=== PATIENT | female | born 1940 | race Caucasian/White ===

== ENCOUNTER 2016-10-13 12:31 | Inpatient (IN) ==
[2016-10-13] MEDS ORDERED: ATROPINE SULFATE PFS IVP PRN (13:13)
[2016-10-13] MEDS ORDERED: MORPHINE 4 MG/ML SYRINGE IVP PRN (13:13)
[2016-10-13] MEDS ORDERED: TYLENOL PO PRN (13:13)
[2016-10-13] MEDS ORDERED: VISTARIL INJ IM PRN (13:13)
[2016-10-13 13:35] VITALS: BMI 47.1
[2016-10-13 13:36] LABS: ABG BASE EXCESS 12 (-2.0-2.0); ABG HCO3 34.5 (22.0-26.0); ABG PCO2 43.1 mmHg (35-45); ABG PH 7.512 (7.35-7.45); ABG TCO2 36 (22.0-28.0)
[2016-10-13 13:37] LABS: BASOPHILS # (AUTO) 0.1 K/uL (0-0.2); BASOPHILS % (AUTO) 0.5 % (0.0-3.0); EOSINOPHILS # (AUTO) 0.2 K/ul (0.0-0.7); EOSINOPHILS % (AUTO) 1.4 % (0.0-7.0); HEMATOCRIT 42.7 % (37.0-47.0); HEMOGLOBIN 14.7 g/dl (12.0-16.0); IMMATURE GRANULOCYTE % (AUTO) 0.5 % (0.0-5.0); LYMPHOCYTES # (AUTO) 2.1 K/uL (0.60-3.4); LYMPHOCYTES % (AUTO) 19.2 (10.0-50.0); MEAN CORPUSCULAR HEMOGLOBIN 28.4 pg (27.0-31.0); MEAN CORPUSCULAR HGB CONC 34.4 (31.8-35.4); MEAN CORPUSCULAR VOLUME 82.6 fl (81.0-99.0); MONOCYTES # (AUTO) 0.7 K/uL (0.4-2.0); MONOCYTES % (AUTO) 5.9 (0-10); NEUTROPHILS # (AUTO) 8.1 K/ul (2.0-6.9); NEUTROPHILS % (AUTO) 72.5; PLATELET COUNT 248 10^3/uL (140-440); RED BLOOD COUNT 5.17 10^6/ul (4.20-5.40); WHITE BLOOD COUNT 11.11 K/ul (4.6-10.2)
[2016-10-13 14:01] LABS: ALANINE AMINOTRANSFERASE 37 U/L (12-78); ALBUMIN 3.6 g/dL (3.4-5.0); ALKALINE PHOSPHATASE 61 U/L (53-141); ANION GAP 13.6; ASPARTATE AMINO TRANSFERASE 32 U/L (15-37); BILIRUBIN,TOTAL 1.53 mg/dL (0.00-1.20); BLOOD UREA NITROGEN 20 mg/dL (7-18); BUN/CREATININE RATIO 24.09; CARBON DIOXIDE 32 mmol/L (23-31); CHLORIDE 88 mmol/L (98-107); CREATINE KINASE 81 U/L; CREATININE 0.83 mg/dL (0.60-1.30); GLUCOSE 124 mg/dL (82-115); MYOGLOBIN 73 ng/ml; POTASSIUM 3.6 mmol/L (3.5-5.10); SODIUM 130 mmol/L (136-145); TOTAL PROTEIN 7.2 g/dL (5.8-8.1)
[2016-10-13] MEDS: SOLU-CORTEF 250 MG IVP SCH ×2 (14:07→21:22)
[2016-10-13] MEDS: LEVAQUIN 500 MG in PREMIX 100 ML D5W 1 BAG IV SCH (14:08)
[2016-10-13] MEDS: TUSSIONEX PO SCH ×2 (14:51→20:40)
[2016-10-13] MEDS ORDERED: NON-FORMULARY MEDICATION (Meclizine Hcl [Meclizine Hcl] 25 MG) PO SCH (15:00)
[2016-10-13 15:19] LABS: BILIRUBIN,URINE Negative (NEGATIVE); KETONES,URINE Negative (NEGATIVE); LEUKOCYTE ESTERASE ,URINE Trace (NEGATIVE); NITRITE,URINE Negative (NEGATIVE); PROTEIN,URINE Negative (NEGATIVE); URINE, BLOOD Negative (NEGATIVE)
[2016-10-13] MEDS: ANTIVERT PO SCH ×2 (15:20→20:40)
[2016-10-13] MEDS: ULTRAM PO PRN (15:21)
[2016-10-13 15:27] LABS: ADD URINE MICROSCOPIC YES; BACTERIA,URINE TRACE (NOT PRESENT)
[2016-10-13] MEDS: PULMICORT 0.5 MG/2 ML NEB SCH (16:54)
[2016-10-13] MEDS: XOPENEX 1.25 MG NEB SCH ×2 (16:55→23:04)
--- NOTE | 2016-10-13 16:55 | DI ---
EXAM: Chest one view, frontal view only. HISTORY: Pneumonitis. COMPARISON: 01/26/2016. FINDINGS: The heart size is normal. There is no pulmonary vascular congestion. The lungs are radha r. No pleural effusion or pneumothorax is seen. No acute osseous abnormality is identified. Since the prior study, there has been no significant interval change. IMPRESSION: No acute cardiopulmonary process.
[2016-10-13] MEDS: ELIQUIS PO SCH (20:40)
[2016-10-13 22:07] LABS: CREATINE KINASE 76 U/L; MYOGLOBIN 64 ng/ml
[2016-10-14] MEDS: XOPENEX 1.25 MG NEB SCH ×4 (04:40→23:05)
[2016-10-14] MEDS: PULMICORT 0.5 MG/2 ML NEB SCH ×2 (04:40→16:57)
[2016-10-14] MEDS: SOLU-CORTEF 250 MG IVP SCH ×3 (05:54→20:49)
[2016-10-14] MEDS: PRILOSEC PO SCH (05:54)
[2016-10-14] MEDS ORDERED: ASPIRIN EC PO SCH (08:00)
[2016-10-14] MEDS: CALAN SR PO SCH (08:50)
[2016-10-14] MEDS ORDERED: NON-FORMULARY MEDICATION (Omeprazole Magnesium [Prilosec Otc] 20 MG) PO SCH ×22 (09:00)
[2016-10-14] MEDS ORDERED: NON-FORMULARY MEDICATION (Verapamil Hcl [Verapamil Er] 240 MG) PO SCH (09:00)
[2016-10-14] MEDS: HYZAAR 50-12.5 MG TAB PO SCH (09:02)
[2016-10-14] MEDS: LEVAQUIN 500 MG in PREMIX 100 ML D5W 1 BAG IV SCH (09:02)
[2016-10-14] MEDS: TUSSIONEX PO SCH ×2 (09:02→20:11)
[2016-10-14] MEDS: ELIQUIS PO SCH ×2 (09:03→20:11)
[2016-10-14] MEDS: ANTIVERT PO SCH ×3 (09:03→20:11)
--- NOTE | 2016-10-14 10:09 | PCM.PROG ---
Attending Provider: ATTENDING PROVIDER: Dr. OANH SULLIVAN DATE OF SERVICE: 10/14/16 SUBJECTIVE: This 76 year old WHITE/ F was hospitalized 10/13/16. The patient is hospitalized with acute bronchitis, pneumonitis, dehydration and pleuritic pain. She states that she rested well. She is doing better, now has no pleuritic pain. Cough is much less. No fever no chills. No PND, no orthopnea. Appetite is improved. REVIEW OF SYSTEMS: CONSTITUTIONAL: No night sweats. No fatigue, malaise, lethargy. No fever or chills. HEENT: Eyes: No visual changes. No eye pain. No eye discharge. ENT: No runny nose. No epistaxis. No sinus pain. No odynophagia. No congestion. RESPIRATORY: Less cough and congestion. No hemoptysis. CARDIOVASCULAR: No angina symptoms. No CHF symptoms. No atypical chest pain for CAD. No palpitations. No shortness of breath. No PND, no orthopnea. GASTROINTESTINAL: Improved appetite. No abdominal pain. No nausea or vomiting. No diarrhea or constipation. No hematemesis. No hematochezia. GENITOURINARY: No urgency. No frequency. No dysuria. No hematuria. No obstructive symptoms. No discharge. No pain. No significant abnormal bleeding. MUSCULOSKELETAL: No musculoskeletal pain; no joint swelling. NEUROLOGICAL: Awake, alert, oriented to time, place and person. No headache. No neck pain. No syncope. No seizures. No dizziness. PSYCHIATRIC: Not anxious. No depression. No suicidal thoughts. No homicidal thoughts. SKIN: No rash. No lesions. No wounds. ENDOCRINE: No unexplained weight loss. No weight gain. HEMATOLOGIC/LYMPHATIC: No anemia. No purpura. No petechiae. No prolonged or excessive bleeding. No palpable lymph nodes. PHYSICAL EXAMINATION: GENERAL: The patient is awake, alert and oriented, sitting on the side of the bed in no distress. VITAL SIGNS: Temperature 97.0 F, Pulse 78, Respiratory Rate 20, BP 122/82, Pulse Ox 94% HEENT: Head normocephalic, atraumatic. Eyes: Extraocular muscles are intact. Pupils are equal, round and reactive to light and accommodation. Ears: No lesions. Nose appeared normal. Throat: No exudate or erythema. NECK: Supple. No JVD, no carotid bruit. No lymphadenopathy or thyromegaly. LUNGS: Decreased breath sounds with mild wheeze but much better air entry than the past few days. Percussion note normal. Chest symmetrical. HEART: S1, S2, no S3. No murmurs. No cyanosis or clubbing. No ascites. Pulses: Dorsalis pedis and posterior tibial pulses +1 to +2 both sides. ABDOMEN: Soft. Non-tender. Bowel sounds active. No CVA tenderness. No mass felt. EXTREMITIES: No edema. Full range of motion of all extremities, equal. NEUROLOGIC: No focal deficit. Cranial nerves II through XII are grossly intact. No headache, no double vision or headache. SKIN: Not dry. Intact. Turgor-normal. LYMPHATIC: No palpable lymph nodes/no lymphedema. MUSCULOSKELETAL: Normal joints with no swelling. Muscle tone is normal. LAB REVIEW: 10/13/16 13:30 10/13/16 13:30 10/13/16 21:00: Total Creatine Kinase 76, Myoglobin 64, Troponin I < 0.0100 10/13/16 15:10: Urine Color Yellow, Urine Clarity Clear, Urine pH 6.0, Ur Specific [place] 1.010, Urine Protein Negative, Urine Glucose (UA) Negative, Urine Ketones Negative, Urine Blood Negative, Urine Nitrite Negative, Urine Bilirubin Negative, Urine Urobilinogen 0.2, Ur Leukocyte Esterase Trace, Urine Microscopic RBC 0-2, Urine Microscopic WBC 5-10, Ur Squamous Epith Cells 10-20, Ur Renal Epithelial Cell 0-2, Urine Bacteria Trace 10/13/16 13:30: WBC 11.11 H, RBC 5.17, Hgb 14.7, Hct 42.7, MCV 82.6, MCH 28.4, MCHC 34.4, RDW Coeff of Melissa 14.5, Plt Count 248, Immature Gran % (Auto) 0.5, Neut % (Auto) 72.5, Lymph % (Auto) 19.2, [place] % (Auto) 5.9, Eos % (Auto) 1.4, Baso % (Auto) 0.5, Immature Gran # (Auto) 0.1, Neut # 8.1 H, Lymph # 2.1, [place] # 0.7, Eos # 0.2, Baso # 0.1, Puncture Site L rad, O2 Saturation 94.0 L, ABG pH 7.512 H*, ABG pCO2 43.1, ABG pO2 63.0 L, ABG HCO3 34.5 H, ABG Total CO2 36 H, ABG Base Excess 12 H, [place] Test +, FiO2 % 21.0, Sodium 130 L, Potassium 3.6, Chloride 88 L, Carbon Dioxide 32 H, Anion Gap 13.6, BUN 20 H, Creatinine 0.83, Estimated GFR (MDRD) 67.00, BUN/Creatinine Ratio 24.09, Glucose 124 H, Calcium 10.0, Total Bilirubin 1.53 H, AST 32, ALT 37, Alkaline Phosphatase 61, Total Creatine Kinase 81, Myoglobin 73, Troponin I < 0.0100, B-Natriuretic Peptide 91 , Total Protein 7.2, Albumin 3.6, Globulin 3.6, Albumin/Globulin Ratio 1.00 ASSESSMENT: 1. Acute bronchitis/pleuritic pain (bilateral)/dehydration all resolving. 2. Diabetes mellitus type 2 3. CAD 4. CHF 5. Atrial fibrillation 6. Hypertension, LVH 7. Neuropathy 8. Cardiomyopathy 9. Bilateral TKR 10. Metabolic syndrome 11. Vitamin D deficiency 12. Osteopenia PLAN: 1. Continue same treatment with antibiotics, nebs and steroids. Plan and coordination of the patient's care discussed in the presence of [employer] Worker and nurse. CONDITION: Stable SCRIBED BY: HASMUKH MCKEON Fruit Shipper scribed while in presence of service performed by Dr. OANH SULLIVAN on 10/14/16 ([id number])
--- NOTE | 2016-10-14 14:21 | HP ---
DATE OF SERVICE: 10/13/16 REASON FOR HOSPITALIZATION: Cough and congestion times two months HISTORY OF PRESENT ILLNESS: This is a 76-year-old female who was seen in the office on 08/18/16, , 10/04/16 for cough and congestion. The patient on all those visits was treated with antibiotics and steroids with some improvement at times. At the present time, the patient has a poor appetite, weakness and fatigue. No symptoms of CHF or CAD. REVIEW OF SYSTEMS: CONSTITUTIONAL: Fatigue. No fever. HEENT: Sinus drainage. No sore throat. RESPIRATORY: Cough and congestion. No hemoptysis. CARDIOVASCULAR: Shortness of breath with mild exertion. No atypical chest pain for coronary artery disease. No angina, CHF symptoms or palpitations. GASTROINTESTINAL: No melena or abdominal pain. No GERD. GENITOURINARY: No hematuria, no polyuria. CLERICAL ADMINISTRATIVE ASSISTANT: Dizziness. No blackout, no headache, no double vision. MUSCULOSKELETAL: Osteoarthritis pain. No joint swelling. ENDOCRINE: No weight loss, no weight gain. SKIN: Not dry, no rash. PSYCHIATRIC: Anxious. No depression, no suicidal thoughts, no homicidal thoughts. PAST MEDICAL HISTORY: 1. Diabetes mellitus type 2 2. CAD 3. Atrial fibrillation 4. Hypertension, LVH 5. Neuropathy 6. Cardiomyopathy 7. Metabolic syndrome 8. Vitamin D deficiency 9 . Osteopenia PAST SURGICAL HISTORY: 1. Bilateral TKR 2. Cholecystectomy 3. Hysterectomy SOCIAL HISTORY: The patient is a nonsmoker; with four children. No alcohol use. The patient is retired. FAMILY HISTORY: Father and mother . Brother - five (1 ). Four sisters (1 ). MEDICATIONS: (Home) 1. Verapamil 240 mg p.o. daily 2. Apixaban (Eliquis) 5 mg p.o. b.i.d. 3. Tramadol 50 mg p.o. t.i.d. p.r.n. 4. Omeprazole (Prilosec) 20 mg p.o. daily 5. Meclizine 25 mg p.o. t.i.d. 6. Cephalexin (Keflex) 500 mg p.o. q.12hr 7. Metolazone (Zaroxolyn) 2.5 mg p.o. MoWeFr 8. Losartan/Hydrochlorothiazide one tablet 0.5 mg p.o. daily ALLERGIES: ATIVAN, BENICAR, CLARITIN, ERYTHROMYCIN, PENICILLIN PHYSICAL EXAMINATION: V/S: Pulse 90, BP 122/74, temperature 98, 02 sat 91%. Weight 282.8 pounds, Height 5'5". GENERAL APPEARANCE: Oriented times three. HEENT: Normal. NECK: No JVP, no bruits. RESPIRATORY: Lungs are clear with decreased breath sounds. CARDIOVASCULAR: S1, S2, no S3, no murmurs. No cyanosis, clubbing. No ascites. GI/ABDOMEN: No tenderness. Bowel sounds are active. EXTREMITIES: No edema, pulses +1, equal. CLERICAL ADMINISTRATIVE ASSISTANT: Deep tendon reflexes, sensory, motor and gait all normal. RECTAL/PELVIC: Colonoscopy - Dr. Vu. Pelvic - Hysterectomy. Mammogram 2007 , refused repeat. LABS: ABGs p02 63, pc02 43, pH 7.51 with 94% saturation on room air. Potassium 3.6, glucose 124, creatinine 0.8, BUN 20. Liver profile negative. Hemoglobin 14.7, hematocrit 42, WBC 11,000, normal differential. ASSESSMENT: 1. PNEUMONITIS/BRONCHITIS 2. DEHYDRATION 3. PLEURITIC PAIN (BILATERAL) 4. DIABETES MELLITUS TYPE 2 5. CORONARY ARTERY DISEASE 6. CONGESTIVE HEART FAILURE 7. ATRIAL FIBRILLATION 8. HYPERTENSION - LVH 9. NEUROPATHY 10. CARDIOMYOPATHY 11. BILATERAL TKR 12. METABOLIC SYNDROME 13. VITAMIN D DEFICIENCY 14. OSTEOPENIA PLAN: 1. Admit regular/diet regular 2. Routine telemetry orders 3. Sputum for culture and sensitivity 4. Blood cultures times two 5. IV Solu-Cortef 125 mg IV now and 8 hourly 6. Nebs Pulmicort b.i.d. 7. Continue all home medications 8. Levaquin 500 mg IV 24 hourly 9. Tussionex one teaspoon p.o. b.i.d. 10. ABG 11. BNP TIME SPENT: More than 70 minutes. MTDD
[2016-10-15] MEDS: PULMICORT 0.5 MG/2 ML NEB SCH ×2 (04:46→17:03)
[2016-10-15] MEDS: XOPENEX 1.25 MG NEB SCH ×4 (04:46→23:16)
[2016-10-15] MEDS: PRILOSEC PO SCH (05:32)
[2016-10-15] MEDS: SOLU-CORTEF 250 MG IVP SCH (05:32)
[2016-10-15] MEDS: HYZAAR 50-12.5 MG TAB PO SCH (08:40)
[2016-10-15] MEDS: TUSSIONEX PO SCH ×2 (08:40→20:24)
[2016-10-15] MEDS: LEVAQUIN 500 MG in PREMIX 100 ML D5W 1 BAG IV SCH (08:40)
[2016-10-15] MEDS: ANTIVERT PO SCH ×3 (08:41→20:24)
[2016-10-15] MEDS: ZAROXOLYN PO SCH (08:41)
[2016-10-15] MEDS: CALAN SR PO SCH (08:41)
[2016-10-15] MEDS: ELIQUIS PO SCH ×2 (08:41→20:24)
[2016-10-15] MEDS ORDERED: TORADOL IVP STA (08:48)
[2016-10-15] MEDS: PREDNISONE PO SCH ×2 (14:44→17:05)
[2016-10-16] MEDS: PRILOSEC PO SCH (05:30)
[2016-10-16] MEDS: LEVAQUIN PO SCH (05:30)
[2016-10-16] MEDS: PULMICORT 0.5 MG/2 ML NEB SCH ×2 (05:48→17:11)
[2016-10-16] MEDS: XOPENEX 1.25 MG NEB SCH ×4 (05:49→23:22)
[2016-10-16 08:32] LABS: BASOPHILS % (AUTO) 0.4 % (0.0-3.0); EOSINOPHILS # (AUTO) 0.1 K/ul (0.0-0.7); EOSINOPHILS % (AUTO) 0.7 % (0.0-7.0); HEMATOCRIT 42.9 % (37.0-47.0); HEMOGLOBIN 14.5 g/dl (12.0-16.0); IMMATURE GRANULOCYTE % (AUTO) 0.7 % (0.0-5.0); LYMPHOCYTES # (AUTO) 1.6 K/uL (0.60-3.4); LYMPHOCYTES % (AUTO) 14.4 (10.0-50.0); MEAN CORPUSCULAR HEMOGLOBIN 28.8 pg (27.0-31.0); MEAN CORPUSCULAR HGB CONC 33.8 (31.8-35.4); MEAN CORPUSCULAR VOLUME 85.3 fl (81.0-99.0); MONOCYTES # (AUTO) 0.8 K/uL (0.4-2.0); MONOCYTES % (AUTO) 6.9 (0-10); NEUTROPHILS # (AUTO) 8.8 K/ul (2.0-6.9); NEUTROPHILS % (AUTO) 76.9; PLATELET COUNT 219 10^3/uL (140-440); RED BLOOD COUNT 5.03 10^6/ul (4.20-5.40); WHITE BLOOD COUNT 11.38 K/ul (4.6-10.2)
[2016-10-16] MEDS: HYZAAR 50-12.5 MG TAB PO SCH (08:32)
[2016-10-16] MEDS: ELIQUIS PO SCH ×2 (08:32→20:17)
[2016-10-16] MEDS: TUSSIONEX PO SCH ×2 (08:32→20:18)
[2016-10-16] MEDS: CALAN SR PO SCH (08:32)
[2016-10-16] MEDS: PREDNISONE PO SCH ×3 (08:32→17:10)
[2016-10-16] MEDS: ANTIVERT PO SCH ×3 (08:32→20:17)
[2016-10-16 08:53] LABS: ALBUMIN 3.6 g/dL (3.4-5.0); ANION GAP 16.5; BILIRUBIN,TOTAL 0.85 mg/dL (0.00-1.20); BUN/CREATININE RATIO 19.31; CALCIUM 9.8 mg/dL (8.2-10.2); CREATININE 0.88 mg/dL (0.60-1.30); POTASSIUM 3.5 mmol/L (3.5-5.10); TOTAL PROTEIN 7.2 g/dL (5.8-8.1)
[2016-10-17 05:09] LABS: BASOPHILS % (AUTO) 0.3 % (0.0-3.0); EOSINOPHILS % (AUTO) 0.2 % (0.0-7.0); HEMATOCRIT 43.7 % (37.0-47.0); HEMOGLOBIN 14.5 g/dl (12.0-16.0); IMMATURE GRANULOCYTE % (AUTO) 0.5 % (0.0-5.0); LYMPHOCYTES # (AUTO) 1.5 K/uL (0.60-3.4); LYMPHOCYTES % (AUTO) 11.7 (10.0-50.0); MEAN CORPUSCULAR HEMOGLOBIN 28.5 pg (27.0-31.0); MEAN CORPUSCULAR HGB CONC 33.2 (31.8-35.4); MONOCYTES # (AUTO) 0.9 K/uL (0.4-2.0); MONOCYTES % (AUTO) 6.7 (0-10); NEUTROPHILS # (AUTO) 10.4 K/ul (2.0-6.9); NEUTROPHILS % (AUTO) 80.6; PLATELET COUNT 226 10^3/uL (140-440); RED BLOOD COUNT 5.08 10^6/ul (4.20-5.40); WHITE BLOOD COUNT 12.92 K/ul (4.6-10.2)
[2016-10-17] MEDS: XOPENEX 1.25 MG NEB SCH ×4 (05:26→23:28)
[2016-10-17] MEDS: PULMICORT 0.5 MG/2 ML NEB SCH ×2 (05:26→17:00)
[2016-10-17] MEDS: PRILOSEC PO SCH (05:30)
[2016-10-17] MEDS: LEVAQUIN PO SCH (05:30)
[2016-10-17 05:55] LABS: ALBUMIN 3.4 g/dL (3.4-5.0); ALBUMIN/GLOBULIN RATIO 0.83; BILIRUBIN,TOTAL 0.75 mg/dL (0.00-1.20); BUN/CREATININE RATIO 20.23; CALCIUM 9.7 mg/dL (8.2-10.2); CREATININE 0.84 mg/dL (0.60-1.30); TOTAL PROTEIN 7.5 g/dL (5.8-8.1)
[2016-10-17] MEDS: TUSSIONEX PO SCH ×2 (08:16→20:30)
[2016-10-17] MEDS: HYZAAR 50-12.5 MG TAB PO SCH (08:16)
[2016-10-17] MEDS: ANTIVERT PO SCH ×3 (08:16→20:29)
[2016-10-17] MEDS: PREDNISONE PO SCH ×3 (08:17→17:20)
[2016-10-17] MEDS: CALAN SR PO SCH (08:17)
[2016-10-17] MEDS: ELIQUIS PO SCH ×2 (08:17→20:29)
[2016-10-18] MEDS: ULTRAM PO PRN (02:36)
[2016-10-18] MEDS: XOPENEX 1.25 MG NEB SCH ×2 (05:29→11:02)
[2016-10-18] MEDS: PULMICORT 0.5 MG/2 ML NEB SCH (05:29)
[2016-10-18] MEDS: LEVAQUIN PO SCH (05:46)
[2016-10-18] MEDS: PRILOSEC PO SCH (05:46)
[2016-10-18] MEDS: CALAN SR PO SCH (08:44)
[2016-10-18] MEDS: HYZAAR 50-12.5 MG TAB PO SCH (08:44)
[2016-10-18] MEDS: TUSSIONEX PO SCH (08:44)
[2016-10-18] MEDS: ZAROXOLYN PO SCH (08:45)
[2016-10-18] MEDS: PREDNISONE PO SCH ×2 (08:45→11:17)
[2016-10-18] MEDS: ELIQUIS PO SCH (08:45)
[2016-10-18] MEDS: ANTIVERT PO SCH (08:45)
[2016-10-18 10:50] VITALS: BP 154/97; TEMP 97
--- NOTE | 2016-10-18 11:11 | CM.DICTOOL ---
ADMISSION: 10/13/16 12:31 DISCHARGE: October 18, 2016 DATE OF SERVICE: 10/18/16 FINAL DIAGNOSIS Acute bronchitis Dehydration Pleuritic pain Pneumonitis Diabetes Mellitus, type 2 Coronary Artery Disease Atrial Fibrillation Congestive Heart Failure Hypertension-LVH Neuropathy Metabolic Syndrome Osteopenia Bilateral Total Knee Replacement Cholecystectomy Hysterectomy LAST VITALS Temp Pulse Resp BP Pulse Ox 96.5 F L 89 24 135/86 93 L 10/18/16 05:48 10/18/16 05:48 10/18/16 05:48 10/18/16 05:48 10/18/16 05:48 ACTIVE HOME MEDICATIONS Apixaban (Eliquis) 5 mg PO BID [facility] Last Admin: 10/18/16 08:45 Dose: 5 mg HCTZ/Losartan Potassium (Hyzaar 50-12.5 Mg Tab) 0.5 tab PO DAILY [facility] Last Admin: 10/18/16 08:44 Dose: 0.5 tab Meclizine HCl (Antivert) 25 mg PO TID [facility] Last Admin: 10/18/16 08:45 Dose: 25 mg Metolazone (Zaroxolyn) 2.5 mg PO MoWeFr@0900 [facility] Last Admin: 10/18/16 08:45 Dose: 2.5 mg Omeprazole (Prilosec) 20 mg PO QDAC [facility] Last Admin: 10/18/16 05:46 Dose: 20 mg Tramadol HCl (Ultram) 50 mg PO TID PRN PRN Reason: pain Last Admin: 10/18/16 02:36 Dose: 50 mg Verapamil HCl (Calan Sr) 240 mg PO DAILYWM [facility] Last Admin: 10/18/16 08:44 Dose: 240 mg ALLERGIES Penicillins Adverse Reaction (Intermediate, Verified 10/13/16 13:56) Unknown COLLEEN Inhibitors Adverse Reaction (Verified 10/13/16 13:56) Cough dexamethasone [From Decadron] Adverse Reaction (Verified 10/13/16 13:56) Unknown erythromycin base Adverse Reaction (Verified 10/13/16 13:56) Unknown loratadine [From Claritin] Adverse Reaction (Verified 10/13/16 13:56) Unknown lorazepam [From Ativan] Adverse Reaction (Verified 10/13/16 13:56) Unknown olmesartan medoxomil [From Benicar] Adverse Reaction (Verified 10/13/16 13:56) Unknown NEW PRESCRIPTIONS: Levaquin 500 mg daily for 5 days Prednisone 10 mg daily for 5 days. Take with food. Tussionex syrup 1 teaspoon at bedtime daily for 5 days SMOKING: Not applicable DISEASE SPECIFIC EDUCATION: Bronchitis Medications, including oral steroids Follow up with physician LAB REVIEW: 10/17/16 05:05 10/17/16 05:05 PLAN: Discharge home Diet: Consistent Carbohydrates Activity: Gradually resume activity as tolerated May continue to use home nebulizer treatments (albuterol) three times daily as needed for cough. An appointment has been scheduled with Dr. Rose on October 22, 2016 at 11:15 am Ms. Israel is alert and oriented x 3. She is independent with ADL'S and is ambulatory without use of assistance or assistive device in the hallways. No reports of abdominal pain or nausea. Meal intakes are good at 100%. Her voice remains hoarse at intervals, but this increases with much conversation. She reports an infrequent cough that is non-productive. Skin is in good condition and free of open areas, rashes or irritation. David Rose MD
--- NOTE | 2016-10-18 13:10 | PCM.PROG ---
Attending Provider: ATTENDING PROVIDER: Dr. OANH SULLIVAN DATE OF SERVICE: 10/18/16 - DISCHARGE NOTE SUBJECTIVE: This 76 year old WHITE/ F was hospitalized 10/13/16. The patient is hospitalized with bronchitis, pneumonitis, and pleuritic pain. The bronchitis is still there but mild. The voice - laryngitis is better. No pleuritic pain. Appetite is better. The patient is stronger and is up and about. REVIEW OF SYSTEMS: CONSTITUTIONAL: No night sweats. No fatigue, malaise, lethargy. No fever or chills. HEENT: Eyes: No visual changes. No eye pain. No eye discharge. ENT: No runny nose. No epistaxis. No sinus pain. No odynophagia. No congestion. RESPIRATORY: Less cough, no congestion. No hemoptysis. CARDIOVASCULAR: No angina symptoms. No CHF symptoms. No atypical chest pain for CAD. No palpitations. No shortness of breath. GASTROINTESTINAL: Appetite is better. No abdominal pain. No nausea or vomiting. No diarrhea or constipation. No hematemesis. No hematochezia. GENITOURINARY: No urgency. No frequency. No dysuria. No hematuria. No obstructive symptoms. No discharge. No pain. No significant abnormal bleeding. MUSCULOSKELETAL: No musculoskeletal pain; no joint swelling. NEUROLOGICAL: Awake, alert, oriented to time, place and person. No headache. No neck pain. No syncope. No seizures. No dizziness. PSYCHIATRIC: Not anxious. No depression. No suicidal thoughts. No homicidal thoughts. SKIN: No rash. No lesions. No wounds. ENDOCRINE: No unexplained weight loss. No weight gain. HEMATOLOGIC/LYMPHATIC: No anemia. No purpura. No petechiae. No prolonged or excessive bleeding. No palpable lymph nodes. PHYSICAL EXAMINATION: GENERAL: The patient is awake, alert and oriented, sitting on side of bed in no distress. VITAL SIGNS: Temperature 96.5 F, Pulse 89, Respiratory Rate 24, BP 135/86, Pulse Ox 93% HEENT: Head normocephalic, atraumatic. Eyes: Extraocular muscles are intact. Pupils are equal, round and reactive to light and accommodation. Ears: No lesions. Nose appeared normal. Throat: No exudate or erythema. NECK: Supple. No JVD, no carotid bruit. No lymphadenopathy or thyromegaly. LUNGS: Decreased breath sounds but clear to auscultation. Percussion note normal. Chest symmetrical. HEART: S1, S2, no S3. No murmurs. No cyanosis or clubbing. No ascites. Pulses: Dorsalis pedis and posterior tibial pulses +1 to +2 both sides. ABDOMEN: Soft. Non-tender. Bowel sounds active. No CVA tenderness. No mass felt. EXTREMITIES: No edema. Full range of motion of all extremities, equal. NEUROLOGIC: No focal deficit. Cranial nerves II through XII are grossly intact. No headache, no double vision or headache. SKIN: Not dry. Intact. Turgor-normal. LYMPHATIC: No palpable lymph nodes/no lymphedema. MUSCULOSKELETAL: Normal joints with no swelling. Muscle tone is normal. LAB REVIEW: 10/17/16 05:05 10/17/16 05:05 ASSESSMENT: 1. Acute bronchitis 2. Pneumonitis 3. Pleuritic pain PLAN: 1. Discharge home 2. Tussionex for five days, one teaspoon at night 3. Levaquin 500 mg p.o. for five days 4. Prednisone 10 mg daily for five days 5. Will see the patient back in my office in 5 days Plan and coordination of the patient's care discussed in the presence of Crime Victim Specialist and nurse. EDUCATION: Discussed plan for discharge with the patient. She voiced understanding and is agreeable. Discussed risks and benefits of steroids to include avascular necrosis of femoral head, cataracts, osteoporosis, rise in blood sugar level. CONDITION: Stable SCRIBED BY: HASMUKH MCKEON Network Controller scribed while in presence of service performed by Dr. OANH SULLIVAN on 10/18/16 ([id number])
--- NOTE | 2016-10-20 07:25 | ECHO2D ---
Date of Exam: 10/18/16 Ordering Physician: OANH SULLIVAN Reason for Echo: ATRIAL FIB, EVALUATE LVEF Auscultation: S1, S2 M-Mode Normal Adult Results LV Dimensions Normal Adult Results AoV Opening excursions >1.6 >1.6 LVEDD-base- 3.5-5.8 5.5 Ao root dimensions 2.0-3.7 3.5 LVESD-base- 3.1-4.6 L. Atrium dimensions 1.9-3.8 5.5 Post. Wall thickness 0.8-1.1 1.4 IV septum (thickness) 0.7-1.2 1.5 Post. Wall excursion 0.72-1.3 NORMAL Septal motion 0.7 Systolic motion R. Ventricular cavity 1.5-2.0 NORMAL LVEF 60% 51% Paradoxical septal wall motion NORMAL 2-D : LEFT VENTRICULAR CONTRACTILITY--NORMAL, BORDERLINE LEFT VENTRICLE SIZE, ENLARGED LEFT ATRIAL CAVITY, NO EFFUSION, NO THROMBUS M-MODE: MV: NORMAL AV: NORMAL TV: NORMAL PV: CHAMBER SIZE: ENLARGED LEFT ATRIAL CAVITY WALL MOTION: NORMAL PERICARDIUM: NORMAL INTERPRETATION: 1. LEFT VENTRICULAR HYPERTROPHY (MODERATE) WITH ENLARGED LEFT ATRIAL CAVITY ( 5.5 CM) 2. STIFF LEFT VENTRICLE WITH LEFT VENTRICULAR EJECTION FRACTION 50% 3. NORMAL VALVES 4. LEFT VENTRICLE SIZE 5.5 CM MTDD
--- NOTE | 2016-10-20 08:56 | DS ---
DATE OF SERVICE: 10/18/16 FINAL DIAGNOSIS: 1. Acute Bronchitis 2. Pleuritic pain 3. Pneumonitis 4. Diabetes Mellitus, type 2 5. Coronary artery disease 6. Atrial fibrillation 7. Congestive heart Failure 8. Hypertension LVH 9. Neuropathy 10.Metabolic Syndrome 11.Osteopenia LAST VITALS: Temperature 96.5, pulse 89, respiratory rate 24, blood pressure 135/86 and pulse ox 93% DISCHARGE INSTRUCTIONS: Discharge home. May continue to use home nebulizer treatment three times daily as needed for cough. Appointment has been scheduled with Dr. Rose on October 22, 2016 at 11:15am. MEDICATIONS AT DISCHARGE: Eliquis 5mg PO twice a day Hyzaar 50-12.5mg 0.5 tablet PO daily Antivert 25mg PO three times a day Zaroxolyn 2.5mg PO MoWeFr @900 Prilosec 20mg PO QDAC Ultram 50mg PO three times a day PRN Calan SR 240mg PO daily ALLERGIES: Penicillins COLLEEN inhibitors Decadron Erythromycin Loratadine Lorazepam Olmesartan NEW PRESCRIPTIONS: Levaquin 500mg daily for 5 days Prednisone 10mg Daily for five days. Take with food Tussionex syrup one teaspoon at bedtime daily for 5 days. DIET INSTRUCTIONS: Consistent Carbohydrates ACTIVITY: Gradually resume activity as tolerated SMOKING: N/A DISEASE SPECIFIC EDUCATION: Bronchitis Medications, including oral steroids Followup with physician HOSPITAL COURSE: The patient is a 76 year old white female hospitalized with acute bronchitis, pneumonitis, dehydration and pleuritic pain. All of the symptoms have practically have subsided except for dry cough. The patient was treated with IV antibiotics, IV steroids, NEBS treatment, IV fluids initially. The patient did not have any evidence of any congestive heart failure. She was monitored. She has atrial fibrillation and the echocardiogram showed normal LV contractility with LVH with enlarged LA Cavity. The LV cavity is borderline which is 5.5cm. LA cavity is more than 5cm. The patient was discharged on Levaquin and Steroids to be taken for 5 days and I will see her back in five days. The BNP on this admission was 91 which is normal. Again the patient was counseled about losing weight and her BMI is 47 which is morbid obesity. CONDITION: Stable. TIME SPENT: More than 60 minutes. [facility]
--- NOTE | 2016-10-20 08:58 | PN ---
10/13/16: Level 5 10/14/16: Intermediate 10/15/16: Intermediate 10/16/16: Intermediate 10/17/16: Intermediate 10/18/16: D as in discharge MTDD
--- NOTE | 2016-10-21 12:38 | PN ---
DATE OF SERVICE: 10/16/16 SUBJECTIVE: The patient is a 76 year old white female hospitalized with pneumonitis, bronchitis, dehydration and pleuritic pain. The patient's cough still persists which is dry and hacky. She is feeling better. The fatigue is slowly going away. The patient has been on steroids, IV antibiotics and NEBS treatment. They patient is resting very well. REVIEW OF SYSTEMS: CONSTITUTIONAL: No night sweats. No fatigue, malaise, lethargy. No fever or chills. HEENT: Eyes: No visual changes. No eye pain. No eye discharge. ENT: No runny nose. No epistaxis. No sinus pain. No sore throat. No odynophagia. No congestion. RESPIRATORY: No cough, no congestion. No hemoptysis. CARDIOVASCULAR: No angina symptoms. No CHF symptoms. No atypical chest pain for CAD. No palpitations. No shortness of breath. GASTROINTESTINAL: No abdominal pain. No nausea or vomiting. No diarrhea or constipation. No hematemesis. No hematochezia. GENITOURINARY: No urgency. No frequency. No dysuria. No hematuria. No obstructive symptoms. No discharge. No pain. No significant abnormal bleeding. MUSCULOSKELETAL: No musculoskeletal pain; no joint swelling. NEUROLOGICAL: No headache. No neck pain. No syncope. No seizures. No dizziness. PSYCHIATRIC: Not anxious. No depression. No suicidal thoughts. No homicidal thoughts. SKIN: No rash. No lesions. No wounds. ENDOCRINE: No unexplained weight loss. No weight gain. HEMATOLOGIC/LYMPHATIC: No anemia. No purpura. No petechiae. No prolonged or excessive bleeding. No palpable lymph nodes. PHYSICAL EXAMINATION: GENERAL: The patient is oriented to time, place and person. VITAL SIGNS: Temperature 97.1, pulse 44, respiratory rate 20, blood pressure 135/79 and pulse ox 92%. HEENT: Head normocephalic, atraumatic. Eyes: Extraocular muscles are intact. Pupils are equal, round and reactive to light and accommodation. Ears: No lesions. Nose appeared normal. Throat: No exudate or erythema. NECK: Supple. No JVD, no carotid bruit. No lymphadenopathy or thyromegaly. LUNGS: Decreased breath sounds with mild wheeze. Percussion note normal. Chest symmetrical. HEART: S1, S2, no S3. No murmurs. No cyanosis or clubbing. No ascites. Pulses: Dorsalis pedis and posterior tibial pulses +1 to +2 both sides. ABDOMEN: Soft. Nontender. Bowel sounds active. No CVA tenderness. No mass felt. EXTREMITIES: No edema. Full range of motion of all extremities, equal. NEUROLOGIC: No focal deficit. Cranial nerves II through XII are grossly intact. No headache, no double vision or headache. SKIN: Not dry. Intact. Turgor - normal. LYMPHATIC: No palpable lymph nodes/no lymphedema. MUSCULOSKELETAL: Normal joints with no swelling. Muscle tone is normal. ASSESSMENT: 1. Acute bronchitis/pneumonitis, resolved 2. Dehydration, resolved 3. Chronic lung disease 4. Obesity PLAN: 1. Continue NEB treatment 2. IV antibiotics 3. Steroids 4. Will do echocardiogram before discharge. 5. Will do CBC and CMP tomorrow. CONDITION: Stable. TIME SPENT: More than 30 minutes. Plan and coordination of the patient's care discussed in the presence of nurse. WOOD
--- NOTE | 2016-10-22 11:04 | PN ---
DATE OF SERVICE: 10/17/16 SUBJECTIVE: 76-year-old white female hospitalized with cough, congestion and pneumonitis. The patient also had pleuritic pain. Her condition has steadily improved. She is still coughing, which is dry. She is also extremely fatigued as usual but gaining her strength. She is able to walk to the bathroom. The appetite seems to have improved. REVIEW OF SYSTEMS: CONSTITUTIONAL: Fatigue. No night sweats. No fever or chills. HEENT: Eyes: No visual changes. No eye pain. No eye discharge. ENT: No runny nose. No epistaxis. No sinus pain. No sore throat. No odynophagia. No congestion. RESPIRATORY: Mild cough and congestion. No hemoptysis. CARDIOVASCULAR: No angina symptoms. No CHF symptoms. No atypical chest pain for CAD. No palpitations. No shortness of breath. GASTROINTESTINAL: No abdominal pain. No nausea or vomiting. No diarrhea or constipation. No hematemesis. No hematochezia. GENITOURINARY: No urgency. No frequency. No dysuria. No hematuria. No obstructive symptoms. No discharge. No pain. No significant abnormal bleeding. MUSCULOSKELETAL: No musculoskeletal pain; no joint swelling. NEUROLOGICAL: No headache. No neck pain. No syncope. No seizures. No dizziness. PSYCHIATRIC: Not anxious. No depression. No suicidal thoughts. No homicidal thoughts. SKIN: No rash. No lesions. No wounds. ENDOCRINE: No unexplained weight loss. No weight gain. HEMATOLOGIC/LYMPHATIC: No anemia. No purpura. No petechiae. No prolonged or excessive bleeding. No palpable lymph nodes. PHYSICAL EXAMINATION: GENERAL: The patient is oriented to time, place and person. VITAL SIGNS: Temperature 97.2, pulse 77, respiratory rate 15, BP 137/85, pulse ox 99%. HEENT: Head normocephalic, atraumatic. Eyes: Extraocular muscles are intact. Pupils are equal, round and reactive to light and accommodation. Ears: No lesions. Nose appeared normal. Throat: No exudate or erythema. NECK: Supple. No JVD, no carotid bruit. No lymphadenopathy or thyromegaly. LUNGS: Decreased breath sounds. Clear to auscultation. Percussion note normal. Chest symmetrical. HEART: S1, S2, no S3. No murmurs. No cyanosis or clubbing. No ascites. Pulses: Dorsalis pedis and posterior tibial pulses +1 to +2 both sides. ABDOMEN: Soft. Nontender. Bowel sounds active. No CVA tenderness. No mass felt. EXTREMITIES: No edema. Full range of motion of all extremities, equal. NEUROLOGIC: No focal deficit. Cranial nerves II through XII are grossly intact. No headache, no double vision or headache. SKIN: Not dry. Intact. Turgor - normal. LYMPHATIC: No palpable lymph nodes/no lymphedema. MUSCULOSKELETAL: Normal joints with no swelling. Muscle tone is normal. LABS: Hemoglobin 14, hematocrit 43, WBC 12,000, normal differential. BNP normal. ASSESSMENT: 1. ACUTE BRONCHITIS/PNEUMONITIS 2. CHRONIC LUNG DISEASE LIKELY BRONCHIAL ASTHMA 3. HYPERTENSION 4. ATRIAL FIBRILLATION PLAN: 1. Continue Eliquis 2. Continue antibiotics, steroids, nebs treatment 3. Condition improved, will do echocardiogram before discharge. CONDITION: Stable. TIME SPENT: More than 30 minutes. Plan and coordination of the patient's care discussed in the presence of nurse. WOOD
== END 2016-10-18 12:58 | disposition home or self-care (01) | DRG 202 ==
LOC: MEDSURG A 12:31
PROVIDERS: ADMIT Internal Medicine; ATTEND Internal Medicine
DX: J20.9 Acute bronchitis, unspecified (principal); J18.9 Pneumonia, unspecified organism; I42.9 Cardiomyopathy, unspecified; Z68.42 Body mass index [BMI] 45.0-49.9, adult; R07.81 Pleurodynia; I51.7 Cardiomegaly; E86.0 Dehydration; E11.9 Type 2 diabetes mellitus without complications; I10 Essential (primary) hypertension; I48.91 Unspecified atrial fibrillation; I25.10 Atherosclerotic heart disease of native coronary artery without angina pectoris; G62.9 Polyneuropathy, unspecified; E88.81 Metabolic syndrome and other insulin resistance; M85.80 Other specified disorders of bone density and structure, unspecified site; E66.01 Morbid (severe) obesity due to excess calories; Z79.01 Long term (current) use of anticoagulants; Z79.899 Other long term (current) drug therapy; Z71.3 Dietary counseling and surveillance
CPT/HCPCS: 36415; 80053; 81001; 82550; 82803; 83874; 83880; 84436; 84443; 84484; 85025; 87040; 87070; 87086; 93005; 93010; 94640

== ENCOUNTER 2017-08-16 16:46 | Inpatient (IN) ==
[2017-08-16] MEDS ORDERED: TYLENOL PO PRN (17:33)
[2017-08-16] MEDS ORDERED: NITROSTAT SL PRN (17:33)
[2017-08-16] MEDS ORDERED: VISTARIL INJ IM PRN (17:33)
[2017-08-16] MEDS ORDERED: ATROPINE SULFATE PFS IVP PRN (17:33)
[2017-08-16] MEDS ORDERED: MORPHINE 4 MG/ML VIAL IVP PRN (17:33)
[2017-08-16] MEDS ORDERED: DEXTROSE 5%-1/2NS IV SOLUTION 1,000 ML IV SCH (18:00)
--- NOTE | 2017-08-16 18:23 | DI ---
EXAMINATION: AP chest radiograph. HISTORY: Shortness of breath, asthmatic bronchitis COMPARISON: 10/13/2016 FINDINGS: There are low lung volumes. There is minimal left basilar atelectasis. No focal consolidation, pleura l effusion or pneumothorax is seen. The cardiac silhouette is near the upper limits of normal for size is likely accentuated by technique . There is focal right hilar prominence. IMPRESSION: Minimal left basilar atelectasis. Focal right hilar prominence could represent a pulmonary artery seen on-end. Follow-up PA and lateral views with improved inspiration are recommended to exclude lymphadenopathy or a perihilar nodule.
[2017-08-16 18:47] VITALS: BMI 46.2
[2017-08-16] MEDS: XOPENEX 1.25 MG NEB SCH ×2 (19:08→23:14)
[2017-08-16] MEDS ORDERED: POTASSIUM CHLORIDE 10 MEQ VIAL-ADDITIVE ONLY 40 MEQ in SODIUM CHLORIDE 1,000 ML IV SCH (19:30)
[2017-08-16] MEDS ORDERED: POTASSIUM CHLORIDE 20 MEQ VIAL-ADDITIVE ONLY IV ONE (19:37)
[2017-08-16] MEDS ORDERED: LEVAQUIN 100 ML IV ONE (19:43)
[2017-08-16] MEDS ORDERED: SOLU-CORTEF 250 MG ONE (19:44)
[2017-08-16] MEDS: SOLU-CORTEF 250 MG IVP SCH (19:53)
[2017-08-16] MEDS: LEVAQUIN 500 MG in PREMIX 100 ML D5W 1 BAG IV SCH (19:55)
[2017-08-16] MEDS ORDERED: K-DUR PO STA (19:56)
[2017-08-16] MEDS: TAMIFLU PO SCH (19:59)
[2017-08-16] MEDS ORDERED: K-DUR PO ONE (21:00)
[2017-08-17] MEDS: SOLU-MEDROL 125 MG ONE ×2 (01:00→01:01)
[2017-08-17] MEDS ORDERED: SOLU-CORTEF 250 MG ONE ×2 (01:02→04:06)
[2017-08-17] MEDS: SOLU-CORTEF 250 MG IVP SCH ×5 (01:03→20:04)
[2017-08-17] MEDS: XOPENEX 1.25 MG NEB SCH ×4 (04:57→23:39)
[2017-08-17] MEDS ORDERED: SODIUM CHLORIDE 0.9%-KCL 40MEQ 1,000 ML IV SCH ×2 (07:15→07:54)
[2017-08-17] MEDS: PHENERGAN WITH CODEINE 6.25/10 MG/5 ML PO PRN ×2 (08:21→23:30)
[2017-08-17] MEDS: TAMIFLU PO SCH ×2 (08:21→20:04)
[2017-08-17] MEDS: K-DUR PO SCH ×3 (08:21→20:04)
[2017-08-17] MEDS: LEVAQUIN 500 MG in PREMIX 100 ML D5W 1 BAG IV SCH (08:21)
--- NOTE | 2017-08-17 11:10 | PCM.PROG ---
Attending Provider: ATTENDING PROVIDER: Dr. OANH SULLIVAN This patient is seen with Irina Queen, Nurse Practitioner. DATE OF SERVICE: 08/17/17 SUBJECTIVE: This 77 year old WHITE/ F was hospitalized 08/16/17. The patient is sitting on the side of bed, alert. Shortness of breath is somewhat improved. REVIEW OF SYSTEMS: CONSTITUTIONAL: Fatigue. No night sweats. No fever or chills. HEENT: Eyes: No visual changes. No eye pain. No eye discharge. ENT: No runny nose. No epistaxis. No sinus pain. No odynophagia. No congestion. RESPIRATORY: Cough and wheeze. No hemoptysis. No shortness of breath. CARDIOVASCULAR: No angina symptoms. No CHF symptoms. No atypical chest pain for CAD. No palpitations. No orthopnea.. GASTROINTESTINAL: No abdominal pain. No nausea or vomiting. No diarrhea or constipation. No hematemesis. No hematochezia. GENITOURINARY: No urgency. No frequency. No dysuria. No hematuria. No obstructive symptoms. No discharge. No pain. No significant abnormal bleeding. MUSCULOSKELETAL: No musculoskeletal pain; no joint swelling. NEUROLOGICAL: Awake, alert, oriented to time, place and person. No headache. No neck pain. No syncope. No seizures. No dizziness. PSYCHIATRIC: Not anxious. No depression. No suicidal thoughts. No homicidal thoughts. SKIN: No rash. No lesions. No wounds. ENDOCRINE: No unexplained weight loss. No weight gain. HEMATOLOGIC/LYMPHATIC: No anemia. No purpura. No petechiae. No prolonged or excessive bleeding. No palpable lymph nodes. PHYSICAL EXAMINATION: GENERAL: The patient is awake, alert and oriented, sitting in bed in no distress. VITAL SIGNS: Temperature 98.0 F, Pulse 75, Respiratory Rate 20, BP 114/79, Pulse Ox 96% HEENT: Head normocephalic, atraumatic. Eyes: Extraocular muscles are intact. Pupils are equal, round and reactive to light and accommodation. Ears: No lesions. Nose appeared normal. Throat: No exudate or erythema. NECK: Supple. No JVD, no carotid bruit. No lymphadenopathy or thyromegaly. LUNGS: Diminished breath sounds bilaterally with bilateral rhonchi and expiratory wheeze. Percussion note normal. Chest symmetrical. HEART: S1, S2, no S3. No murmurs. No cyanosis or clubbing. No ascites. Pulses: Dorsalis pedis and posterior tibial pulses +1 to +2 both sides. ABDOMEN: Soft. Non-tender. Bowel sounds active. No CVA tenderness. No mass felt. EXTREMITIES: No edema. Full range of motion of all extremities, equal. NEUROLOGIC: No focal deficit. Cranial nerves II through XII are grossly intact. No headache, no double vision or headache. SKIN: Not dry. Intact. Turgor-normal. LYMPHATIC: No palpable lymph nodes/no lymphedema. MUSCULOSKELETAL: Normal joints with no swelling. Muscle tone is normal. LAB REVIEW: 08/17/17 04:30 08/17/17 04:30 08/17/17 04:30: Sodium 132 L, Potassium 3.4 L, Chloride 92 L, Carbon Dioxide 34 H, Anion Gap 9.4, BUN 12, Creatinine 0.82, Estimated GFR (MDRD) 67.00, BUN/ Creatinine Ratio 14.63, Glucose 195 H D, Calcium 9.4, Total Bilirubin 0.6, AST 73 H, ALT 41, Alkaline Phosphatase 47 L, Total Protein 7.1, Albumin 3.1 L, Globulin 4.0, Albumin/Globulin Ratio 0.78 08/17/17 04:30: WBC 2.10 L, RBC 4.89, Hgb 13.5, Hct 40.1, MCV 82.0, MCH 27.6, MCHC 33.7, RDW Coeff of Melissa 15.2 H, Plt Count 151, Immature Gran % (Auto) 0.5, Neut % (Auto) 82.3, Lymph % (Auto) 12.4, [place] % (Auto) 4.3, Eos % (Auto) 0.0, Baso % (Auto) 0.5, Immature Gran # (Auto) 0.0, Neut # 1.7 L, Lymph # 0.3 L, [place] # 0.1 L, Eos # 0.0, Baso # 0.0 08/16/17 18:10: Urine Color Yellow, Urine Clarity Clear, Urine pH 5.5, Ur Specific [place] <=1.005, Urine Protein Negative, Urine Glucose (UA) Negative, Urine Ketones Negative, Urine Blood Negative, Urine Nitrite Negative, Urine Bilirubin Negative, Urine Urobilinogen 0.2, Ur Leukocyte Esterase Negative 08/16/17 18:10: Influenza A (Rapid) Positive by naat H, Influenza B (Rapid) Negative by naat 08/16/17 17:40: Sodium 128 L, Potassium 2.7 L*, Chloride 83 L, Carbon Dioxide 35 H, Anion Gap 12.7, BUN 13, Creatinine 0.93, Estimated GFR (MDRD) 58.00, BUN/ Creatinine Ratio 13.97, Glucose 130 H, Calcium 9.9, Total Bilirubin 0.9, AST 82 H, ALT 43, Alkaline Phosphatase 51 L, Total Protein 7.2, Albumin 3.3 L, Globulin 3.9, Albumin/Globulin Ratio 0.85 08/16/17 17:40: WBC 3.29 L, RBC 4.98, Hgb 13.8, Hct 40.3, MCV 80.9 L, MCH 27.7, MCHC 34.2, RDW Coeff of Melissa 15.0 H, Plt Count 159, Immature Gran % (Auto) 0.3, Neut % (Auto) 60.8, Lymph % (Auto) 21.9, [place] % (Auto) 16.4 H, Eos % (Auto) 0.0 , Baso % (Auto) 0.6, Immature Gran # (Auto) 0.0, Neut # 2.0, Lymph # 0.7, [place] # 0.5, Eos # 0.0, Baso # 0.0 08/16/17 17:35: TSH 2.903, Free T4 1.09 ASSESSMENT: 1. INFLUENZA A 2. SOB IMPROVING 3. ACUTE BRONCHITIS 4. PLEURITIC PAIN IMPROVING 5. HYPOKALEMIA PLAN: 1. Decrease IV fluids to 50 mL/hr 2. Phenergan with Codeine one tsp q.6hr Plan and coordination of the patient's care discussed in the presence of Ice Cream Scooper and nurse. CONDITION: Stable SCRIBED BY: HASMUKH MCKEON Migratory Worker scribed while in presence of service performed by Dr. Sullivan/Irina Queen APRN on 08/17/17 ([id number])
[2017-08-17] MEDS ORDERED: POTASSIUM CHLORIDE 20 MEQ VIAL-ADDITIVE ONLY IV ONE (12:08)
[2017-08-17] MEDS: SODIUM CHLORIDE IV SCH (12:56)
[2017-08-17] MEDS: ADDITIVE ONLY IV SCH (12:56)
[2017-08-17] MEDS: POTASSIUM CHLORIDE IV SCH (12:56)
[2017-08-18] MEDS ORDERED: POTASSIUM CHLORIDE 10 MEQ VIAL-ADDITIVE ONLY IV ONE (02:43)
[2017-08-18] MEDS: ADDITIVE ONLY IV SCH (02:48)
[2017-08-18] MEDS: POTASSIUM CHLORIDE IV SCH (02:48)
[2017-08-18] MEDS: SODIUM CHLORIDE IV SCH (02:48)
[2017-08-18] MEDS: SOLU-CORTEF 250 MG IVP SCH ×3 (04:23→20:28)
[2017-08-18] MEDS: XOPENEX 1.25 MG NEB SCH ×4 (05:14→22:58)
[2017-08-18] MEDS: TAMIFLU PO SCH ×2 (08:17→20:29)
[2017-08-18] MEDS: LEVAQUIN 500 MG in PREMIX 100 ML D5W 1 BAG IV SCH (08:17)
[2017-08-18] MEDS: K-DUR PO SCH ×3 (08:17→20:29)
[2017-08-18] MEDS ORDERED: SODIUM CHLORIDE 0.9%-KCL 40MEQ 1,000 ML IV SCH (08:30)
[2017-08-18] MEDS ORDERED: ULTRAM PO PRN (09:30)
[2017-08-18] MEDS ORDERED: NON-FORMULARY MEDICATION (Omeprazole Magnesium [Prilosec Otc] 20 MG) PO SCH (09:30)
[2017-08-18] MEDS ORDERED: NON-FORMULARY MEDICATION (Verapamil Hcl [Verapamil Er] 240 MG) PO SCH (09:30)
[2017-08-18] MEDS ORDERED: NON-FORMULARY MEDICATION (Meclizine Hcl [Meclizine Hcl] 25 MG) PO SCH (09:30)
--- NOTE | 2017-08-18 09:51 | PCM.PROG ---
Attending Provider: ATTENDING PROVIDER: Dr. OANH SULLIVAN This patient is seen with Irina Queen, Nurse Practitioner. DATE OF SERVICE: 08/18/17 SUBJECTIVE: This 77 year old WHITE/ F was hospitalized 08/16/17. The patient is sitting in bed, alert. Shortness of breath is slightly improved. She is still wheezing and coughing. She slept better last night. REVIEW OF SYSTEMS: CONSTITUTIONAL: No night sweats. No fatigue, malaise, lethargy. No fever or chills. HEENT: Eyes: No visual changes. No eye pain. No eye discharge. ENT: No runny nose. No epistaxis. No sinus pain. No odynophagia. No congestion. RESPIRATORY: Cough and wheeze. No hemoptysis. Less shortness of breath. CARDIOVASCULAR: No angina symptoms. No CHF symptoms. No atypical chest pain for CAD. No palpitations. No orthopnea.. GASTROINTESTINAL: No abdominal pain. No nausea or vomiting. No diarrhea or constipation. No hematemesis. No hematochezia. GENITOURINARY: No urgency. No frequency. No dysuria. No hematuria. No obstructive symptoms. No discharge. No pain. No significant abnormal bleeding. MUSCULOSKELETAL: No musculoskeletal pain; no joint swelling. NEUROLOGICAL: Awake, alert, oriented to time, place and person. No headache. No neck pain. No syncope. No seizures. No dizziness. PSYCHIATRIC: Not anxious. No depression. No suicidal thoughts. No homicidal thoughts. SKIN: No rash. No lesions. No wounds. ENDOCRINE: No unexplained weight loss. No weight gain. HEMATOLOGIC/LYMPHATIC: No anemia. No purpura. No petechiae. No prolonged or excessive bleeding. No palpable lymph nodes. PHYSICAL EXAMINATION: GENERAL: The patient is awake, alert and oriented, lying/sitting in bed in no distress. VITAL SIGNS: Temperature 97.7 F, Pulse 76, Respiratory Rate 20, BP 133/86, Pulse Ox 95% HEENT: Head normocephalic, atraumatic. Eyes: Extraocular muscles are intact. Pupils are equal, round and reactive to light and accommodation. Ears: No lesions. Nose appeared normal. Throat: No exudate or erythema. NECK: Supple. No JVD, no carotid bruit. No lymphadenopathy or thyromegaly. LUNGS: Bilateral expiratory wheeze and rhonchi. Percussion note normal. Chest symmetrical. HEART: S1, S2, no S3. No murmurs. No cyanosis or clubbing. No ascites. Pulses: Dorsalis pedis and posterior tibial pulses +1 to +2 both sides. ABDOMEN: Soft. Non-tender. Bowel sounds active. No CVA tenderness. No mass felt. EXTREMITIES: No edema. Full range of motion of all extremities, equal. NEUROLOGIC: No focal deficit. Cranial nerves II through XII are grossly intact. No headache, no double vision or headache. SKIN: Not dry. Intact. Turgor-normal. LYMPHATIC: No palpable lymph nodes/no lymphedema. MUSCULOSKELETAL: Normal joints with no swelling. Muscle tone is normal. LAB REVIEW: 08/18/17 04:04 08/18/17 04:04 08/18/17 04:04: Sodium 134 L, Potassium 4.2, Chloride 96 L, Carbon Dioxide 33 H , Anion Gap 9.2, BUN 11, Creatinine 0.83, Estimated GFR (MDRD) 66.00, BUN/ Creatinine Ratio 13.25, Glucose 198 H, Calcium 9.0, Total Bilirubin 0.5, AST 51 H, ALT 37, Alkaline Phosphatase 43 L, Total Protein 6.5, Albumin 3.0 L, Globulin 3.5, Albumin/Globulin Ratio 0.86 08/18/17 04:04: WBC 3.84 L, RBC 4.58, Hgb 12.8, Hct 38.8, MCV 84.7, MCH 27.9, MCHC 33.0, RDW Coeff of Melissa 15.6 H, Plt Count 154, Immature Gran % (Auto) 0.3, Neut % (Auto) 81.0, Lymph % (Auto) 12.2, [place] % (Auto) 6.5, Eos % (Auto) 0.0, Baso % (Auto) 0.0, Immature Gran # (Auto) 0.0, Neut # 3.1, Lymph # 0.5 L, [place] # 0.3 L, Eos # 0.0, Baso # 0.0 ASSESSMENT: 1. INFLUENZA A 2. SOB IMPROVING 3. ACUTE BRONCHITIS 4. PLEURITIC PAIN IMPROVING 5. HYPOKALEMIA PLAN: 1. D/C IV fluids Plan and coordination of the patient's care discussed in the presence of Brick Kiln Worker and nurse. CONDITION: Stable SCRIBED BY: HASMUKH MCKEON Toll Transmission Worker scribed while in presence of service performed by Dr. Sullivan/Irina Queen APRN on 08/18/17 ([id number])
[2017-08-18] MEDS: ELIQUIS PO SCH ×2 (10:31→20:29)
[2017-08-18] MEDS: PRILOSEC PO SCH (10:31)
[2017-08-18] MEDS: CALAN SR PO SCH (10:32)
[2017-08-18] MEDS: HYZAAR 50-12.5 MG TAB PO SCH (10:32)
[2017-08-18] MEDS: ANTIVERT PO SCH ×2 (15:22→20:29)
[2017-08-18] MEDS: PHENERGAN WITH CODEINE 6.25/10 MG/5 ML PO PRN (20:29)
[2017-08-19] MEDS: XOPENEX 1.25 MG NEB SCH ×4 (04:10→23:58)
[2017-08-19] MEDS: PRILOSEC PO SCH (05:32)
[2017-08-19] MEDS: SOLU-CORTEF 250 MG IVP SCH ×3 (05:32→20:29)
[2017-08-19] MEDS: LEVAQUIN 500 MG in PREMIX 100 ML D5W 1 BAG IV SCH (08:06)
[2017-08-19] MEDS: HYZAAR 50-12.5 MG TAB PO SCH (08:10)
[2017-08-19] MEDS: ZAROXOLYN PO SCH (08:10)
[2017-08-19] MEDS: K-DUR PO SCH ×3 (08:12→20:29)
[2017-08-19] MEDS: ANTIVERT PO SCH ×3 (08:13→20:29)
[2017-08-19] MEDS: TAMIFLU PO SCH ×2 (08:13→20:30)
[2017-08-19] MEDS: ELIQUIS PO SCH ×2 (08:13→20:29)
[2017-08-19] MEDS: CALAN SR PO SCH (08:13)
--- NOTE | 2017-08-19 10:19 | PCM.PROG ---
Attending Provider: ATTENDING PROVIDER: Dr. OANH SULLIVAN This patient is seen with Irina Queen, Nurse Practitioner. DATE OF SERVICE: 08/19/17 SUBJECTIVE: This 77 year old WHITE/ F was hospitalized 08/16/17. The patient is alert, sitting on the side of the bed. Shortness of breath and wheezing improving slowly. REVIEW OF SYSTEMS: CONSTITUTIONAL: Positive for weakness. No night sweats. No fever or chills. HEENT: Eyes: No visual changes. No eye pain. No eye discharge. ENT: No runny nose. No epistaxis. No sinus pain. No odynophagia. No congestion. RESPIRATORY: Positive for cough and congestion. No hemoptysis. No shortness of breath. CARDIOVASCULAR: No angina symptoms. No CHF symptoms. No atypical chest pain for CAD. No palpitations. No orthopnea.. GASTROINTESTINAL: No abdominal pain. No nausea or vomiting. No diarrhea or constipation. No hematemesis. No hematochezia. GENITOURINARY: No urgency. No frequency. No dysuria. No hematuria. No obstructive symptoms. No discharge. No pain. No significant abnormal bleeding. MUSCULOSKELETAL: No musculoskeletal pain; no joint swelling. NEUROLOGICAL: Awake, alert, oriented to time, place and person. No headache. No neck pain. No syncope. No seizures. No dizziness. PSYCHIATRIC: Not anxious. No depression. No suicidal thoughts. No homicidal thoughts. SKIN: No rash. No lesions. No wounds. ENDOCRINE: No unexplained weight loss. No weight gain. HEMATOLOGIC/LYMPHATIC: No anemia. No purpura. No petechiae. No prolonged or excessive bleeding. No palpable lymph nodes. PHYSICAL EXAMINATION: GENERAL: The patient is awake, alert and oriented, sitting in bed in no distress. VITAL SIGNS: Temperature 97.7 F, Pulse 92, Respiratory Rate 20, BP 142/88, Pulse Ox 99% HEENT: Head normocephalic, atraumatic. Eyes: Extraocular muscles are intact. Pupils are equal, round and reactive to light and accommodation. Ears: No lesions. Nose appeared normal. Throat: No exudate or erythema. NECK: Supple. No JVD, no carotid bruit. No lymphadenopathy or thyromegaly. LUNGS: Diminished breath sounds bilaterally with wheeze on the left. Percussion note normal. Chest symmetrical. HEART: S1, S2, no S3. No murmurs. No cyanosis or clubbing. No ascites. Pulses: Dorsalis pedis and posterior tibial pulses +1 to +2 both sides. ABDOMEN: Soft. Non-tender. Bowel sounds active. No CVA tenderness. No mass felt. EXTREMITIES: No edema. Full range of motion of all extremities, equal. NEUROLOGIC: No focal deficit. Cranial nerves II through XII are grossly intact. No headache, no double vision or headache. SKIN: Not dry. Intact. Turgor-normal. LYMPHATIC: No palpable lymph nodes/no lymphedema. MUSCULOSKELETAL: Normal joints with no swelling. Muscle tone is normal. LAB REVIEW: 08/19/17 03:58 08/19/17 03:58 08/19/17 03:58: Sodium 135 L, Potassium 4.0, Chloride 95 L, Carbon Dioxide 33 H , Anion Gap 11.0, BUN 13, Creatinine 0.88, Estimated GFR (MDRD) 62.00, BUN/ Creatinine Ratio 14.77, Glucose 239 H, Calcium 9.2, Total Bilirubin 0.5, AST 50 H, ALT 50, Alkaline Phosphatase 44 L, Total Protein 6.6, Albumin 3.1 L, Globulin 3.5, Albumin/Globulin Ratio 0.89 08/19/17 03:58: WBC 5.61, RBC 4.60, Hgb 12.7, Hct 39.4, MCV 85.7, MCH 27.6, MCHC 32.2, RDW Coeff of Melissa 15.9 H, Plt Count 161, Immature Gran % (Auto) 1.1, Neut % (Auto) 83.9, Lymph % (Auto) 10.7, [place] % (Auto) 4.1, Eos % (Auto) 0.0, Baso % (Auto) 0.2, Immature Gran # (Auto) 0.1, Neut # 4.7, Lymph # 0.6, [place] # 0.2 L, Eos # 0.0, Baso # 0.0 ASSESSMENT: 1. INFLUENZA A 2. SHORTNESS OF BREATH IMPROVING 3. ACUTE BRONCHITIS 4. PLEURITIC PAIN IMPROVING 5. HYPOKALEMIA, RESOLVED PLAN: 1. Encouraged to walk 2. Continue IV steroids Plan and coordination of the patient's care discussed in the presence of Clear Coat Sprayer and nurse. CONDITION: Stable SCRIBED BY: HASMUKH MCKEON Lubricating Engineer scribed while in presence of service performed by Dr. Sullivan/Irina Queen APRN on 08/19/17 ([id number])
[2017-08-19] MEDS: PHENERGAN WITH CODEINE 6.25/10 MG/5 ML PO PRN (20:35)
[2017-08-20] MEDS: XOPENEX 1.25 MG NEB SCH ×4 (04:13→23:14)
[2017-08-20] MEDS: PRILOSEC PO SCH (06:20)
[2017-08-20] MEDS: SOLU-CORTEF 250 MG IVP SCH ×3 (06:20→20:43)
[2017-08-20] MEDS: HYZAAR 50-12.5 MG TAB PO SCH (09:15)
[2017-08-20] MEDS: CALAN SR PO SCH (09:15)
[2017-08-20] MEDS: TAMIFLU PO SCH ×2 (09:17→20:28)
[2017-08-20] MEDS: ANTIVERT PO SCH ×3 (09:17→20:28)
[2017-08-20] MEDS: ELIQUIS PO SCH ×2 (09:17→20:26)
[2017-08-20] MEDS: LEVAQUIN 500 MG in PREMIX 100 ML D5W 1 BAG IV SCH (09:17)
[2017-08-20] MEDS: K-DUR PO SCH ×3 (09:17→20:27)
[2017-08-20] MEDS: PHENERGAN WITH CODEINE 6.25/10 MG/5 ML PO PRN (22:07)
[2017-08-21] MEDS: SOLU-CORTEF 250 MG IVP SCH ×3 (04:44→21:07)
[2017-08-21] MEDS: XOPENEX 1.25 MG NEB SCH ×4 (05:22→22:23)
[2017-08-21] MEDS: PRILOSEC PO SCH (05:46)
[2017-08-21] MEDS: ANTIVERT PO SCH ×3 (09:02→21:06)
[2017-08-21] MEDS: CALAN SR PO SCH (09:02)
[2017-08-21] MEDS: LEVAQUIN 500 MG in PREMIX 100 ML D5W 1 BAG IV SCH (09:02)
[2017-08-21] MEDS: ELIQUIS PO SCH ×2 (09:03→21:06)
[2017-08-21] MEDS: K-DUR PO SCH ×3 (09:03→21:06)
[2017-08-21] MEDS: TAMIFLU PO SCH (09:03)
[2017-08-21] MEDS: HYZAAR 50-12.5 MG TAB PO SCH (09:03)
[2017-08-21] MEDS: PHENERGAN WITH CODEINE 6.25/10 MG/5 ML PO PRN (21:07)
[2017-08-22] MEDS: SOLU-CORTEF 250 MG IVP SCH ×2 (04:01→13:09)
[2017-08-22] MEDS: XOPENEX 1.25 MG NEB SCH ×2 (05:22→11:17)
[2017-08-22] MEDS: PRILOSEC PO SCH (05:35)
[2017-08-22] MEDS: HYZAAR 50-12.5 MG TAB PO SCH (08:29)
[2017-08-22] MEDS: CALAN SR PO SCH (08:29)
[2017-08-22] MEDS: K-DUR PO SCH (08:29)
[2017-08-22] MEDS: LEVAQUIN 500 MG in PREMIX 100 ML D5W 1 BAG IV SCH (08:29)
[2017-08-22] MEDS: ELIQUIS PO SCH (08:29)
[2017-08-22] MEDS: ZAROXOLYN PO SCH (08:30)
[2017-08-22] MEDS ORDERED: LEVAQUIN PO SCH (09:00)
--- NOTE | 2017-08-22 09:34 | DI ---
EXAM: Two views of the chest. History: Wheezing and cough, short of breath Comparison: Chest radiograph 08/16/2017 Findings: Heart is borderline enlarged. No focal consolidation. No appreciable pleural fluid and n o pneumothorax. Atherosclerotic vascular calcifications. No acute osseous abnormalities. Impression: Borderline cardiomegaly without acute disease in the chest
--- NOTE | 2017-08-22 09:46 | PCM.PROG ---
Attending Provider: ATTENDING PROVIDER: Dr. OANH SULLIVAN This patient is seen with Irina Queen, Nurse Practitioner. DATE OF SERVICE: 08/22/17 SUBJECTIVE: This 77 year old WHITE/ F was hospitalized 08/16/17. The patient is lying in bed, alert. She is still coughing somewhat with shortness of breath. She has not been and about very much. No fever. REVIEW OF SYSTEMS: CONSTITUTIONAL: No night sweats. No fatigue, malaise, lethargy. No fever or chills. HEENT: Eyes: No visual changes. No eye pain. No eye discharge. ENT: No runny nose. No epistaxis. No sinus pain. No odynophagia. No congestion. RESPIRATORY: Cough and congestion. No hemoptysis. Shortness of breath. CARDIOVASCULAR: No angina symptoms. No CHF symptoms. No atypical chest pain for CAD. No palpitations. No orthopnea.. GASTROINTESTINAL: No abdominal pain. No nausea or vomiting. No diarrhea or constipation. No hematemesis. No hematochezia. GENITOURINARY: No urgency. No frequency. No dysuria. No hematuria. No obstructive symptoms. No discharge. No pain. No significant abnormal bleeding. MUSCULOSKELETAL: No musculoskeletal pain; no joint swelling. NEUROLOGICAL: Awake, alert, oriented to time, place and person. No headache. No neck pain. No syncope. No seizures. No dizziness. PSYCHIATRIC: Not anxious. No depression. No suicidal thoughts. No homicidal thoughts. SKIN: No rash. No lesions. No wounds. ENDOCRINE: No unexplained weight loss. No weight gain. HEMATOLOGIC/LYMPHATIC: No anemia. No purpura. No petechiae. No prolonged or excessive bleeding. No palpable lymph nodes. PHYSICAL EXAMINATION: GENERAL: The patient is awake, alert and oriented, sitting in bed in no distress. VITAL SIGNS: Temperature 98.3 F, Pulse 81, Respiratory Rate 18, BP 141/82, Pulse Ox 99% HEENT: Head normocephalic, atraumatic. Eyes: Extraocular muscles are intact. Pupils are equal, round and reactive to light and accommodation. Ears: No lesions. Nose appeared normal. Throat: No exudate or erythema. NECK: Supple. No JVD, no carotid bruit. No lymphadenopathy or thyromegaly. LUNGS: Bilateral rhonchi. Percussion note normal. Chest symmetrical. HEART: S1, S2, no S3. No murmurs. No cyanosis or clubbing. No ascites. Pulses: Dorsalis pedis and posterior tibial pulses +1 to +2 both sides. ABDOMEN: Soft. Non-tender. Bowel sounds active. No CVA tenderness. No mass felt. EXTREMITIES: No edema. Full range of motion of all extremities, equal. NEUROLOGIC: No focal deficit. Cranial nerves II through XII are grossly intact. No headache, no double vision or headache. SKIN: Not dry. Intact. Turgor-normal. LYMPHATIC: No palpable lymph nodes/no lymphedema. MUSCULOSKELETAL: Normal joints with no swelling. Muscle tone is normal. LAB REVIEW: 08/22/17 05:50 08/22/17 05:50 08/22/17 05:50: Sodium 136, Potassium 3.5, Chloride 89 L, Carbon Dioxide 38 H, Anion Gap 12.5, BUN 17, Creatinine 0.95, Estimated GFR (MDRD) 57.00, BUN/ Creatinine Ratio 17.89, Glucose 244 H, Calcium 9.8, Total Bilirubin 0.9, AST 31 D, ALT 91 H, Alkaline Phosphatase 52 L, Total Protein 6.8, Albumin 3.3 L, Globulin 3.5, Albumin/Globulin Ratio 0.94 08/22/17 05:50: WBC 5.70, RBC 4.91, Hgb 13.7, Hct 40.9, MCV 83.3, MCH 27.9, MCHC 33.5, RDW Coeff of Melissa 15.2 H, Plt Count 156, Immature Gran % (Auto) 0.9, Neut % (Auto) 77.7, Lymph % (Auto) 16.1, [place] % (Auto) 5.1, Eos % (Auto) 0.0, Baso % (Auto) 0.2, Immature Gran # (Auto) 0.1, Neut # 4.4, Lymph # 0.9, [place] # 0.3 L, Eos # 0.0, Baso # 0.0 ASSESSMENT: 1. INFLUENZA A 2. SHORTNESS OF BREATH IMPROVING 3. ACUTE BRONCHITIS 4. PLEURITIC PAIN IMPROVING 5. HYPOKALEMIA, RESOLVED PLAN: 1. Continue IV steroids 2. Encouraged to get up and about and walk 3. Repeat chest x-ray Plan and coordination of the patient's care discussed in the presence of Corner Cutter Machine Operator and nurse. CONDITION: Stable SCRIBED BY: HASMUKH MCKEON Political Science Instructor scribed while in presence of service performed by Dr. Sullivan/Irina Queen APRN on 08/22/17 ([id number])
[2017-08-22 10:46] VITALS: BP 142/91; TEMP 97.5
[2017-08-22] MEDS: ANTIVERT PO SCH (10:55)
--- NOTE | 2017-08-22 12:58 | CM.DICTOOL ---
ADMISSION: 08/16/17 16:46 DISCHARGE: 08/22/17 DATE OF SERVICE: 08/22/17 FINAL DIAGNOSIS INFLUENZA A ACUTE BRONCHITIS PLEURITIC PAIN, RESOLVED HYPOKALEMIA, RESOLVED CAD ATRIAL FIBRILLATION (ELIQUIS) CHF BY HISTORY BRONCHIAL ASTHMA HYPERTENSION (LEFT VENTRICULAR HYPERTROPHY) DM, TYPE 2 NEUROPATHY METABOLIC SYNDROME OSTEOPENIA BILATERAL TOTAL KNEE REPLACEMENTS CHOLECYSTECTOMY HYSTERECTOMY ECHO 10/18/16 LVH (MODERATE) AND ENLARGED LEFT ATRIAL CAVITY (5.5 CM) STIFF LEFT VENTRICLE WITH LEFT VENTRICULAR EJECTION FRACTION 50% NORMAL VALVES LEFT VENTRICLE SIZE IS 5.5 CM LAST VITALS Temp Pulse Resp BP Pulse Ox 97.5 F L 78 20 142/91 H 95 08/22/17 10:00 08/22/17 10:00 08/22/17 10:00 08/22/17 10:00 08/22/17 10:00 ACTIVE HOME MEDICATIONS Acetaminophen (Tylenol) 650 mg PO Q4H PRN PRN Reason: Headache Apixaban (Eliquis) 5 mg PO BID [facility] Last Admin: 08/22/17 08:29 Dose: 5 mg HCTZ/Losartan Potassium (Hyzaar 50-12.5 Mg Tab) 0.5 tab PO DAILY [facility] Last Admin: 08/22/17 08:29 Dose: 0.5 tab Meclizine HCl (Antivert) 25 mg PO TID [facility] Last Admin: 08/22/17 10:55 Dose: 25 mg Metolazone (Zaroxolyn) 2.5 mg PO MOWEFR [facility] Last Admin: 08/22/17 08:30 Dose: 2.5 mg Omeprazole (Prilosec) 20 mg PO QDAC [facility] Last Admin: 08/22/17 05:35 Dose: 20 mg Tramadol HCl (Ultram) 50 mg PO TID PRN PRN Reason: pain Verapamil HCl (Calan Sr) 240 mg PO DAILYWM [facility] Last Admin: 08/22/17 08:29 Dose: 240 mg ALLERGIES Penicillins Adverse Reaction (Intermediate, Verified 10/13/16 13:56) Unknown COLLEEN Inhibitors Adverse Reaction (Verified 10/13/16 13:56) Cough dexamethasone [From Decadron] Adverse Reaction (Verified 10/13/16 13:56) Unknown erythromycin base Adverse Reaction (Verified 10/13/16 13:56) Unknown loratadine [From Claritin] Adverse Reaction (Verified 10/13/16 13:56) Unknown lorazepam [From Ativan] Adverse Reaction (Verified 10/13/16 13:56) Unknown olmesartan medoxomil [From Benicar] Adverse Reaction (Verified 10/13/16 13:56) Unknown NEW PRESCRIPTIONS: PROAIR INHALER, TAKE TWO PUFFS THREE TIMES DAILY LEVAQUIN 500 MG, TAKE ONE TABLET BY MOUTH DAILY FOR 5 DAYS PREDNISONE 10 MG, TAKE TWO TABS (20 MG) BY MOUTH TWICE DAILY FOR 3 DAYS, THEN PREDNISONE 10 MG, TAKE ONE TABLET (10 MG) BY MOUTH TWICE DAILY FOR 4 DAYS TAKE THIS MEDICATION WITH FOOD SMOKING: FORMER SMOKER NONE SINCE 1975 DISEASE SPECIFIC EDUCATION: INFLUENZA AND PREVENTION OF SPREAD BRONCHITIS PLEURITIC TYPE PAIN HOME MEDICATIONS NEW PRESCRIPTIONS EFFECTS OF DETENTION STEROID USE FOLLOW UP LAB REVIEW: 08/22/17 05:50 08/22/17 05:50 08/22/17 05:50: Sodium 136, Potassium 3.5, Chloride 89 L, Carbon Dioxide 38 H, Anion Gap 12.5, BUN 17, Creatinine 0.95, Estimated GFR (MDRD) 57.00, BUN/ Creatinine Ratio 17.89, Glucose 244 H, Calcium 9.8, Total Bilirubin 0.9, AST 31 D, ALT 91 H, Alkaline Phosphatase 52 L, Total Protein 6.8, Albumin 3.3 L, Globulin 3.5, Albumin/Globulin Ratio 0.94 08/22/17 05:50: WBC 5.70, RBC 4.91, Hgb 13.7, Hct 40.9, MCV 83.3, MCH 27.9, MCHC 33.5, RDW Coeff of Melissa 15.2 H, Plt Count 156, Immature Gran % (Auto) 0.9, Neut % (Auto) 77.7, Lymph % (Auto) 16.1, Crosby % (Auto) 5.1, Eos % (Auto) 0.0, Baso % (Auto) 0.2, Immature Gran # (Auto) 0.1, Neut # 4.4, Lymph # 0.9, Crosby # 0.3 L, Eos # 0.0, Baso # 0.0 PLAN: DISCHARGE HOME TODAY RETURN TO SEE DR. SULLIVAN IN HIS OFFICE FOR FOLLOW UP ON 08/30/17 AT 1:45 P.M. RESUME YOUR HOME MEDICATIONS PER LIST PROVIDED BY THE NURSING STAFF NEW PRESCRIPTIONS PROAIR INHALER, TAKE TWO PUFFS THREE TIMES DAILY LEVAQUIN 500 MG, TAKE ONE TABLET BY MOUTH DAILY FOR 5 DAYS PREDNISONE 10 MG, TAKE TWO TABS (20 MG) BY MOUTH TWICE DAILY FOR 3 DAYS, THEN PREDNISONE 10 MG, TAKE ONE TABLET (10 MG) BY MOUTH TWICE DAILY FOR 4 DAYS TAKE THIS MEDICATION WITH FOOD ACTIVITY GET PLENTY OF REST AT HOME. GRADUALLY INCREASE YOUR ACTIVITY LEVEL ACCORDING TO YOUR TOLERATION DIET HEALTHY HEART SUMMARY THE PATIENT IS ALERT AND ORIENTED X3. SHE CURRENTLY RESIDES AT HOME ALONE. SHE IS INDEPENDENT WITH ADL'S. HOWEVER, HER DAUGHTER IS SUPPORTIVE OF HER NEEDS WHEN NECESSARY. SHE DESIRES TO RETURN HOME AT DISCHARGE. SHE HAS A SHOWER CHAIR AND CANE AT HOME AVAILABLE FOR USE. SHE DOES NOT REQUIRE HOME HEALTH OR HOMEMAKING SERVICES. THE SKIN TURGOR IS INTACT AND WITHOUT DECUBITUS ULCERS. HYDRATION AND NUTRITIONAL STATUS ARE BOTH VERY GOOD. MS. IRENE IS AFEBRILE AND PAIN FREE. SHE IS AWARE AND AGREEABLE FOR TODAY'S DISCHARGE PLANS. CURRENT CODE STATUS FULL CODE SUSAN LOPEZ APRN OANH SULLIVAN M.D.
--- NOTE | 2017-08-22 15:23 | PN ---
DATE OF SERVICE: 08/19/17 SUBJECTIVE: The patient was seen and examined with the Nurse Practitioner. She hospitalized with influenza. She is getting strength. Appetite is improving. PHYSICAL EXAMINATION: GENERAL: The patient is , lying/sitting in bed in no distress. VITAL SIGNS: HEENT: Head normocephalic, atraumatic. Eyes: Extraocular muscles are intact. Pupils are equal, round and reactive to light and accommodation. Ears: No lesions. Nose appeared normal. Throat: No exudate or erythema. NECK: Supple. No JVD, no carotid bruit. No lymphadenopathy or thyromegaly. LUNGS: Still has mild wheezing but more air entry. Clear to auscultation. Percussion note normal. Chest symmetrical. HEART: S1, S2, no S3. No murmurs. No cyanosis or clubbing. No ascites. Pulses: Dorsalis pedis and posterior tibial pulses +1 to +2 both sides. ABDOMEN: Soft. Nontender. Bowel sounds active. No CVA tenderness. No mass felt. EXTREMITIES: No edema. Full range of motion of all extremities, equal. NEUROLOGIC: No focal deficit. Cranial nerves II through XII are grossly intact. No headache, no double vision or headache. SKIN: Not dry. Intact. Turgor - normal. LYMPHATIC: No palpable lymph nodes/no lymphedema. MUSCULOSKELETAL: Normal joints with no swelling. Muscle tone is normal. PLAN: 1. Continue NEBS, steroids and antibiotics The patient was seen and examined with Nurse Practitioner. TIME SPENT: More than 30 minutes. Plan and coordination of the patient's care discussed in the presence of nurse. WOOD
--- NOTE | 2017-08-23 07:50 | PN ---
DATE OF SERVICE: 08/18/17 SUBJECTIVE: The patient was seen and examined with the Nurse Practitioner. The patient's condition has slowly improved. Her bronchitis still persists and she still has mild wheezing audible without stethoscope but hydration status is improved. PHYSICAL EXAMINATION: HEENT: Head normocephalic, atraumatic. Eyes: Extraocular muscles are intact. Pupils are equal, round and reactive to light and accommodation. Ears: No lesions. Nose appeared normal. Throat: No exudate or erythema. NECK: Supple. No JVD, no carotid bruit. No lymphadenopathy or thyromegaly. LUNGS: Decreased breath sounds but good air entry. Percussion note normal. Chest symmetrical. HEART: S1, S2, no S3. No murmurs. No cyanosis or clubbing. No ascites. Pulses: Dorsalis pedis and posterior tibial pulses +1 to +2 both sides. ABDOMEN: Soft. Nontender. Bowel sounds active. No CVA tenderness. No mass felt. EXTREMITIES: No edema. Full range of motion of all extremities, equal. NEUROLOGIC: No focal deficit. Cranial nerves II through XII are grossly intact. No headache, no double vision or headache. SKIN: Not dry. Intact. Turgor - normal. LYMPHATIC: No palpable lymph nodes/no lymphedema. MUSCULOSKELETAL: Normal joints with no swelling. Muscle tone is normal. PLAN: 1. The patient will be continued on IV antibiotics, NEBS treatment TIME SPENT: More than 30 minutes. Plan and coordination of the patient's care discussed in the presence of nurse. WOOD
--- NOTE | 2017-08-23 11:03 | PN ---
DATE OF SERVICE: 08/21/17 SUBJECTIVE: 77 year old white female hospitalized with positive influenza A with acute pneumonitis with acute bronchial asthma with pleuritic pain. The patient for the first time is feeling a lot better. REVIEW OF SYSTEMS: CONSTITUTIONAL: No night sweats. No fatigue, malaise, lethargy. No fever or chills. HEENT: Eyes: No visual changes. No eye pain. No eye discharge. ENT: No runny nose. No epistaxis. No sinus pain. No sore throat. No odynophagia. No congestion. RESPIRATORY: No cough, no congestion. No hemoptysis. No shortness of breath. CARDIOVASCULAR: No angina symptoms. No CHF symptoms. No atypical chest pain for CAD. No palpitations. No orthopnea. GASTROINTESTINAL: No abdominal pain. No nausea or vomiting. No diarrhea or constipation. No hematemesis. No hematochezia. Appetite has definitely improved. GENITOURINARY: No urgency. No frequency. No dysuria. No hematuria. No obstructive symptoms. No discharge. No pain. No significant abnormal bleeding. MUSCULOSKELETAL: No musculoskeletal pain; no joint swelling. NEUROLOGICAL: No headache. No neck pain. No syncope. No seizures. No dizziness. PSYCHIATRIC: Not anxious. No depression. No suicidal thoughts. No homicidal thoughts. SKIN: No rash. No lesions. No wounds. ENDOCRINE: No unexplained weight loss. No weight gain. HEMATOLOGIC/LYMPHATIC: No anemia. No purpura. No petechiae. No prolonged or excessive bleeding. No palpable lymph nodes. PHYSICAL EXAMINATION: HEENT: Head normocephalic, atraumatic. Eyes: Extraocular muscles are intact. Pupils are equal, round and reactive to light and accommodation. Ears: No lesions. Nose appeared normal. Throat: No exudate or erythema. NECK: Supple. No JVP, no carotid bruit. No lymphadenopathy or thyromegaly. LUNGS: Decreased breath sounds but good air entry with mild wheeze. Percussion note normal. Chest symmetrical. HEART: S1, S2, no S3. No murmurs. No cyanosis or clubbing. No ascites. Pulses: Dorsalis pedis and posterior tibial pulses +1 to +2 both sides. ABDOMEN: Soft. Nontender. Bowel sounds active. No CVA tenderness. No mass felt. EXTREMITIES: No edema. Full range of motion of all extremities, equal. NEUROLOGIC: No focal deficit. Cranial nerves II through XII are grossly intact. No headache, no double vision or headache. SKIN: Not dry. Intact. Turgor - normal. Hydration status has improved. LYMPHATIC: No palpable lymph nodes/no lymphedema. MUSCULOSKELETAL: Normal joints with no swelling. Muscle tone is normal. ASSESSMENT: 1. Pneumonitis/Bronchitis, under control 2. Influenza under control PLAN: 1. Discharge the patient home if the patient condition stays the same 2. The patient needs to continue on steroids, NEBS treatment and antibiotics. TIME SPENT: More than 30 minutes. Plan and coordination of the patient's care discussed in the presence of nurse. WOOD
--- NOTE | 2017-08-25 08:39 | PN ---
DATE OF SERVICE: 08/20/17 SUBJECTIVE: 77 year old white female hospitalized with acute bronchitis, pneumonitis with influenza positive. The patient's condition has slowly improved. She has bronchial asthma and that is why it has taken a long time for her to show some improvement. The patient is being treated with steroids, antibiotics and NEBS treatments. The patient is morbidly obese with BMI of 46 and she has restrictive lung disease on top of bronchial asthma. She was explained about and advised to lose weight. She was also advised to join Pulmonary Rehab. She is thinking about it. REVIEW OF SYSTEMS: CONSTITUTIONAL: No night sweats. Fatigue. No fever or chills. HEENT: Eyes: No visual changes. No eye pain. No eye discharge. ENT: No runny nose. No epistaxis. No sinus pain. No sore throat. No odynophagia. No congestion. RESPIRATORY: Cough, congestion. No hemoptysis. Shortness of breath. CARDIOVASCULAR: No angina symptoms. No CHF symptoms. No atypical chest pain for CAD. No palpitations. No orthopnea. GASTROINTESTINAL: No abdominal pain. No nausea or vomiting. No diarrhea or constipation. No hematemesis. No hematochezia. GENITOURINARY: No urgency. No frequency. No dysuria. No hematuria. No obstructive symptoms. No discharge. No pain. No significant abnormal bleeding. MUSCULOSKELETAL: No musculoskeletal pain; no joint swelling. NEUROLOGICAL: No headache. No neck pain. No syncope. No seizures. No dizziness. PSYCHIATRIC: Not anxious. No depression. No suicidal thoughts. No homicidal thoughts. SKIN: No rash. No lesions. No wounds. ENDOCRINE: No unexplained weight loss. No weight gain. HEMATOLOGIC/LYMPHATIC: No anemia. No purpura. No petechiae. No prolonged or excessive bleeding. No palpable lymph nodes. PHYSICAL EXAMINATION: GENERAL: The patient is oriented to time, place and person. VITAL SIGNS: Temperature 97, pulse 68, respiratory rate 20, blood pressure 129/ 87, pulse ox 98%. HEENT: Head normocephalic, atraumatic. Eyes: Extraocular muscles are intact. Pupils are equal, round and reactive to light and accommodation. Ears: No lesions. Nose appeared normal. Throat: No exudate or erythema. NECK: Supple. No JVD, no carotid bruit. No lymphadenopathy or thyromegaly. LUNGS: Decreased breath sounds, but clear. Percussion note normal. Chest symmetrical. HEART: S1, S2, no S3. No murmurs. No cyanosis or clubbing. No ascites. Pulses: Dorsalis pedis and posterior tibial pulses +1 to +2 both sides. ABDOMEN: Soft. Nontender. Bowel sounds active. No CVA tenderness. No mass felt. EXTREMITIES: No edema. Full range of motion of all extremities, equal. NEUROLOGIC: No focal deficit. Cranial nerves II through XII are grossly intact. No headache, no double vision or headache. SKIN: Not dry. Intact. Turgor - normal. LYMPHATIC: No palpable lymph nodes/no lymphedema. MUSCULOSKELETAL: Normal joints with no swelling. Muscle tone is normal. LABS: Hemoglobin 12.9, hematocrit 39, WBC 4,600 with normal differential. Creatinine 0.8, BUN 13, potassium 3.2. ASSESSMENT: 1. ACUTE BRONCHITIS, PNEUMONITIS AND INFLUENZA 2. BRONCHIAL ASTHMA 3. MORBID OBESITY 4. DIABETES MELLITUS ALL UNDER CONTROL. PLAN: 1. Continue steroids, NEBS treatments and antibiotics. 2. Advised to lose weight. CONDITION: Stable. TIME SPENT: More than 30 minutes. Plan and coordination of the patient's care discussed in the presence of nurse. WOOD
--- NOTE | 2017-08-25 08:44 | PN ---
DATE OF SERVICE: 08/22/17 SUBJECTIVE: The patient was seen and examined with the nurse practitioner. 77 year old white female hospitalized with acute pneumonitis, pleuritic pain, asthmatic bronchitis. The patient's condition slowly has improved to the point where she is up and about and feeling better. She has no PND, no orthopnea. Mild cough. The patient will be discharged home on steroids and antibiotics. CONDITION: Stable. WOOD
--- NOTE | 2017-08-25 08:46 | PN ---
BILLING 08/16/17 LEVEL 5 08/17/17 INTERMEDIATE 08/18/17 INTERMEDIATE 08/19/17 INTERMEDIATE 08/20/17 INTERMEDIATE 08/21/17 BRIEF 08/22/17 D MTDD
--- NOTE | 2017-09-04 15:27 | PN ---
DATE OF SERVICE: 08/17/17 SUBJECTIVE: 77-year-old white female hospitalized with acute pneumonitis, bronchitis, pleuritic pain. The patient has influenza A positive. Condition has improved some. She is mildly hypokalemic and hyponatremic. PHYSICAL EXAMINATION: HEENT: Head normocephalic, atraumatic. Eyes: Extraocular muscles are intact. Pupils are equal, round and reactive to light and accommodation. Ears: No lesions. Nose appeared normal. Throat: No exudate or erythema. NECK: Supple. No JVD, no carotid bruit. No lymphadenopathy or thyromegaly. LUNGS: Decreased breath sounds with mild wheeze. Percussion note normal. Chest symmetrical. HEART: S1, S2, no S3. No murmurs. No cyanosis or clubbing. No ascites. Pulses: Dorsalis pedis and posterior tibial pulses +1 to +2 both sides. ABDOMEN: Soft. Nontender. Bowel sounds active. No CVA tenderness. No mass felt. EXTREMITIES: No edema. Full range of motion of all extremities, equal. NEUROLOGIC: No focal deficit. Cranial nerves II through XII are grossly intact. No headache, no double vision or headache. SKIN: Not dry. Intact. Turgor - normal. LYMPHATIC: No palpable lymph nodes/no lymphedema. MUSCULOSKELETAL: Normal joints with no swelling. Muscle tone is normal. ASSESSMENT: The patient's condition is improving with steroids, antibiotics and nebs. The patient was seen and examined with nurse practitioner. TIME SPENT: More than 30 minutes. Plan and coordination of the patient's care discussed in the presence of nurse. WOOD
--- NOTE | 2017-09-08 11:32 | DS ---
DATE OF SERVICE: 08/22/17 FINAL DIAGNOSIS: 1. INFLUENZA A 2. ACUTE BRONCHITIS 3. PLEURITIC PAIN, RESOLVED 4. HYPOKALEMIA, RESOLVED 5. BRONCHIAL ASTHMA 6. CAD 7. ATRIAL FIBRILLATION (ELIQUIS) 8. CHF BY HISTORY 9. HYPERTENSION (LEFT VENTRICULAR HYPERTROPHY) 10. DIABETES MELLITUS TYPE 2 11. NEUROPATHY 12. METABOLIC SYNDROME 13. OSTEOPENIA 14. BILATERAL TOTAL KNEE REPLACEMENTS 15. CHOLECYSTECTOMY 16. HYSTERECTOMY 17. ECHO 10/18/16 18. LVH (MODERATE) AND ENLARGED LEFT ATRIAL CAVITY (5.5 CM) 19. STIFF LEFT VENTRICLE WITH LEFT VENTRICULAR EJECTION FRACTION 50% 20. NORMAL VALVES 21. LEFT VENTRICLE SIZE IS 5.5 CM LAST V/S: Temperature 97.5, pulse 78, respiratory rate 20, BP 142/91, pulse ox 95 DISCHARGE INSTRUCTIONS: Followup appointment: Return to see Dr. Rose in his office for followup on at 1:45 p.m. MEDICATIONS AT DISCHARGE: Tylenol 650 mg p.o. q.4h p.r.n. Eliquis 5 mg p.o. b.i.d. LAZARO Losartan 0.5 p.o. daily LAZARO Meclizine 25 mg p.o. t.i.d. LAZARO Metolazone 2.5 mg p.o. MoWeFr LAZARO Prilosec 20 mg p.o. q.d a.c. LAZARO Ultram 50 mg p.o. t.i.d. p.r.n. Calan SR 240 mg p.o. daily with meal, [facility] NEW PRESCRIPTIONS: ProAir take two puffs three times daily Levaquin 500 mg take one tablet by mouth daily for 5 days Prednisone 10 mg take two tabs (20 mg) by mouth twice daily for 3 days, then Prednisone 10 mg take one tablet (10 mg) by mouth twice daily for 4 days. Take this medication with food. DIET INSTRUCTIONS: Healthy Heart ACTIVITY: Get plenty of rest at home. Gradually increase your activity level according to your toleration. SMOKING: Former smoker, none since 1975 DISEASE SPECIFIC EDUCATION: Influenza an prevention of spread Bronchitis Pleuritic type pain Home medications New prescriptions Effects of extermination inspector steroid use Followup HOSPITAL COURSE: This is a 77-year-old white female who presented to our office with cough, fever , extreme shortness of breath and weakness. She was subsequently admitted to the hospital, tested positive for Influenza A. Chest x-ray revealed acute bronchitis.l She was experiencing pain with coughing, inspiration and expiration when she was in our office. She has a history of atrial fibrillation and CHF. She was admitted, placed on IV fluids, D5 1/2 NS at 50 cc/hr. Due to extreme wheezing she was placed on Solu-Medrol 125 mg IV q.8hr, started on Tamiflu 75 mg p.o. b.i.d. She was placed on IV Levaquin 500 mg IV daily due to allergies. Over the course of several days, she was extremely wheezy on admission, started on neb treatment, Xopenex q.6hr scheduled. Her wheezing has improved slightly. A repeat chest x-ray was done today. We will send her home on Levaquin 500 mg daily for the next 5 days along with a tapering dose of Prednisone 10 mg two tablets by mouth twice daily for three days and then 10 mg one tablet twice daily for four days. We will also give her a ProAir inhaler take two puffs t.i.d. Her vital signs have been good. Temperature 97.5, heart rate 78, respirations 20, BP 140/85, pulse ox 95% with oxygen at 2L. She has oxygen at home as needed. She has been up and about walking around in her room eating 75 to 100% of her meals. She has been afebrile. Labs are stable. Hemoglobin 13.7, hematocrit 40.9, white count 5.7, sodium 136, potassium 3.5, BUN 17, creatinine 0.95, glucose 244, platelets 156. We will discharge her today in stable condition, instruct her to stay home, continue with increased fluids and rest. She does not need to be around, out and about in public and we will followup with her later this week in the office. TIME SPENT: More than 60 minutes. WOOD
--- NOTE | 2017-09-08 13:03 | HP ---
DATE OF SERVICE: 08/16/17 HISTORY OF PRESENT ILLNESS: This 77-year-old female presented to our office with coughing times one to two weeks, wheezing, low grade temperature, confused - started this weekend and poor appetite. PAST MEDICAL HISTORY: HISTORY OF ASTHMA DIABETES MELLITUS, A1C 7.5 ON 07/01 CAD CHF ATRIAL FIBRILLATION ON ELIQUIS NEUROPATHY CARDIOMYOPATHY BILATERAL TKR METABOLIC SYNDROME VITAMIN D. DEFICIENCY OSTEOPENIA COPD/ASTHMA PAST SURGICAL HISTORY: Tubal 1969 Hysterectomy 1999 Gallbladder Appendectomy 1947 REVIEW OF SYSTEMS: CONSTITUTIONAL: Fever and fatigue. No night sweats. No malaise, lethargy. No chills. HEENT: Eyes: No visual changes. No eye pain. No eye discharge. ENT: Sinus drainage. No epistaxis. No sinus pain. No sore throat. No odynophagia. No ear pain. No congestion. RESPIRATORY: Cough and congestion. Shortness of breath. No hemoptysis. CARDIOVASCULAR: No angina symptoms. No CHF symptoms. Atypical chest pain for CAD. No palpitations. No orthopnea. GASTROINTESTINAL: No abdominal pain. No nausea or vomiting. No diarrhea or constipation. No hematemesis. No hematochezia. GENITOURINARY: No urgency. No frequency. No dysuria. No hematuria. No obstructive symptoms. No discharge. No pain. No significant abnormal bleeding. MUSCULOSKELETAL: Osteoarthritis pain. NEUROLOGICAL: No headache. No neck pain. No syncope. No seizures. No dizziness. Gait: Cane. PSYCHIATRIC: Anxious. No depression. No suicidal thoughts. No homicidal thoughts. SKIN: No rash. No lesions. No wounds. ENDOCRINE: Weight loss of 2 lbs. HEMATOLOGIC/LYMPHATIC: No anemia. No purpura. No petechiae. No prolonged or excessive bleeding. No palpable lymph nodes. PERSONAL/FAMILY/SOCIAL HISTORY: The patient is nonsmoker. No alcohol use. She is , 8 years. Children one girl, three boys. Retired. MEDICATIONS: Prilosec OTC 20 mg once daily Metolazone 2.5 mg tablet one p.o. three times per week Hyzaar 50-12.5 mg 1/2 tablet p.o. one time per day ALLERGIES: PENICILLIN, E-MYCIN, BENICAR, ATIVAN, CLARITIN PHYSICAL EXAMINATION: VITAL SIGNS: Pulse 100, BP 132/80, temperature 97.5, 02 SAT 94%. Height 5'5", BMI 46, Weight 279.6. GENERAL: Oriented times three. Pale, clammy. HEENT: Head normocephalic, atraumatic. Eyes: Extraocular muscles are intact. Pupils are equal, round and reactive to light and accommodation. Ears: No lesions. Nose - thick green drainage. Throat: No exudate or erythema. NECK: Supple. No JVD, no carotid bruit. No lymphadenopathy or thyromegaly. LUNGS: Decreased breath sounds, bilateral rhonchi, bilateral wheezing. Percussion note normal. Chest symmetrical. HEART: S1, S2, no S3. No murmurs. No cyanosis or clubbing. No ascites. Pulses: Dorsalis pedis and posterior tibial pulses +1 to +2 both sides. ABDOMEN: Soft. Nontender. Bowel sounds active. No CVA tenderness. No mass felt. EXTREMITIES: No edema. Full range of motion of all extremities, equal. NEUROLOGIC: No focal deficit. Cranial nerves II through XII are grossly intact. No headache, no double vision or headache. SKIN: Warm and dry. Intact. Turgor - normal. LYMPHATIC: No palpable lymph nodes/no lymphedema. MUSCULOSKELETAL: Normal joints with no swelling. Muscle tone is normal. RECTAL/PELVIC: Colonoscopy - refused repeat. Pelvic: Hysterectomy. Mammogram 2007 refused repeat. ASSESSMENT: 1. ACUTE PNEUMONITIS 2. SHORTNESS OF BREATH 3. PLEURITIC PAIN- BILATERALLY 4. HISTORY OF ASTHMA 5. DIABETES MELLITUS, A1C 7.5 ON 07/01 6. CAD 7. CHF 8. HYPERTENSION/LVH - EF 50% 9. ATRIAL FIBRILLATION ON ELIQUIS 10. NEUROPATHY 11. CARDIOMYOPATHY 12. BILATERAL TKR 13. METABOLIC SYNDROME 14. VITAMIN D. DEFICIENCY 15. OSTEOPENIA 16. COPD/ASTHMA PLAN: 1. Admit with routine telemetry orders 2. Chest x-ray 3. Sputum Culture 4. Levaquin 500 mg IV daily 5. Solu-Cortef 125 mg IV q.8hr and one dose now 6. Xopenex nebs 1.25 q.6h scheduled 7. D5 1/2 NS @ 75 cc/hr 8. Urinalysis 9. CBC/CMP daily 10. Continue home medications 11. Rapid flu A & B 12. T4 and TSH TIME SPENT: More than 70 minutes. MTDD
== END 2017-08-22 14:35 | disposition home or self-care (01) | DRG 195 ==
LOC: MEDSURG B 16:46
PROVIDERS: ADMIT Internal Medicine; ATTEND Internal Medicine
DX: J10.1 Influenza due to other identified influenza virus with other respiratory manifestations (principal); J20.9 Acute bronchitis, unspecified; J45.909 Unspecified asthma, uncomplicated; R06.02 Shortness of breath; E87.6 Hypokalemia; I48.91 Unspecified atrial fibrillation; I51.7 Cardiomegaly; I51.89 Other ill-defined heart diseases; I10 Essential (primary) hypertension; E11.9 Type 2 diabetes mellitus without complications; E66.01 Morbid (severe) obesity due to excess calories; I25.10 Atherosclerotic heart disease of native coronary artery without angina pectoris; G62.9 Polyneuropathy, unspecified; E88.81 Metabolic syndrome and other insulin resistance; M85.80 Other specified disorders of bone density and structure, unspecified site; Z79.01 Long term (current) use of anticoagulants; Z79.899 Other long term (current) drug therapy; Z86.79 Personal history of other diseases of the circulatory system
CPT/HCPCS: 36415; 80053; 81001; 84439; 84443; 85025; 87502; 93005; 93010; 94640

== ENCOUNTER 2017-12-24 21:43 | Inpatient (IN) | payer OTHER ==
[2017-12-24] MEDS ORDERED: DUONEB NEB STA (21:45)
[2017-12-24] MEDS ORDERED: LASIX IVP STA (21:45)
--- NOTE | 2017-12-24 22:35 | CT ---
EXAM: CT scan brain without contrast HISTORY: Dizziness COMPARISON: None. FINDINGS: Contiguous axial images were obtained from the skull base to the convexities without contr ast utilizing 5-mm collimation. Sagittal and coronal reconstructions were imaged and reviewed.. The ventricles and CSF spaces are prominent compared with age appropriate atrophy. There is periventric ular hypodensity noted compatible with chronic microvascular disease. Atherosclerotic changes are se en involving the cavernous internal carotid arteries. The visualized paranasal sinuses and mastoid a ir cells are clear. IMPRESSION: Age appropriate atrophy with chronic microvascular disease. ASVD.
--- NOTE | 2017-12-24 22:37 | CT ---
EXAM: CT scan thorax without contrast HISTORY: Shortness of breath COMPARISON: None. FINDINGS: Contiguous axial images obtained through the thorax without contrast utilizing 5-mm collim ation. Sagittal and coronal reconstructions were imaged and reviewed.. The thoracic inlet is unrema rkable. There are subcentimeter prevascular and pretracheal lymph nodes. The heart is mildly enlarg ed without pericardial effusion. Calcified lymph nodes are seen in the subcarinal region and left hi lum. The ascending aorta is ectatic measuring 3.6 cm. There is minimal dependent atelectasis at the lung bases. There is no evidence of infiltrate or effusion. There is fatty infiltration of the bernard er. There has been prior cholecystectomy.. Degenerative changes noted throughout the thoracic spine . IMPRESSION: Mild cardiomegaly without pericardial effusion. Minimal bibasilar atelectasis. Benign granulomatous changes Fatty liver
--- NOTE | 2017-12-24 23:07 | ED.PDOC ---
General ED Provider: Dr. EVELYN ARCHIBALD Chief Complaint: Dizziness Stated Complaint: Patient is broght by EMT, she fell at home was not able to get up, says she is been dizz, not able walk good, short of breath Gained weight , legs swollen. Time Seen by Physician: 23:05 Mode of Arrival: Ambulance Information Source: Patient, Family Primary Care Provider: OANH SULLIVAN Nursing and Triage Documentation Reviewed and Agree: Yes Reviewed sepsis parameters & appropriate labs ordered?: No System Inflammatory Response Syndrome: Not Applicable Sepsis Protocol: For patient's 13 years and over: Temp is 96.8 and below OR 101 and greater Pulse >90 BPM Resp >20/minute Acutely Altered Mental Status Are patient's symptoms suggestive of a new infection, such as: -Pneumonia -Skin, Soft Tissue -Endocarditis -UTI -Bone, Joint Infection -Implantable Device -Acute Abdominal Infection -Wound Infection -Meningitis -Blood Stream Catheter Infection -Unknown Neurological Complaint Exam - Dizziness Complaint/Exam Onset: Sudden Symptoms Are: Still present Timing: Constant Episodes Lasting: Hours Initial Severity: Moderate Current Severity: Moderate Character: Reports: Room spinning, Lightheaded, Weak, Dizzy Aggravating: Reports: Position change, Supine to erect, Change in head position Alleviating: Reports: None Associated Signs and Symptoms: Reports: Short of air, Unsteady gait, Loss of balance. Denies: Nausea, Vomiting, Diaphoresis, Tinnitus, Chest pain, Palpitations, GI blood loss, Visual changes, Decreased oral intake, Change in medication, Change in diet, OTC meds Cardiac Risk Factors: Reports: Hypertension, Diabetes, Elevated lipids CVA Risk Factors: Reports: Diabetes, Hypertension Related Surgical History: Reports: None JVD Present: No Carotid Bruit Present: No Rectal Heme Positive: No Nystagmus Present: No Gag Reflex Present: Yes Meningeal Signs Positive: No Focal Weakness: Present: None Focal Sensory Loss: Present: None Gait: Unable [id number]: Normal Findings Romberg Test Positive: No Babinski Sign: Negative Right, Negative Left Differential Diagnoses: CAD, Hypovolemia, Metabolic abnormalities Quality Indicators for Cardiac Chest Pain: EKG in 10min. Review of Systems - Review Of Systems Constitutional: Reports: Malaise, Weakness Eyes: Reports: No symptoms Ears, Nose, Mouth, Throat: Reports: No symptoms Respiratory: Reports: Short of air Cardiac: Reports: No symptoms GI: Reports: No symptoms : Reports: No symptoms Musculoskeletal: Reports: No symptoms Skin: Reports: No symptoms Neurological: Reports: Headache Endocrine: Reports: No symptoms Hematologic/Lymphatic: Reports: No symptoms All Other Systems: Reviewed and Negative Past Medical History - Past Medical History Endocrine: Reports: DM 2 Cardiovascular: Reports: Hypertension, CHF, A-Fib Respiratory: Reports: COPD Hematological: Reports: None Gastrointestinal: Reports: GERD Genitourinary: Reports: None Neuro/Psych: Reports: None Musculoskeletal: Reports: Arthritis Cancer: Reports: None Last Menstrual Period: na - Surgical History General Surgical History: Reports: Appendectomy, Cholecystectomy, Orthopedic ( bilateral knee replacement) - Family History Family History: Reports: None - Social History Smoking Status: Former smoker Hx Substance Use: No Alcohol Screening: None - Immunizations Tetanus Shot up to Date: Yes Physical Exam - Physical Exam Appearance: Ill-appearing, Obese Ill-appearing: Moderate Eyes: ANA, EOMI ENT: Ears normal, Nose normal, Oropharynx normal Respiratory: Crackles Cardiovascular: RRR, Pulses normal, No rub, No murmur GI/: Soft, Nontender, No masses, Bowel sounds normal, No Organomegaly Musculoskeletal: Edema Skin: Warm, Dry, Normal color Neurological: Sensation intact, Motor intact, Reflexes intact, Cranial nerves intact, Alert, Oriented Psychiatric: Affect appropriate, Mood appropriate Interpretation - Radiology Interpretation Radiology Interpretation By: Radiologist Radiology Results: Positive (bibasilar Pneumonia) Exam Interpreted: CT Scan Radiology Interpretation By: Radiologist Radiology Results: Negative Exam Interpreted: CT Scan - EKG Interpretation Time of EKG #1: 21:50 Rate: Normal Rhythm: Other (afib) Ectopy: None ST Segment: Normal Re-Evaluation - Re-Evaluation Time of Re-Evaluation: 00:25 Status: Improved Physician Notification - Case Discussed Time of Notification: 01:20 (Dr Sullivan) Critical Care Note - Critical Care Note Total Time (mins): 30 Course - Course Hematology/Chemistry: 12/24/17 21:57 12/25/17 00:35 Orders, Labs, Meds: Lab Review 12/24/17 12/24/17 12/24/17 21:45 21:57 21:57 WBC 11.09 H RBC 4.95 Hgb 13.7 Hct 37.3 MCV 75.4 L MCH 27.7 MCHC 36.7 H RDW Coeff of Melissa 14.0 Plt Count 204 Immature Gran % (Auto) 0.4 Neut % (Auto) 85.5 Lymph % (Auto) 7.3 L Summers % (Auto) 5.9 Eos % (Auto) 0.5 Baso % (Auto) 0.4 Immature Gran # (Auto) 0.0 Neut # (Auto) 9.5 H Lymph # (Auto) 0.8 Summers # (Auto) 0.7 Eos # (Auto) 0.1 Baso # (Auto) 0.0 D-Dimer (Manual) Puncture Site Rrad O2 Saturation 92.0 L ABG pH 7.534 H* ABG pCO2 40.5 ABG pO2 57.0 L* ABG HCO3 34.2 H ABG Total CO2 35 H ABG Base Excess 12 H [place] Test + FiO2 % 21.0 Sodium 111 L* Potassium 2.1 L* Chloride 67 L* Carbon Dioxide 27 Anion Gap 19.1 BUN 9 Creatinine 0.70 Estimated GFR (MDRD) 81.00 BUN/Creatinine Ratio 12.85 Glucose 163 H Calcium 9.7 Total Bilirubin 1.7 H AST 49 H ALT 44 Alkaline Phosphatase 56 Total Creatine Kinase 239 CK-MB (CK-2) 4.3 H CK-MB (CK-2) % 1.68071 Troponin I 0.0150 B-Natriuretic Peptide Total Protein 6.6 Albumin 3.3 L Globulin 3.3 Albumin/Globulin Ratio 1.00 Urine Color Urine Clarity Urine pH Ur Specific [place] Urine Protein Urine Glucose (UA) Urine Ketones Urine Blood Urine Nitrite Urine Bilirubin Urine Urobilinogen Ur Leukocyte Esterase Urine Microscopic RBC Urine Microscopic WBC Ur Squamous Epith Cells Urine Bacteria Urine Mucus 12/24/17 12/24/17 12/24/17 21:57 21:57 22:00 WBC RBC Hgb Hct MCV MCH MCHC RDW Coeff of Melissa Plt Count Immature Gran % (Auto) Neut % (Auto) Lymph % (Auto) Summers % (Auto) Eos % (Auto) Baso % (Auto) Immature Gran # (Auto) Neut # (Auto) Lymph # (Auto) Summers # (Auto) Eos # (Auto) Baso # (Auto) D-Dimer (Manual) 493.19 Puncture Site O2 Saturation ABG pH ABG pCO2 ABG pO2 ABG HCO3 ABG Total CO2 ABG Base Excess [place] Test FiO2 % Sodium Potassium Chloride Carbon Dioxide Anion Gap BUN Creatinine Estimated GFR (MDRD) BUN/Creatinine Ratio Glucose Calcium Total Bilirubin AST ALT Alkaline Phosphatase Total Creatine Kinase CK-MB (CK-2) CK-MB (CK-2) % Troponin I B-Natriuretic Peptide 76 Total Protein Albumin Globulin Albumin/Globulin Ratio Urine Color Yellow Urine Clarity Slightly Urine pH 6.0 Ur Specific [place] 1.020 Urine Protein 1+ Urine Glucose (UA) Trace Urine Ketones 2+ Urine Blood Negative Urine Nitrite Positive Urine Bilirubin Negative Urine Urobilinogen 0.2 Ur Leukocyte Esterase Trace Urine Microscopic RBC 0-2 Urine Microscopic WBC 20-30 Ur Squamous Epith Cells 2-5 Urine Bacteria 3+ Urine Mucus Trace 12/25/17 00:35 WBC RBC Hgb Hct MCV MCH MCHC RDW Coeff of Melissa Plt Count Immature Gran % (Auto) Neut % (Auto) Lymph % (Auto) Summers % (Auto) Eos % (Auto) Baso % (Auto) Immature Gran # (Auto) Neut # (Auto) Lymph # (Auto) Summers # (Auto) Eos # (Auto) Baso # (Auto) D-Dimer (Manual) Puncture Site O2 Saturation ABG pH ABG pCO2 ABG pO2 ABG HCO3 ABG Total CO2 ABG Base Excess [place] Test FiO2 % Sodium 114 L* Potassium 2.0 L* Chloride 68 L* Carbon Dioxide 30 Anion Gap 18.0 BUN 9 Creatinine 0.68 Estimated GFR (MDRD) 84.00 BUN/Creatinine Ratio 13.23 Glucose 167 H Calcium 9.7 Total Bilirubin 1.8 H AST 51 H ALT 47 Alkaline Phosphatase 61 Total Creatine Kinase CK-MB (CK-2) CK-MB (CK-2) % Troponin I B-Natriuretic Peptide Total Protein 6.9 Albumin 3.4 Globulin 3.5 Albumin/Globulin Ratio 0.97 Urine Color Urine Clarity Urine pH Ur Specific [place] Urine Protein Urine Glucose (UA) Urine Ketones Urine Blood Urine Nitrite Urine Bilirubin Urine Urobilinogen Ur Leukocyte Esterase Urine Microscopic RBC Urine Microscopic WBC Ur Squamous Epith Cells Urine Bacteria Urine Mucus Orders Category Date Time Status ABG DRAW REQUEST Stat CARDIO 12/24/17 21:45 Completed EKG-(ED ONLY) Stat CARDIO 12/24/17 21:45 Completed NEBULIZER TREATMENT Stat CARDIO 12/24/17 21:45 Completed ABG Stat LAB 12/24/17 21:45 Completed B-TYPE NATRIURETIC PEPTIDE Stat LAB 12/24/17 21:57 Completed CBC W/ AUTO DIFF Stat LAB 12/24/17 21:57 Completed CMP [COMPREHENSIVE METABOLIC PANEL] Stat LAB 12/25/17 00:35 Completed COMPREHENSIVE METABOLIC PANEL Stat LAB 12/24/17 21:57 Completed CREATINE KINASE Stat LAB 12/24/17 21:57 Completed D-DIMER Stat LAB 12/24/17 21:57 Completed TROPONIN I Stat LAB 12/24/17 21:57 Completed URINALYSIS C & S IF INDICATED Stat LAB 12/24/17 22:00 Completed URINE CULTURE Stat LAB 12/24/17 22:00 Received Furosemide [Lasix] MEDS 12/24/17 21:45 Discontinued 40 mg IVP ONCE STA Ipratropium/Albuterol Neb [Duoneb] MEDS 12/24/17 21:45 Discontinued 1 vial NEB ONCE STA Potassium Chloride Additive [Potassium Chloride 20 Meq MEDS 12/24/17 23:34 Discontinued Vial-Additive Only] 20 meq IV .STK-MED ONE Potassium Chloride Additive [Potassium Chloride 20 Meq MEDS 12/24/17 23:10 Active Vial-Additive Only] 20 meq 0.9 % Sodium Chloride [Sodium Chloride] 100 ml IV ONCE Potassium Chloride [K-Dur] MEDS 12/24/17 23:11 Discontinued 40 meq PO ONCE STA Sodium Chloride 3% 500 ml MEDS 12/24/17 23:00 Ordered IV 100 mls/hr CT CHEST W/O CONTRAST Stat RADS 12/24/17 21:[address] HEAD W/O CONTRAST Stat RADS 12/24/17 21:45 Completed Medications Generic Name Dose Route Start Last Admin Trade Name Freq PRN Reason Stop Dose Admin Sodium Chloride 500 mls @ 100 mls/hr 12/24/17 23:00 12/24/17 23:41 Sodium Chloride 3% IV 100 mls/hr .Q5H LAZARO Administration Potassium Chloride 20 meq/ 110 mls @ 50 mls/hr 12/24/17 23:10 12/25/17 00:47 Sodium Chloride IV 12/25/17 01:21 50 mls/hr ONCE STA Administration Discontinued Medications Generic Name Dose Route Start Last Admin Trade Name Freq PRN Reason Stop Dose Admin Albuterol/Ipratropium 1 vial 12/24/17 21:45 12/24/17 22:18 Duoneb NEB 12/24/17 21:46 1 vial ONCE STA Administration Furosemide 40 mg 12/24/17 21:45 12/24/17 22:39 Lasix IVP 12/24/17 21:46 40 mg ONCE STA Administration Potassium Chloride 40 meq 12/24/17 23:11 12/24/17 23:52 K-Dur PO 12/24/17 23:12 40 meq ONCE STA Administration Vital Signs: Temp Pulse Resp BP Pulse Ox 12/25/17 00:22 97.8 F 81 20 136/70 97 12/24/17 21:44 97.2 F L 74 18 140/72 90 L Departure - Departure Time of Disposition: :20 Disposition: ADMITTED INPATIENT Discharge Problem: Hyponatremia, Hypoxemia Pneumonia Qualifiers: Pneumonia type: due to unspecified organism Laterality: bilateral Lung location : lower lobe of lung Qualified Code(s): J18.1 - Lobar pneumonia, unspecified organism Instructions: Hyponatremia (ED) Condition: Stable Pt referred to PMD for follow-up: No IPMP verified?: No Allergies/Adverse Reactions: Allergies Penicillins Adverse Reaction (Intermediate, Verified 12/24/17 22:04) Unknown COLLEEN Inhibitors Adverse Reaction (Verified 12/24/17 22:04) Cough dexamethasone [From Decadron] Adverse Reaction (Verified 12/24/17 22:04) Unknown erythromycin base Adverse Reaction (Verified 12/24/17 22:04) Unknown loratadine [From Claritin] Adverse Reaction (Verified 12/24/17 22:04) Unknown lorazepam [From Ativan] Adverse Reaction (Verified 12/24/17 22:04) Unknown olmesartan medoxomil [From Benicar] Adverse Reaction (Verified 12/24/17 22:04) Unknown Home Medications: Ambulatory Orders Apixaban [Eliquis] 5 mg PO BID 01/26/16 Meclizine HCl 25 mg PO TID 01/26/16 Omeprazole Magnesium [Prilosec Otc] 20 mg PO DAILY 01/26/16 Tramadol HCl 50 mg PO TID PRN 01/26/16 Verapamil HCl [Verapamil ER] 240 mg PO DAILY 01/26/16 Losartan/Hydrochlorothiazide [Hyzaar 50-12.5 mg Tab] 0.5 tab PO DAILY 10/13/16 Metolazone [Zaroxolyn] 2.5 mg PO MOWEFR 10/13/16 Albuterol Sulfate [Proair Hfa] 2 puff IH TID #1 puff 08/22/17 Metformin HCl 500 mg PO BID 12/24/17 Potassium Chloride 10 meq PO DAILY 12/24/17 Disposition Discussed With: Patient, Family
[2017-12-24] MEDS ORDERED: POTASSIUM CHLORIDE 20 MEQ VIAL-ADDITIVE ONLY 20 MEQ in SODIUM CHLORIDE 100 ML IV STA (23:10)
[2017-12-24] MEDS ORDERED: K-DUR PO STA (23:11)
[2017-12-24] MEDS ORDERED: SODIUM CHLORIDE 3% 500 ML IV ONE (23:21)
[2017-12-24] MEDS ORDERED: POTASSIUM CHLORIDE 20 MEQ VIAL-ADDITIVE ONLY IV ONE (23:34)
[2017-12-24] MEDS: SODIUM CHLORIDE 3% 500 ML IV SCH (23:41)
[2017-12-25] MEDS ORDERED: ULTRAM PO PRN (01:16)
[2017-12-25] MEDS ORDERED: COZAAR PO STA (01:17)
[2017-12-25] MEDS ORDERED: ROCEPHIN 1 GM in SODIUM CHLORIDE 50 ML IV SCH (01:30)
[2017-12-25] MEDS ORDERED: SOLU-MEDROL 125 MG IVP SCH (01:30)
[2017-12-25 02:41] VITALS: BMI 46.5
[2017-12-25] MEDS ORDERED: COZAAR ONE (03:22)
[2017-12-25] MEDS ORDERED: ROCEPHIN ONE (04:24)
[2017-12-25] MEDS ORDERED: SODIUM CHLORIDE 50 ML IV ONE (04:34)
[2017-12-25] MEDS: SODIUM CHLORIDE 0.9%-KCL 20 MEQ 1,000 ML IV SCH ×2 (04:34→18:36)
[2017-12-25] MEDS: DUONEB NEB SCH ×4 (05:28→23:35)
[2017-12-25] MEDS ORDERED: MICRO-K CAP PO SCH (08:00)
[2017-12-25] MEDS ORDERED: NON-FORMULARY MEDICATION (Verapamil Hcl [Verapamil Er] 240 MG) PO SCH (09:00)
[2017-12-25] MEDS ORDERED: NON-FORMULARY MEDICATION (Potassium Chloride [Potassium Chloride] 10 MEQ) PO SCH (09:00)
[2017-12-25] MEDS ORDERED: NON-FORMULARY MEDICATION (Omeprazole Magnesium [Prilosec Otc] 20 MG) PO SCH (09:00)
[2017-12-25] MEDS ORDERED: NON-FORMULARY MEDICATION (Meclizine Hcl [Meclizine Hcl] 25 MG) PO SCH (09:00)
[2017-12-25] MEDS: CALAN SR PO SCH (09:17)
[2017-12-25] MEDS: ANTIVERT PO SCH ×3 (09:17→21:11)
[2017-12-25] MEDS: PRILOSEC PO SCH (09:17)
[2017-12-25] MEDS: GLUCOPHAGE PO SCH ×2 (09:18→16:46)
[2017-12-25] MEDS: ELIQUIS PO SCH ×2 (09:18→21:11)
[2017-12-25] MEDS: SOLU-MEDROL 125 MG IVP SCH ×2 (09:18→21:11)
[2017-12-25] MEDS: SODIUM CHLORIDE 3% 500 ML IV SCH (09:19)
[2017-12-25] MEDS ORDERED: K-DUR PO STA (11:36)
[2017-12-25] MEDS: K-DUR PO SCH ×4 (14:01→21:12)
[2017-12-25] MEDS ORDERED: POTASSIUM CHLORIDE 10 MEQ VIAL-ADDITIVE ONLY IV ONE (18:01)
[2017-12-25] MEDS: POTASSIUM CHLORIDE 10 MEQ VIAL-ADDITIVE ONLY 10 MEQ in SODIUM CHLORIDE 0.9%-KCL 20 MEQ ... IV SCH (18:05)
[2017-12-25] MEDS: HUMULIN R SUBCUT PRN ×2 (18:10→21:13)
[2017-12-25] MEDS: ROCEPHIN 1 GM in SODIUM CHLORIDE 50 ML IV SCH (21:11)
[2017-12-26] MEDS: DUONEB NEB SCH ×4 (04:40→23:35)
[2017-12-26] MEDS: HUMULIN R SUBCUT PRN ×4 (05:18→21:44)
[2017-12-26] MEDS: PRILOSEC PO SCH (05:31)
[2017-12-26] MEDS ORDERED: K-DUR PO SCH (08:00)
[2017-12-26] MEDS: GLUCOPHAGE PO SCH ×2 (08:57→17:08)
[2017-12-26] MEDS: MACROBID PO SCH ×2 (09:00→21:44)
[2017-12-26] MEDS: ELIQUIS PO SCH ×2 (09:01→21:43)
[2017-12-26] MEDS: CALAN SR PO SCH (09:01)
[2017-12-26] MEDS: ANTIVERT PO SCH ×3 (09:01→21:43)
[2017-12-26] MEDS: SOLU-MEDROL 125 MG IVP SCH ×2 (09:01→20:54)
--- NOTE | 2017-12-26 09:59 | PCM.PROG ---
Attending Provider: ATTENDING PROVIDER: Dr. OANH SULLIVAN This patient is seen with Irina Queen, Nurse Practitioner. DATE OF SERVICE: 12/26/17 SUBJECTIVE: This 77 year old WHITE/ F was hospitalized 12/25/17. The patient is lying in bed, alert. Sodium and potassium is improving. She has been eating well. REVIEW OF SYSTEMS: CONSTITUTIONAL: Weakness. No night sweats. No malaise, lethargy. No fever or chills. HEENT: Eyes: No visual changes. No eye pain. No eye discharge. ENT: No runny nose. No epistaxis. No sinus pain. No odynophagia. No congestion. RESPIRATORY: No cough, no congestion. No hemoptysis. No shortness of breath. CARDIOVASCULAR: No angina symptoms. No CHF symptoms. No atypical chest pain for CAD. No palpitations. No orthopnea.. GASTROINTESTINAL: No abdominal pain. No nausea or vomiting. No diarrhea or constipation. No hematemesis. No hematochezia. GENITOURINARY: No urgency. No frequency. No dysuria. No hematuria. No obstructive symptoms. No discharge. No pain. No significant abnormal bleeding. MUSCULOSKELETAL: No musculoskeletal pain; no joint swelling. NEUROLOGICAL: Awake, alert, oriented to time, place and person. Positive for dizziness. No headache. No neck pain. No syncope. No seizures. PSYCHIATRIC: Not anxious. No depression. No suicidal thoughts. No homicidal thoughts. SKIN: No rash. No lesions. No wounds. ENDOCRINE: No unexplained weight loss. No weight gain. HEMATOLOGIC/LYMPHATIC: No anemia. No purpura. No petechiae. No prolonged or excessive bleeding. No palpable lymph nodes. PHYSICAL EXAMINATION: GENERAL: The patient is awake, alert and oriented, lying in bed in no distress. VITAL SIGNS: Temperature 97.9 F, Pulse 84, Respiratory Rate 18, BP 137/78, Pulse Ox 93% HEENT: Head normocephalic, atraumatic. Eyes: Extraocular muscles are intact. Pupils are equal, round and reactive to light and accommodation. Ears: No lesions. Nose appeared normal. Throat: No exudate or erythema. NECK: Supple. No JVD, no carotid bruit. No lymphadenopathy or thyromegaly. LUNGS: Diminished breath sounds. Clear to auscultation. Percussion note normal. Chest symmetrical. HEART: Irregular heart rate. S1, S2, no S3. No murmurs. No cyanosis or clubbing. No ascites. Pulses: Dorsalis pedis and posterior tibial pulses +1 to +2 both sides. ABDOMEN: Soft. Non-tender. Bowel sounds active. No CVA tenderness. No mass felt. EXTREMITIES: No edema. Full range of motion of all extremities, equal. NEUROLOGIC: No focal deficit. Cranial nerves II through XII are grossly intact. No headache, no double vision or headache. SKIN: Not dry. Intact. Turgor-normal. LYMPHATIC: No palpable lymph nodes/no lymphedema. MUSCULOSKELETAL: Normal joints with no swelling. Muscle tone is normal. LAB REVIEW: 12/26/17 04:50 12/26/17 04:50 12/26/17 04:50: Sodium 126 L, Potassium 3.8, Chloride 87 L, Carbon Dioxide 28, Anion Gap 14.8, BUN 10, Creatinine 0.82, Estimated GFR (MDRD) 67.00, BUN/ Creatinine Ratio 12.19, Glucose 279 H D, Calcium 10.0, Total Bilirubin 0.6, AST 38 H, ALT 42, Alkaline Phosphatase 55, Total Protein 6.8, Albumin 3.3 L, Globulin 3.5, Albumin/Globulin Ratio 0.94 12/26/17 04:50: WBC 13.65 H, RBC 5.03, Hgb 13.8, Hct 39.8, MCV 79.1 L, MCH 27.4 , MCHC 34.7, RDW Coeff of Melissa 14.4, Plt Count 212, Immature Gran % (Auto) 0.6, Neut % (Auto) 93.9, Lymph % (Auto) 4.2 L, Mayes % (Auto) 1.2, Eos % (Auto) 0.0, Baso % (Auto) 0.1, Immature Gran # (Auto) 0.1, Neut # (Auto) 12.8 H, Lymph # ( Auto) 0.6, Mayes # (Auto) 0.2 L, Eos # (Auto) 0.0, Baso # (Auto) 0.0 12/25/17 15:40: Total Creatine Kinase 341, CK-MB (CK-2) 5.3 H*, CK-MB (CK-2) % 1.41088, Troponin I 0.0110 12/25/17 07:30: Sodium 120 L, Potassium 2.3 L*, Chloride 72 L*, Carbon Dioxide 33 H, Anion Gap 17.3, BUN 8, Creatinine 0.74, Estimated GFR (MDRD) 76.00, BUN/ Creatinine Ratio 10.81, Glucose 150 H, Calcium 9.8, Total Bilirubin 1.3 H, AST 56 H, ALT 44, Alkaline Phosphatase 58, Total Creatine Kinase 497, CK-MB (CK-2) 8.0 H*, CK-MB (CK-2) % 1.79221, Troponin I 0.0180, Total Protein 6.8, Albumin 3.3 L, Globulin 3.5, Albumin/Globulin Ratio 0.94 ASSESSMENT: 1. HYPOKALEMIA 2. HYPONATREMIA 3. DIZZINESS 4. ATRIAL FIB 5. GRAM NEGATIVE RODS IN URINE, CULTURE PENDING PLAN: 1. Check to see if ultrasound of carotids have been done 2. Extra salt 3. Macrobid 100 b.i.d. 4. Potassium 20 mEq daily Plan and coordination of the patient's care discussed in the presence of Commercial Construction Estimator and nurse. CONDITION: Stable SCRIBED BY: HASMUKH MCKEON Jewel Bearing Polisher scribed while in presence of service performed by Dr. Sullivan/Irina Queen APRN on 12/26/17 ([id number])
[2017-12-26] MEDS: SODIUM CHLORIDE 1,000 ML IV SCH (10:09)
[2017-12-26] MEDS: TYLENOL PO PRN (10:14)
--- NOTE | 2017-12-26 13:49 | US ---
EXAM: Ultrasound bilateral carotid duplex HISTORY: Dizziness and fall COMPARISON: Carotid Doppler 11/17/2015 TECHNIQUE: Sonographic and color Doppler evaluation of the carotids were performed. FINDINGS: The right carotid is patent in appearance with no significant atherosclerotic plaque visualized. The right ICA peak systolic velocity measures 80 cm/sec which is normal. The ICA / CCA peak systolic velocity ratio is 1.5 and ICA end-diastolic velocity is 20 cm/sec. Wave s pectral analysis is normal. The left carotid is patent in appearance without significant atherosclerotic plaque visualized. The left ICA peak systolic velocity measures 50 cm/sec which is normal. The left ICA / CCA peak systolic velocity ratio is 0.7 and ICA end-diastolic velocity is 10 cm/sec. W ave spectral analysis is normal. Vertebral arteries demonstrate antegrade flow bilaterally. IMPRESSION: No sonographic or Doppler evidence of hemodynamically significant stenosis.
--- NOTE | 2017-12-26 16:26 | RS.OTINEVL ---
Subjective - Patient information Date of Evaluation: 12/26/17 Date of Arrival on Unit: 12/26/17 Admitted From:: Emergency Dept Diagnosis: Hypokalemia, falls Usual Living Arrangement: Alone Living Arrangement Comments: Pt lives in her house. Pt fell outside of her home while opening the car door. Pt was not able to get up. 4 men had to pick her up. Home Environment: House, Stairs (few) Medical History: Hypertension, COPD Medical History Comments:: B TKA, New diabetic, Dizzy, SOB, altered mental status, gall bladder removed, Peripheral neuropathy, hypercholesterolemia Surgical History: Knee Replacement (gall bladder removed, ), Hysterectomy - Level of function Current Equipment Used at Home: glucometer Pain Assessment - Pain Pain Score: 0 Interventions - Objective Patient Orientation: Person, Place, Time, Situation Current Interventions: IV's, Oxygen, Telemetry, Cheney Catheter Observation: Pt has flushed cheeks on her face, pt is weak in BUE, Pt appears weak. Interventions - ROM Right Upper Extremity AROM: WFL's Left Upper Extremity AROM: WFL's - Strength Right Upper Extremity Strength: Mild Weakness Left Upper Extremity Strength: Mild Weakness - Sensation Right Upper Extremity Sensation: Intact/Normal Left Upper Extremity Sensation: Intact/Normal Balance - Sitting Balance Static Sitting Balance: Fair Dynamic Sitting Balance: Fair - Standing Balance Static Standing Balance: Fair Dynamic Standing Balance: Fair ADL Skills - Self Feeding Self Feeding: Independent - Grooming Grooming: Min Assist - Bathing Bathing UE: Min Assist Bathing LE: Min Assist - Dressing Dressing UE: Set Up Only Dressing LE: Min Assist - Toilet Management Toileting Management: Mod Assist Functional Mobility - Bed Mobility Rolling R/L: Independent Scooting: Independent Supine to Sit: Independent Sit to Supine: Independent - Transfers Sit to Stand: Min Assist, 2 person assist Stand to Sit: Min Assist, 2 person assist Stand Pivot Transfers: Min Assist, 2 person assist - Ambulation Weight Bearing Status: FWB Assistive Device Used: Rolling Walker Assistance needed with Ambulation: Min Assist, 2 person assist - Safety Awareness Safety Awareness: Fair CHANDANA INDEX SCORE: . Additional Treatment Performed - Time with patient Total treatment time: 26 Activities Patient Interests:: Watching Television, Visiting/Socializing Patient Education Patient Education: Education of diagnosis, Home Exercise Program, Home Safety, Education of Plan of Care Teaching Recipient: Patient Teaching Methods: Discussion Assessment Problem List:: Decreased level of function, Requires training/education, Decreased safety/Risk of falls, Weakness Rehab Potential: Good Further Therapy Indicated?: Yes Evaluation Complexity: HISTORY: Medium, EXAM OF BODY SYSTEMS: Medium, CLINICAL DECISION MAKING: Medium Short Term Goals - Goals GOAL 1: Pt to increase dynamic standing balance to Fair Goal to be met by: 12/28/17 GOAL 2: Pt to increase activity tolerance to 10 minutes. Goal to be met by: 12/28/17 GOAL 3: Pt to increase self care management to CGA. Goal to be met by: 12/29/17 Shelter Goals GOAL 1: Pt to increase dynamic standing balance to Fair+ Goal to be met by: 12/30/17 GOAL 2: Pt to increase activity tolerance to 15 minutes. Goal to be met by: 12/30/17 GOAL 3: Pt to increase self care management to (Mod -I). Goal to be met by: 01/02/18 Plan Plan of Care: Therapeutic EX, Neuromuscular Re-Educ, Therapeutic Activity, Self- Care/Home Management Frequency of Treatment: 1-2 X day, as tolerated Duration of Treatment: 1 Week Anticipated Discharge Destination: Home Treatment Diagnosis (ICD 10 Codes): M62.81, Z91.81, Z74.0,M25.512 Has the Physician been added for Co-signature?: Yes
[2017-12-26] MEDS: ROCEPHIN 1 GM in SODIUM CHLORIDE 50 ML IV SCH (20:54)
[2017-12-27] MEDS: POTASSIUM CHLORIDE 10 MEQ VIAL-ADDITIVE ONLY 10 MEQ in SODIUM CHLORIDE 0.9%-KCL 20 MEQ ... IV SCH (01:21)
[2017-12-27] MEDS: SODIUM CHLORIDE 1,000 ML IV SCH ×2 (01:24→19:02)
[2017-12-27] MEDS: PRILOSEC PO SCH (05:30)
[2017-12-27] MEDS: HUMULIN R SUBCUT PRN ×4 (05:33→20:36)
[2017-12-27] MEDS: DUONEB NEB SCH (05:52)
[2017-12-27] MEDS: TYLENOL PO PRN (06:06)
[2017-12-27] MEDS ORDERED: PHENERGAN WITH CODEINE 6.25/10 MG/5 ML PO PRN (08:06)
[2017-12-27] MEDS ORDERED: K-DUR PO SCH (09:00)
[2017-12-27] MEDS: SOLU-MEDROL 125 MG IVP SCH ×2 (09:21→22:03)
[2017-12-27] MEDS: CALAN SR PO SCH (09:23)
[2017-12-27] MEDS: PHENERGAN WITH CODEINE 6.25/10 MG/5 ML PO SCH ×4 (09:23→22:03)
[2017-12-27] MEDS: ANTIVERT PO SCH ×3 (09:24→20:23)
[2017-12-27] MEDS: GLUCOPHAGE PO SCH ×2 (09:25→17:31)
[2017-12-27] MEDS: ELIQUIS PO SCH ×2 (09:25→20:22)
--- NOTE | 2017-12-27 09:41 | RS.PTINEVL ---
Subjective - Patient information Date of Evaluation: 12/26/17 Date of Arrival on Unit: 12/26/17 Admitted From:: Emergency Dept Diagnosis: hypokalemia, hyponatremia, falls Usual Living Arrangement: Alone Living Arrangement Comments: pt lives alone, no steps to enter home Home Environment: House, Level/No stairs Medical History: Hypertension, COPD, Diabetes, CHF Medical History Comments:: neuropathy, metabolic syndrome, asthma, CAD, osteopenia, afib Surgical History: Knee Replacement (BLE), Cholecystectomy, Hysterectomy Medications: see chart Subjective Information/ Patient Comments:: pt states she does not know why she fell, legs just buckled. States she is unable to get back up without much assist. - Level of function Prior to this admission, the patient could do the following:: Independent Selfcare, Independent ADL's, Independent Ambulation, Drive Current Level of Function: Partially Dependent Current Equipment Used at Home: quad cane Interventions - Objective Patient Orientation: Person, Place, Time, Situation Current Interventions: IV's, Telemetry, [place] Catheter Range of Motion - ROM Right Upper Extremity AROM: WFL's Left Upper Extremity AROM: WFL's Right Lower Extremity AROM: WFL's Left Lower Extremity AROM: WFL's Muscle Strength - Muscle Strength Right Upper Extremity Strength: Mild Weakness (BUE grossly 4-/5) Left Upper Extremity Strength: Mild Weakness (BUE grossly 4-/5) Right Lower Extremity Strength: Mild Weakness (hip flex 4-/5, knee flex/ext 4/5 , ankle DF/PF 4/5) Left Lower Extremity Strength: Mild Weakness (hip flex 4-/5, knee flex/ext 4/5, ankle DF/PF 4/5) Sensation - Sensation Right Upper Extremity Sensation: Impaired Left Upper Extremity Sensation: Impaired Right Lower Extremity Sensation: Impaired Left Lower Extremity Sensation: Impaired (n/t B hands and feet) Palpation Palpation Findings: None/Normal Balance - Sitting Balance and Reactions Static Sitting Balance: Good Dynamic Sitting Balance: Fair Sitting Equilibrium Reactions: Delayed Left, Delayed Right Sitting Protective Reactions: Delayed Left, Delayed Right - Standing Balance and Reactions Static Standing Balance: Poor Dynamic Standing Balance: Poor Standing Equilibrium Reactions: Delayed Left, Delayed Right Standing Protective Reactions: Delayed Left, Delayed Right - Comments Balance Assessment Comments: pt with increased lat sway and c/o dizziness with position changes Functional Mobility - Bed Mobility Rolling R/L: Min Assist Supine to Sit: Min Assist - Transfers Sit to Stand: Min Assist, 2 person assist Stand to Sit: Min Assist, 1 person assist - Safety Awareness Safety Awareness: Fair CHANDANA INDEX SCORE: n/a Ambulation - Ambulation Assistive Device Used: Rolling Walker Orthotic/Prosthetic Device: No Distance: 5-7ft Assistance needed with Ambulation: CGA, Min Assist, 1 person assist Quality of Ambulation: pt amb with min to CGA x 1 + 1 for equipment Gait Deviations: Forward posture, Short stride Ambulation Comments: pt amb with increased lat sway and decreased step length, no heel strike noted Factors Affecting Ambulation: Decreased Balance, Weakness, Decreased Coordination, Dizziness, Decreased Safety, Cognitive Status, Limited Endurance Treatment time - Time with patient Total treatment time: 26 Patient Education - Education Patient Education: Activity Modification, Education of Plan of Care Teaching Recipient: Patient Teaching Methods: Discussion (discussion with patient regarding POC as well as safety) Assessment - Assessment Problem List:: Decreased level of function, Requires training/education, Decreased safety/Risk of falls, Weakness, Cognitive status limits abilities Rehab Potential: Good Further Therapy Indicated?: Yes Evaluation Complexity: HISTORY: Medium (CHF DM, HTN, neuropathy,), EXAM OF BODY SYSTEMS: Medium, CLINICAL PRESENTATION: Medium (evolving), CLINICAL DECISION MAKING: Low Short Term Goals GOAL #1: pt demonstrate independence with bed mobility Goal to be met by: 12/29/17 GOAL #2: pt transfer sup to/from sit to/from stand CGA Goal to be met by: 12/29/17 GOAL #3: pt amb with rwx 100ft with CGA with no LOB Goal to be met by: 12/29/17 Mcc Goals GOAL #1: pt transfer sup to/from sit to/from stand SBA Goal to be met by: 12/31/17 GOAL #2: pt amb with AAD functional household distances with no LOB with SBA Goal to be met by: 12/31/17 GOAL #3: pt demonstrate improved LE strength 4 to 4+/5 Goal to be met by: 12/31/17 Plan Plan of Care: Therapeutic EX, Therapeutic Activity Other:: gait training Frequency of Treatment: 1-2 X day, as tolerated Duration of Treatment: 5 days Anticipated Discharge Destination: Home Treatment Diagnosis (ICD 10 Codes): R29.6 repeated falls. R 26.2 difficulty walking Has the Physician been added for Co-signature?: Yes
--- NOTE | 2017-12-27 11:07 | PCM.PROG ---
Attending Provider: ATTENDING PROVIDER: Dr. OANH ROSE This patient is seen with Irina Queen, Nurse Practitioner. DATE OF SERVICE: 12/27/17 SUBJECTIVE: This 77 year old WHITE/ F was hospitalized 12/25/17. The patient is sitting on the side of the bed, alert. Sodium and potassium both improved. Carotid scan negative yesterday and dizziness improved. REVIEW OF SYSTEMS: CONSTITUTIONAL: Weakness. No night sweats. No malaise, lethargy. No fever or chills. HEENT: Eyes: No visual changes. No eye pain. No eye discharge. ENT: No runny nose. No epistaxis. No sinus pain. No odynophagia. No congestion. RESPIRATORY: Cough. No congestion. No hemoptysis. No shortness of breath. CARDIOVASCULAR: No angina symptoms. No CHF symptoms. No atypical chest pain for CAD. No palpitations. No orthopnea.. GASTROINTESTINAL: No abdominal pain. No nausea or vomiting. No diarrhea or constipation. No hematemesis. No hematochezia. GENITOURINARY: No urgency. No frequency. No dysuria. No hematuria. No obstructive symptoms. No discharge. No pain. No significant abnormal bleeding. MUSCULOSKELETAL: No musculoskeletal pain; no joint swelling. NEUROLOGICAL: Awake, alert, oriented to time, place and person. No headache. No neck pain. No syncope. No seizures. Improving dizziness. PSYCHIATRIC: Not anxious. No depression. No suicidal thoughts. No homicidal thoughts. SKIN: No rash. No lesions. No wounds. ENDOCRINE: No unexplained weight loss. No weight gain. HEMATOLOGIC/LYMPHATIC: No anemia. No purpura. No petechiae. No prolonged or excessive bleeding. No palpable lymph nodes. PHYSICAL EXAMINATION: GENERAL: The patient is awake, alert and oriented times three, sitting in bed in no distress. VITAL SIGNS: Temperature 98.1 F, Pulse 88, Respiratory Rate 20, BP 150/92, Pulse Ox 95% HEENT: Head normocephalic, atraumatic. Eyes: Extraocular muscles are intact. Pupils are equal, round and reactive to light and accommodation. Ears: No lesions. Nose appeared normal. Throat: No exudate or erythema. NECK: Supple. No JVD, no carotid bruit. No lymphadenopathy or thyromegaly. LUNGS: Diminished breath sounds. Clear to auscultation. Percussion note normal. Chest symmetrical. HEART: S1, S2, no S3. No murmurs. No cyanosis or clubbing. No ascites. Pulses: Dorsalis pedis and posterior tibial pulses +1 to +2 both sides. ABDOMEN: Soft. Non-tender. Bowel sounds active. No CVA tenderness. No mass felt. EXTREMITIES: No edema. Full range of motion of all extremities, equal. NEUROLOGIC: No focal deficit. Cranial nerves II through XII are grossly intact. No headache, no double vision or headache. SKIN: Not dry. Intact. Turgor-normal. LYMPHATIC: No palpable lymph nodes/no lymphedema. MUSCULOSKELETAL: Normal joints with no swelling. Muscle tone is normal. LAB REVIEW: 12/27/17 04:10 12/27/17 04:10 12/27/17 04:10: Sodium 128 L, Potassium 4.2, Chloride 90 L, Carbon Dioxide 27, Anion Gap 15.2, BUN 15, Creatinine 0.87, Estimated GFR (MDRD) 63.00, BUN/ Creatinine Ratio 17.24, Glucose 296 H, Calcium 9.7, Total Bilirubin 0.4, AST 35 , ALT 42, Alkaline Phosphatase 59, Total Protein 7.3, Albumin 3.3 L, Globulin 4.0, Albumin/Globulin Ratio 0.83 12/27/17 04:10: WBC 17.28 H, RBC 4.76, Hgb 13.0, Hct 39.0, MCV 81.9, MCH 27.3, MCHC 33.3, RDW Coeff of Melissa 14.6, Plt Count 208, Immature Gran % (Auto) 0.5, Neut % (Auto) 95.7, Lymph % (Auto) 2.1 L, [place] % (Auto) 1.6, Eos % (Auto) 0.0, Baso % (Auto) 0.1, Immature Gran # (Auto) 0.1, Neut # (Auto) 16.5 H, Lymph # ( Auto) 0.4 L, [place] # (Auto) 0.3 L, Eos # (Auto) 0.0, Baso # (Auto) 0.0 ASSESSMENT: 1. HYPOKALEMIA, RESOLVED 2. HYPONATREMIA, IMPROVING 3. DIZZINESS, IMPROVING 4. ATRIAL FIB 5. UTI SENSITIVE TO ROCEPHIN 6. COPD PLAN: 1. Discontinue Macrobid 2. Phenergan with Codeine one teaspoon q.8hr p.r.n. 3. Xopenex nebs t.i.d. 4. Decrease fluids to 42 mL/hr 5. D/C [place] Plan and coordination of the patient's care discussed in the presence of Solutions Consultant and nurse. CONDITION: Stable SCRIBED BY: HASMUKH MCKEON Product Ambassador scribed while in presence of service performed by Dr. Rose/Irina Queen APRN on 12/27/17 ([id number])
[2017-12-27] MEDS: XOPENEX 1.25 MG NEB SCH ×2 (14:09→22:10)
[2017-12-27] MEDS ORDERED: DECADRON 4 MG/ML SDV IM STA (16:06)
[2017-12-27] MEDS: ROCEPHIN 1 GM in SODIUM CHLORIDE 50 ML IV SCH (22:03)
[2017-12-28] MEDS: XOPENEX 1.25 MG NEB SCH ×3 (04:38→19:50)
[2017-12-28] MEDS: PRILOSEC PO SCH (05:44)
[2017-12-28] MEDS: HUMULIN R SUBCUT PRN ×4 (05:44→20:18)
--- NOTE | 2017-12-28 08:44 | PCM.PROG ---
Attending Provider: ATTENDING PROVIDER: Dr. OANH SULLIVAN This patient is seen with Irina Queen, Nurse Practitioner. DATE OF SERVICE: 12/28/17 SUBJECTIVE: This 77 year old WHITE/ F was hospitalized 12/25/17. The patient is lying in bed, alert. Dizziness is somewhat better. The patient still needs help getting up. She would like to stay another day. Sodium is up by one point today. REVIEW OF SYSTEMS: CONSTITUTIONAL: Weakness. No night sweats. No malaise, lethargy. No fever or chills. HEENT: Eyes: No visual changes. No eye pain. No eye discharge. ENT: No runny nose. No epistaxis. No sinus pain. No odynophagia. No congestion. RESPIRATORY: Cough. No congestion. No hemoptysis. No shortness of breath. CARDIOVASCULAR: No angina symptoms. No CHF symptoms. No atypical chest pain for CAD. No palpitations. No orthopnea.. GASTROINTESTINAL: No abdominal pain. No nausea or vomiting. No diarrhea or constipation. No hematemesis. No hematochezia. GENITOURINARY: No urgency. No frequency. No dysuria. No hematuria. No obstructive symptoms. No discharge. No pain. No significant abnormal bleeding. MUSCULOSKELETAL: No musculoskeletal pain; no joint swelling. NEUROLOGICAL: Awake, alert, oriented to time, place and person. No headache. No neck pain. No syncope. No seizures. No dizziness. PSYCHIATRIC: Not anxious. No depression. No suicidal thoughts. No homicidal thoughts. SKIN: No rash. No lesions. No wounds. ENDOCRINE: No unexplained weight loss. No weight gain. HEMATOLOGIC/LYMPHATIC: No anemia. No purpura. No petechiae. No prolonged or excessive bleeding. No palpable lymph nodes. PHYSICAL EXAMINATION: GENERAL: The patient is awake, alert and oriented, lying in bed in no distress. VITAL SIGNS: Temperature 97.5 F, Pulse 96, Respiratory Rate 12, BP 152/85, Pulse Ox 96% HEENT: Head normocephalic, atraumatic. Eyes: Extraocular muscles are intact. Pupils are equal, round and reactive to light and accommodation. Ears: No lesions. Nose appeared normal. Throat: No exudate or erythema. NECK: Supple. No JVD, no carotid bruit. No lymphadenopathy or thyromegaly. LUNGS: Diminished breath sounds. Clear to auscultation. Percussion note normal. Chest symmetrical. HEART: Irregular heart rate. S1, S2, no S3. No murmurs. No cyanosis or clubbing. No ascites. Pulses: Dorsalis pedis and posterior tibial pulses +1 to +2 both sides. ABDOMEN: Soft. Non-tender. Bowel sounds active. No CVA tenderness. No mass felt. EXTREMITIES: No edema. Full range of motion of all extremities, equal. NEUROLOGIC: No focal deficit. Cranial nerves II through XII are grossly intact. No headache, no double vision or headache. SKIN: Not dry. Intact. Turgor-normal. LYMPHATIC: No palpable lymph nodes/no lymphedema. MUSCULOSKELETAL: Normal joints with no swelling. Muscle tone is normal. LAB REVIEW: 12/28/17 05:00 12/28/17 05:00 12/28/17 05:00: Sodium 129 L, Potassium 4.7, Chloride 92 L, Carbon Dioxide 26, Anion Gap 15.7, BUN 17, Creatinine 0.84, Estimated GFR (MDRD) 66.00, BUN/ Creatinine Ratio 20.23, Glucose 342 H, Calcium 9.8, Total Bilirubin 0.4, AST 27 , ALT 50, Alkaline Phosphatase 62, Total Protein 6.9, Albumin 3.4, Globulin 3.5 , Albumin/Globulin Ratio 0.97 12/28/17 05:00: WBC 11.93 H D, RBC 4.74, Hgb 13.2, Hct 39.6, MCV 83.5, MCH 27.8 , MCHC 33.3, RDW Coeff of Melissa 14.7, Plt Count 190, Immature Gran % (Auto) 1.2, Neut % (Auto) 91.0, Lymph % (Auto) 5.4 L, [place] % (Auto) 2.1, Eos % (Auto) 0.2, Baso % (Auto) 0.1, Immature Gran # (Auto) 0.1, Neut # (Auto) 10.9 H, Lymph # ( Auto) 0.6, [place] # (Auto) 0.3 L, Eos # (Auto) 0.0, Baso # (Auto) 0.0 ASSESSMENT: 1. HYPOKALEMIA, RESOLVED 2. HYPONATREMIA, IMPROVING 3. DIZZINESS, IMPROVING 4. ATRIAL FIB 5. UTI SENSITIVE TO ROCEPHIN 6. COPD 7. ACUTE SINUSITIS 8. HYPERTENSION PLAN: 1. Up and about 2. Increase salt intake 3. D/C IV Solu-Medrol 4. Prednisone 20 mg b.i.d. 5. D/C IV fluids 6. Encourage fluid intake 7. Continue IV Rocephin 8. Losartan 50 mg daily 9. Potassium 10 mEq daily (decrease from 20 mEq) 10. Flonase Plan and coordination of the patient's care discussed in the presence of Fence Supervisor and nurse. CONDITION: Stable SCRIBED BY: Janeth LAMBERT scribed while in presence of service performed by Dr. Sullivan/Irina Queen APRN on 12/28/17 ([id number])
[2017-12-28] MEDS ORDERED: K-DUR PO SCH (09:00)
[2017-12-28] MEDS: CALAN SR PO SCH (09:21)
[2017-12-28] MEDS: MICRO-K CAP PO SCH (09:21)
[2017-12-28] MEDS: COZAAR PO SCH (09:21)
[2017-12-28] MEDS: GLUCOPHAGE PO SCH ×2 (09:21→17:32)
[2017-12-28] MEDS: PREDNISONE PO SCH ×2 (09:21→17:32)
[2017-12-28] MEDS: ELIQUIS PO SCH ×2 (09:22→20:20)
[2017-12-28] MEDS: ANTIVERT PO SCH ×3 (09:22→20:20)
[2017-12-28] MEDS: FLONASE NAS SCH (09:27)
[2017-12-28] MEDS: PHENERGAN WITH CODEINE 6.25/10 MG/5 ML PO SCH ×4 (09:27→20:19)
[2017-12-28] MEDS: SODIUM CHLORIDE 1,000 ML IV SCH (11:17)
--- NOTE | 2017-12-28 13:05 | PN ---
DATE OF SERVICE: 12/26/17 SUBJECTIVE: The patient was seen and examined with Nurse Practitioner. The patient's electrolytes are better. The potassium is 3.8. She is feeling a lot better. The patient is strongly advised to take her diuretic Lasix five days a week and Zaroxolyn will be discontinued. Also advised not to drink too much water. Her cardiovascular status is stable. TIME SPENT: More than 30 minutes. Plan and coordination of the patient's care discussed in the presence of nurse. WOOD
--- NOTE | 2017-12-28 14:52 | PN ---
DATE OF SERVICE: 12/27/17 SUBJECTIVE: The patient was seen and examined with the Nurse Practitioner. The patient's electrolyte imbalance with hyponatremia has improved a lot with sodium of 128. She is feeling somewhat better. She has dry cough. The patient has asthma. CONDITION: Improving. The patient was seen and examined with Nurse Practitioner. TIME SPENT: More than 30 minutes. Plan and coordination of the patient's care discussed in the presence of nurse. WOOD
[2017-12-28] MEDS: ROCEPHIN 1 GM in SODIUM CHLORIDE 50 ML IV SCH (20:19)
[2017-12-28] MEDS: TYLENOL PO PRN (20:20)
[2017-12-29] MEDS: XOPENEX 1.25 MG NEB SCH ×2 (05:19→13:40)
[2017-12-29] MEDS: PRILOSEC PO SCH (05:32)
[2017-12-29] MEDS: HUMULIN R SUBCUT PRN ×2 (05:52→11:01)
[2017-12-29] MEDS: FLONASE NAS SCH (08:15)
[2017-12-29] MEDS: CALAN SR PO SCH (08:16)
[2017-12-29] MEDS: MICRO-K CAP PO SCH (08:16)
[2017-12-29] MEDS: COZAAR PO SCH (08:17)
[2017-12-29] MEDS: ANTIVERT PO SCH (08:17)
[2017-12-29] MEDS: PREDNISONE PO SCH (08:17)
[2017-12-29] MEDS: GLUCOPHAGE PO SCH (08:18)
[2017-12-29] MEDS: ELIQUIS PO SCH (08:18)
[2017-12-29] MEDS: PHENERGAN WITH CODEINE 6.25/10 MG/5 ML PO SCH ×2 (08:18→12:36)
--- NOTE | 2017-12-29 10:02 | HP ---
DATE OF SERVICE: 12/25/17 REASON FOR HOSPITALIZATION/HISTORY OF PRESENT ILLNESS: 77 year old white female who was brought in by the ambulance. She fell at home twice and was unable to get up the second time. She has been extremely dizzy, mild shortness of breath and her legs are swollen. PAST MEDICAL HISTORY: Obesity Diabetes Mellitus type 2 Bronchial asthmas COPD History of CHF Hypertension LVH Atrial fibrillation she is on Eliquis Neuropathy Metabolic syndrome Vitamin D deficiency Osteopenia PAST SURGICAL HISTORY: Tubal ligation 1968 Hysterectomy 1999 Cholecystectomy Appendectomy 1947 REVIEW OF SYSTEMS: CONSTITUTIONAL: No night sweats. No fatigue, malaise, lethargy. No fever or chills. Weakness. HEENT: Eyes: No visual changes. No eye pain. No eye discharge. ENT: No runny nose. No epistaxis. No sinus pain. No sore throat. No odynophagia. No ear pain. No congestion. RESPIRATORY: No cough, no congestion. No hemoptysis. No shortness of breath. CARDIOVASCULAR: No angina symptoms. No CHF symptoms. No atypical chest pain for CAD. No palpitations. No PND. No orthopnea. GASTROINTESTINAL: No abdominal pain. Nausea. No diarrhea or constipation. No hematemesis. No hematochezia. GENITOURINARY: No urgency. No frequency. No dysuria. No hematuria. No obstructive symptoms. No discharge. No pain. No significant abnormal bleeding. MUSCULOSKELETAL: No musculoskeletal pain. No joint swelling. No arthritis. NEUROLOGICAL: No headache. No neck pain. No syncope. No seizures. Dizziness. PSYCHIATRIC: Not anxious. No depression. No suicidal thoughts. No homicidal thoughts. SKIN: No rash. No lesions. No wounds. ENDOCRINE: No unexplained weight loss. No weight gain. HEMATOLOGIC/LYMPHATIC: No anemia. No purpura. No petechiae. No prolonged or excessive bleeding. No palpable lymph nodes. PERSONAL/FAMILY/SOCIAL HISTORY: The patient is a , she has 4 children. She lives at home alone. She is a nonsmoker, no alcohol or illicit drug use. MEDICATIONS: Verapamil 240mg PO daily Eliquis 5mg PO twice a day Tramadol 50mg PO three times a day PRN Prilosec 20mg PO daily Meclizine 25mg PO three times a day Zaroxolyn 2.5mg PO MOWeFR Hyzaar 50-12.5 half tablet PO daily ProAir 2 puff IH three times a day Potassium Chloride 10meq PO daily Metformin 500mg PO twice a day ALLERGIES: Penicillin Erythromycin Benicar Ativan Claritin PHYSICAL EXAMINATION: GENERAL: The patient is is alert and oriented to person. The patient is unsteady. VITAL SIGNS: HEENT: Head normocephalic, atraumatic. Eyes: Extraocular muscles are intact. Pupils are equal, round and reactive to light and accommodation. Ears: No lesions. Nose appeared normal. Throat: No exudate or erythema. NECK: Supple. No JVD, no carotid bruit. No lymphadenopathy or thyromegaly. LUNGS: Diminished breath sounds bilaterally. Clear to auscultation. Percussion note normal. Chest symmetrical. HEART: S1, S2, no S3. Irregular heart rate consistent with atrial fibrillation. No murmurs. No cyanosis or clubbing. No ascites. Pulses: Dorsalis pedis and posterior tibial pulses +1 to +2 bilaterally. ABDOMEN: Soft. Nontender. Bowel sounds active. No CVA tenderness. No mass felt. EXTREMITIES: +1 bilateral extremity edema. Full range of motion of all extremities, equal. NEUROLOGIC: No focal deficit. Cranial nerves II through XII are grossly intact. No headache, no double vision or headache. Extreme dizziness. SKIN: Not dry. Intact. Turgor - normal. LYMPHATIC: No palpable lymph nodes/no lymphedema. MUSCULOSKELETAL: Normal joints with no swelling. Muscle tone is normal. LABS: Initial ABG's on room air pH 7.534, pCo2 40.5, po2 57, base excess of 12, bicarb 34.2, TCo2 35, O2 saturation 92, sodium 111, potassium 2.1, chloride 67, CO2 27, BUN 9, creatinine 0.7, glucose 163, total bilirubin 1.7, AST 49, ALT 44 , Alkaline Phosphatase 56, BNP 76, D-Dimer 493, urine showed 2+ ketones, 1+ protein, Nitrite positive. 3+ bacteria. WBC 11.09, hgb 13.7, hct 37.3, plt count 204. CT of brain showed age appropriate atrophy with chronic microvascular disease, no acute process. CT scan of the thorax showed Cardiomegaly no effusion. Minimal atelectasis and fatty liver. ASSESSMENT: 1. Acute hypokalemia 2. Acute hyponatremia 3. Dizziness 4. Status post fall 5. Atrial fibrillation 6. COPD 7. Urinary tract infection, culture pending 8. Diabetes mellitus type 2, recently started Metformin 9. History of Vertigo PLAN: 1. We will admit to the unit 2. Oral potassium 20meq PO 5 times daily, start with 20meq in each bag of each bag of IV fluids at 75cc an hour with normal saline 3. Routine telemetry monitoring 4. CBC and CMP daily 5. Sliding scale for insulin 6. Chest x-ray 7. Elevate the legs 8. Continue home medications 9. DUO NEBS nebulizer treatments Q 6 hours 10.Rocephin 1 gram IV daily 11.Solu-Medrol 125mg Q 12 hours IV Will follow closely. TIME SPENT: More than 70 minutes. MTDD
--- NOTE | 2017-12-29 12:49 | CM.DICTOOL ---
ADMISSION: 12/25/17 01:40 DISCHARGE: 12/29/17 DATE OF SERVICE: 12/29/17 FINAL DIAGNOSIS HYPOKALEMIA, RESOLVED HYPONATREMIA, IMPROVED DIZZINESS/WEAKNESS, IMPROVED FALLS AT HOME X2 SINUSITIS, IMPROVED HYPERTENSION IMPROVED UTI, ORGANISM JAYSON CAMACHO, TREATED INFLUENZA A, 09/01 ([facility]) CAD ATRIAL FIBRILLATION (ELIQUIS) CHF BY HISTORY LEFT VENTRICULAR HYPERTROPHY, MODERATE BRONCHIAL ASTHMA DM, TYPE 2 NEUROPATHY METABOLIC SYNDROME OSTEOPENIA BILATERAL TOTAL KNEE REPLACEMENTS CHOLECYSTECTOMY HYSTERECTOMY ECHO, 10/28/16 LVH (MODERATE) AND ENLARGED LEFT ATRIAL CAVITY (5.5 CM) STIFF LEFT VENTRICLE WITH LVEF 50% NORMAL VALVES LEFT VENTRICLE SIZE 5.5 CM LAST VITALS Temp Pulse Resp BP Pulse Ox 97.6 F 69 12 149/86 H 96 12/29/17 06:00 12/29/17 06:00 12/29/17 06:00 12/29/17 06:00 12/29/17 06:00 TAKE THESE MEDICATIONS AT HOME Albuterol Sulfate (Proair Hfa) 2 Puffs IH TID Apixaban (Eliquis) 5 mg PO BID [facility] Last Admin: 12/29/17 08:18 Dose: 5 mg Cephalexin (Keflex) 500 mg PO TID x7 DAYS Losartan/Hydrochlorothiazide (Hyzaar) 50/12.5 mg PO DAILY [facility] Meclizine HCl (Antivert) 25 mg PO TID [facility] Last Admin: 12/29/17 08:17 Dose: 25 mg Metformin HCl (Glucophage) 500 mg PO BIDWM [facility] Last Admin: 12/29/17 08:18 Dose: 500 mg Metolazone (Zaroxolyn) 2.5 mg PO TID Omeprazole (Prilosec) 20 mg PO QDAC [facility] Last Admin: 12/29/17 05:32 Dose: 20 mg Potassium Chloride (Micro-K Cap) 10 meq PO DAILYWM [facility] Last Admin: 12/29/17 08:16 Dose: 10 meq Prednisone (Prednisone) 20 mg PO BIDWM x5 DAYS Last Admin: 12/29/17 08:17 Dose: 20 mg Tramadol HCl (Ultram) 50 mg PO TID PRN PRN Reason: Joint Pain Verapamil HCl (Calan Sr) 240 mg PO DAILY [facility] Last Admin: 12/29/17 08:16 Dose: 240 mg MEDICATION CHANGES DURING THIS STAY Held Jose Torres. Hyzaar to be continued on 12/30/17 Held Metolazone 2.5 mg. To be continued on 01/02/18 See New Prescriptions ALLERGIES Penicillins Adverse Reaction (Intermediate, Verified 12/24/17 22:04) Unknown COLLEEN Inhibitors Adverse Reaction (Verified 12/24/17 22:04) Cough dexamethasone [From Decadron] Adverse Reaction (Verified 12/24/17 22:04) Unknown erythromycin base Adverse Reaction (Verified 12/24/17 22:04) Unknown loratadine [From Claritin] Adverse Reaction (Verified 12/24/17 22:04) Unknown lorazepam [From Ativan] Adverse Reaction (Verified 12/24/17 22:04) Unknown olmesartan medoxomil [From Benicar] Adverse Reaction (Verified 12/24/17 22:04) Unknown NEW PRESCRIPTIONS: KEFLEX 500 MG, TAKE ONE CAPSULE BY MOUTH THREE TIMES DAILY FOR 7 DAYS PREDNISONE 10 MG, TAKE ONE TABLET BY MOUTH TWICE DAILY FOR 5 DAYS SMOKING: FORMER SMOKER NONE NOW DISEASE SPECIFIC EDUCATION: ELECTROLYTE IMBALANCE DIZZINESS SINUSITIS UTI HYPERTENSION DM, TYPE 2 DIABETIC DIET/ACTIVITY HOME HEALTH REFERRAL FOR NURSING, PT/OT SERVICES [facility] FOR POSSIBLE H[facility]AKING SERVICES [facility] RE[facility] FOR APPROPRIATE DIABETIC DIET HOME MEDICATIONS NEW PRESCRIPTIONS FOLLOW UP LAB REVIEW: 12/29/17 04:30 12/29/17 04:30 12/29/17 04:30: Sodium 129 L, Potassium 4.5, Chloride 93 L, Carbon Dioxide 27, Anion Gap 13.5, BUN 21 H, Creatinine 0.84, Estimated GFR (MDRD) 66.00, BUN/ Creatinine Ratio 25.00, Glucose 284 H D, Calcium 9.8, Total Bilirubin 0.4, AST 29, ALT 55, Alkaline Phosphatase 57, Total Protein 6.7, Albumin 3.3 L, Globulin 3.4, Albumin/Globulin Ratio 0.97 12/29/17 04:30: WBC 8.96, RBC 4.75, Hgb 13.1, Hct 39.7, MCV 83.6, MCH 27.6, MCHC 33.0, RDW Coeff of Melissa 14.9 H, Plt Count 187, Immature Gran % (Auto) 0.7, Neut % (Auto) 85.1, Lymph % (Auto) 8.1 L, [facility] % (Auto) 5.9, Eos % (Auto) 0.1, Baso % (Auto) 0.1, Immature Gran # (Auto) 0.1, Neut # (Auto) 7.6 H, Lymph # ( Auto) 0.7, [facility] # (Auto) 0.5, Eos # (Auto) 0.0, Baso # (Auto) 0.0 PLAN: DISCHARGE HOME TODAY RETURN TO DR. SULLIVAN'S OFFICE FOR FOLLOW UP ON 01/03/18 AT 11 A.M. [facility] WILL CONTACT YOU TO ARRANGE NURSING SERVICES, PHYSICAL THERAPY AND OCCUPATIONAL THERAPY IN YOUR HOME [phone] [facility] WILL CONTACT YOU TO SCHEDULE A VISIT TO DETERMINE IF YOU QUALIFY FOR POSSIBLE HOMEMAKING SERVICES [facility] APPOINTMENT IS SCHEDULED FOR 01/10/18 AT 9:30 A.M. YOU WILL SEE THE ICT SALES ASSISTANT ON THE DAYS YOU ARE AT [facility] FOR [facility] RESUME YOUR HOME MEDICATIONS PER LIST PROVIDED BY THE NURSING STAFF DO NOT RESTART YOUR ZAROXOLYN TOMORROW. WAIT UNTIL 01/02/18 DO NOT RESTART YOUR HYZAAR (LOSARTAN/HYDROCHLOROTHIAZIDE) UNTIL TUESDAY, NEW PRESCRIPTIONS KEFLEX 500 MG, TAKE ONE CAPSULE BY MOUTH THREE TIMES DAILY FOR 7 DAYS PREDNISONE 10 MG, TAKE ONE TABLET BY MOUTH TWICE DAILY FOR 5 DAYS DIET CONSISTENT CARBS INSTRUCTED BY THE ICT SALES ASSISTANT YOU MAY USE SALT TO SEASON YOUR FOODS LIMIT THE AMOUNT OF LIQUIDS YOU DRINK DAILY TO APPROXIMATELY 2000 ML (2LITERS) ACTIVITY GET PLENTY OF REST AT HOME. GRADUALLY INCREASE YOUR ACTIVITY ACCORDING TO YOUR TOLERATION SUMMARY THE PATIENT IS ALERT AND ORIENTED X3. SHE CURRENTLY RESIDES AT HOME. HER DAUGHTER IS SUPPORTIVE OF HER NEEDS WHEN NECESSARY AND PROVIDES TRANSPORTATION ALSO WHEN NECESSARY. MS. IRENE HAS A SHOWER CHAIR, BEDSIDE COMMODE, CANE AND ROLLING WALKER AT HOME. SHE HAS A GLUCOMETER AND TESTING SUPPLIES. SHE DESIRES TO RETURN HOME AT DISCHARGE. SHE HAS CHOSEN [facility] FOR REFERRAL TO PROVIDE NURSING SERVICES ( GENERAL ASSESSMENT, MEDICATION COMPLIANCE), PHYSICAL THERAPY AND OCCUPATIONAL THERAPY. SHE HAS ALSO AGREED TO REFERRAL TO [facility] FOR HOMEMAKING SERVICES. SHE HAS BEEN REFERRED TO [facility] FOR OUTPATIENT GROUP THERAPY AND WILL ATTEND DIETARY COUNSELING FOR HER DIABETES ON THE SAME DAYS SHE ATTENDS [facility]. SHE DOES NOT QUALIFY FOR HOME OXYGEN AT THIS TIME. THE PATIENT'S APPETITE AND HYDRATION STATUS ARE VERY GOOD. HER ELECTROLYTES THAT WERE DEPLETED ON ADMISSION HAVE IMPROVED. THE POTASSIUM IS NOW WNL AND THE SODIUM IS NEAR NORMAL. SKIN IS INTACT AND WITHOUT DECUBITUS ULCERS. TURGOR IS FAIR TO GOOD. MS. IRENE IS NOT EXPERIENCING ANY DYSURIA, FEVER OR N/V. SHE HAS TOLERATED THE ANTIBIOTIC COURSE FOR HER UTI WITH ECHERICHIA FERGUSONII ORGANISM VERY WELL. SHE IS AWARE AND AGREEABLE FOR DISCHARGE HOME TODAY. HER DAUGHTER WILL PROVIDED TRANSPORTATION FOR DISCHARGE. CURRENT CODE STATUS DO NOT RESUSCITATE SUSAN LOPEZ APRN OANH SULLIVAN M.D.
[2017-12-29 14:06] VITALS: BP 173/101; TEMP 97.7
--- NOTE | 2017-12-30 13:04 | PN ---
DATE OF SERVICE: 12/29/17 SUBJECTIVE: The patient resting comfortably, she was examined while sitting up on the side of the bed. She isn't have any diarrhea. Her dizziness has significantly improved. She has been wearing oxygen while she is here which is new for her. Her cough is improved. Intake improved yesterday, was only 2,848 compared with 3,548 the day before. Sodium is the same at 129 however potassium improved at 4.5 REVIEW OF SYSTEMS: CONSTITUTIONAL: No night sweats. No fatigue, malaise, lethargy. No fever or chills. Weakness. HEENT: Eyes: No visual changes. No eye pain. No eye discharge. ENT: No runny nose. No epistaxis. No sinus pain. No sore throat. No odynophagia. No congestion. RESPIRATORY: Cough, no congestion. No hemoptysis. No shortness of breath. CARDIOVASCULAR: No angina symptoms. No CHF symptoms. No atypical chest pain for CAD. No palpitations. No orthopnea. GASTROINTESTINAL: No abdominal pain. No nausea or vomiting. No diarrhea or constipation. No hematemesis. No hematochezia. GENITOURINARY: No urgency. No frequency. No dysuria. No hematuria. No obstructive symptoms. No discharge. No pain. No significant abnormal bleeding. MUSCULOSKELETAL: No musculoskeletal pain; no joint swelling. NEUROLOGICAL: No headache. No neck pain. No syncope. No seizures. No dizziness. PSYCHIATRIC: Not anxious. No depression. No suicidal thoughts. No homicidal thoughts. SKIN: No rash. No lesions. No wounds. ENDOCRINE: No unexplained weight loss. No weight gain. HEMATOLOGIC/LYMPHATIC: No anemia. No purpura. No petechiae. No prolonged or excessive bleeding. No palpable lymph nodes. PHYSICAL EXAMINATION: GENERAL: The patient is alert and oriented times three. HEENT: Head normocephalic, atraumatic. Eyes: Extraocular muscles are intact. Pupils are equal, round and reactive to light and accommodation. Ears: No lesions. Nose appeared normal. Throat: No exudate or erythema. NECK: Supple. No JVD, no carotid bruit. No lymphadenopathy or thyromegaly. LUNGS: Diminished breath sounds. Clear to auscultation. Percussion note normal. Chest symmetrical. HEART: S1, S2, no S3. No murmurs. Irregular heart rate consistent with atrial fibrillation. No cyanosis or clubbing. No ascites. Pulses: Dorsalis pedis and posterior tibial pulses +1 to +2 both sides. ABDOMEN: Soft. Nontender. Bowel sounds active. No CVA tenderness. No mass felt. EXTREMITIES: No edema. Full range of motion of all extremities, equal. NEUROLOGIC: No focal deficit. Cranial nerves II through XII are grossly intact. No headache, no double vision or headache. SKIN: Not dry. Intact. Turgor - normal. LYMPHATIC: No palpable lymph nodes/no lymphedema. MUSCULOSKELETAL: Normal joints with no swelling. Muscle tone is normal. ASSESSMENT: 1. Hypokalemia, resolved 2. Hyponatremia, improving 3. Dizziness, improving 4. Diabetes Mellitus type 2 5. COPD 6. Atrial fibrillation 7. Urinary tract infection PLAN: 1. Discharge her home today as electrolytes are stabilized. 2. Limit fluid intake 3. Will restart her Hyzaar tomorrow 4. Will send her home on Potassium 10meq daily 5. Keflex 500mg three times a day for 7 days for a urinary tract infection 6. Prednisone 10mg twice a day for 5 days for the cough 7. Three step oxygen test 8. PFT prior to discharge. TIME SPENT: More than 30 minutes. Plan and coordination of the patient's care discussed in the presence of nurse. WOOD
--- NOTE | 2017-12-30 13:26 | DS ---
DATE OF SERVICE: 12/29/17 FINAL DIAGNOSIS: HYPOKALEMIA, RESOLVED HYPONATREMIA, IMPROVED DIZZINESS/WEAKNESS, IMPROVED FALLS AT HOME X2 SINUSITIS, IMPROVED HYPERTENSION IMPROVED UTI, ORGANISM JAYSON CAMACHO, TREATED INFLUENZA A, 09/01 ([facility]) CAD ATRIAL FIBRILLATION (ELIQUIS) CHF BY HISTORY LEFT VENTRICULAR HYPERTROPHY, MODERATE BRONCHIAL ASTHMA DM, TYPE 2 NEUROPATHY METABOLIC SYNDROME OSTEOPENIA BILATERAL TOTAL KNEE REPLACEMENTS CHOLECYSTECTOMY HYSTERECTOMY ECHO, 10/28/16 LVH (MODERATE) AND ENLARGED LEFT ATRIAL CAVITY (5.5 CM) STIFF LEFT VENTRICLE WITH LVEF 50% NORMAL VALVES LEFT VENTRICLE SIZE 5.5 CM LAST VITALS: Temp Pulse Resp BP Pulse Ox 97.6 F 69 12 149/86 H 96 TAKE THESE MEDICATIONS AT HOME: Albuterol Sulfate (Proair Hfa) 2 Puffs IH TID Apixaban (Eliquis) 5 mg PO BID [facility] Cephalexin (Keflex) 500 mg PO TID x7 DAYS Losartan/Hydrochlorothiazide (Hyzaar) 50/12.5 mg PO DAILY [facility] Meclizine HCl (Antivert) 25 mg PO TID [facility] Metformin HCl (Glucophage) 500 mg PO BIDWM [facility] Metolazone (Zaroxolyn) 2.5 mg PO TID Omeprazole (Prilosec) 20 mg PO QDAC [facility] Potassium Chloride (Micro-K Cap) 10 meq PO DAILYWM [facility] Prednisone (Prednisone) 20 mg PO BIDWM x5 DAYS Tramadol HCl (Ultram) 50 mg PO TID PRN Verapamil HCl (Calan Sr) 240 mg PO DAILY [facility] MEDICATION CHANGES DURING THIS STAY: Held Hyzaar, Gave Cozaar. Hyzaar to be continued on 12/30/17 Held Metolazone 2.5 mg. To be continued on 01/02/18 See New Prescriptions ALLERGIES: Penicillins Adverse Reaction COLLEEN Inhibitors Adverse Reaction dexamethasone [From Decadron] Adverse Reaction erythromycin base Adverse Reaction loratadine [From Claritin] Adverse Reaction lorazepam [From Ativan] Adverse Reaction olmesartan medoxomil [From Benicar] Adverse Reaction NEW PRESCRIPTIONS: KEFLEX 500 MG, TAKE ONE CAPSULE BY MOUTH THREE TIMES DAILY FOR 7 DAYS PREDNISONE 10 MG, TAKE ONE TABLET BY MOUTH TWICE DAILY FOR 5 DAYS SMOKING: FORMER SMOKER NONE NOW DISEASE SPECIFIC EDUCATION: ELECTROLYTE IMBALANCE DIZZINESS SINUSITIS UTI HYPERTENSION DM, TYPE 2 DIABETIC DIET/ACTIVITY HOME HEALTH REFERRAL FOR NURSING, PT/OT SERVICES [facility] FOR POSSIBLE HOMEMAKING SERVICES [facility] REFERRAL FOR APPROPRIATE DIABETIC DIET HOME MEDICATIONS NEW PRESCRIPTIONS FOLLOW UP PLAN: DISCHARGE HOME TODAY RETURN TO DR. SULLIVAN'S OFFICE FOR FOLLOW UP ON 01/03/18 AT 11 A.M. [facility] WILL CONTACT YOU TO ARRANGE NURSING SERVICES, PHYSICAL THERAPY AND OCCUPATIONAL THERAPY IN YOUR HOME [phone] [facility] WILL CONTACT YOU TO SCHEDULE A VISIT TO DETERMINE IF YOU QUALIFY FOR POSSIBLE HOMEMAKING SERVICES [facility] WILL CONTACT YOU TO SCHEDULE AN APPOINTMENT YOU WILL SEE THE SALES ACCOUNT LEADER ON THE DAYS YOU ARE AT [facility] RESUME YOUR HOME MEDICATIONS PER LIST PROVIDED BY THE NURSING STAFF DO NOT RESTART YOUR ZAROXOLYN TOMORROW. WAIT UNTIL 01/02/18 DO NOT RESTART YOUR HYZAAR (LOSARTAN/HYDROCHLOROTHIAZIDE) UNTIL TUESDAY, DIET: CONSISTENT CARBS INSTRUCTED BY THE SALES ACCOUNT LEADER YOU MAY USE SALT TO SEASON YOUR FOODS LIMIT THE AMOUNT OF LIQUIDS YOU DRINK DAILY TO APPROXIMATELY 2000 ML (2LITERS) ACTIVITY: GET PLENTY OF REST AT HOME. GRADUALLY INCREASE YOUR ACTIVITY ACCORDING TO YOUR [facility]OL[facility]ATION HOSPITAL COURSE: 77 year old female who presented to the emergency room by her family with extreme weakness and fatigue. She was very dizzy and somewhat confused. Her potassium in the emergency room with 2.0 with a sodium of 111. She was started on IV fluids and normal saline at 75cc an hour and started on Potassium 20meq PO 5 times a day along with 20meq in her IV fluids. Over the course of the past several days her Potassium has improved and it is normal today at 4.5. She has been taking 20meq PO daily for the past 2 days. IV fluids were discontinued yesterday. Her sodium remained stable at 129. Carotid scan was done which was normal showing no cause for the dizziness. CT scan of the brain was done in the emergency room which was also normal. U/A was abnormal. Cultures grew for e- coli which was sensitive for Rocephin. She was initially. She had recently been started on Metformin for a new onset Diabetes however she stated that her diarrhea which was about twice a day which was normal for her so we are unsure of the reason for her extreme hypokalemia and hyponatremia other than she has excess oral intake and was Hyzaar. Her Hyzaar was held on admission as her blood pressure was low and again sodium and Potassium were low. Yesterday her blood pressure was elevated and we restarted her on Losartan but held the diuretic. Again her urine was abnormal and culture was positive for e-coli, she was started on Rocephin 1 gram IV daily. She will go home on Keflex 500mg three times a day for the next 7 days. Chest x-ray was normal although she has had worsening shortness of breath while she was here and she doesn't wear oxygen at home. A three step oxygen test was done prior to discharge and she passed. She will not go home with any oxygen. Will send her home on Prednisone 10mg twice a day for 5 days as she has developed a cough and somewhat acute sinusitis while here. Her blood pressure has been controlled with the Losartan. She does have a history of leg edema and we will restart her on her Hyzaar as she was previously when she goes home. She is to go home on a 10meq Potassium supplement daily. She is also instructed to limit her fluid intake. This has been discussed in detail with her. A nutrition consult was also given and talked about diabetic diet. The patient is agreeable to go to the diabetic support group which is new and will meet once a month. She has also agreed to home health to help her around the house and to improve her weakness. She will go home today. Vital are stable; temperature 97.6, heart rate 69, respirations 18, blood pressure 140/86 and pulse ox 96%. She has been eating 100% of her meals. She has also been agreeable to start [facility] as she feels that she is somewhat lonely at home. Again it has been reiterated to limit her fluid intake and not drink excessively. She will followup with me early next week with a repeat CMP prior to her appointment. TIME SPENT: More than 60 minutes. WOOD
== END 2017-12-29 14:40 | disposition home or self-care (01) | DRG 640 ==
LOC: ED 21:43 → SCU 12-25 01:40
PROVIDERS: ADMIT Internal Medicine; ATTEND Internal Medicine
DX: E87.1 Hypo-osmolality and hyponatremia (principal); J18.1 Lobar pneumonia, unspecified organism; J98.11 Atelectasis; N39.0 Urinary tract infection, site not specified; E87.6 Hypokalemia; R53.1 Weakness; R42 Dizziness and giddiness; R09.02 Hypoxemia; R06.02 Shortness of breath; I48.91 Unspecified atrial fibrillation; E11.9 Type 2 diabetes mellitus without complications; I51.7 Cardiomegaly; J44.9 Chronic obstructive pulmonary disease, unspecified; J01.90 Acute sinusitis, unspecified; I10 Essential (primary) hypertension; I25.10 Atherosclerotic heart disease of native coronary artery without angina pectoris; I50.9 Heart failure, unspecified; J45.909 Unspecified asthma, uncomplicated; G62.9 Polyneuropathy, unspecified; E88.81 Metabolic syndrome and other insulin resistance; M85.80 Other specified disorders of bone density and structure, unspecified site; B96.89 Other specified bacterial agents as the cause of diseases classified elsewhere; H83.2X9 Labyrinthine dysfunction, unspecified ear; R26.2 Difficulty in walking, not elsewhere classified; W19.XXXA Unspecified fall, initial encounter; Y92.009 Unspecified place in unspecified non-institutional (private) residence as the place of occurrence of the external cause; Z79.84 Long term (current) use of oral hypoglycemic drugs; Z79.01 Long term (current) use of anticoagulants
CPT/HCPCS: 36415; 80053; 81001; 82550; 82553; 82803; 82962; 83036; 83525; 83880; 84484; 84681; 85025; 85379; 87086; 87186; 93005; 93010; 94640; 94761; 96365; 96366; 96375; 97802; 99285

== ENCOUNTER 2018-01-10 09:16 | Outpatient (RCR) | END 2018-01-12 23:59 | LOC: NEWBEG 09:16 | PROVIDERS: ATTEND Psychiatry & Neurology Psychiatry | DX: Z00.00 Encounter for general adult medical examination without abnormal findings (principal) | CPT/HCPCS: 90792; 90853 ==

== ENCOUNTER 2018-01-23 08:58 | Outpatient (CLI) ==
[2018-01-23 09:52] VITALS: BMI 46.4
== END 2018-01-23 08:59 | disposition home or self-care (01) ==
LOC: DIETCN 08:58
PROVIDERS: ATTEND Nurse Practitioner Family
DX: E11.9 Type 2 diabetes mellitus without complications (principal)

== ENCOUNTER 2018-02-08 10:00 | Outpatient (RCR) | END 2018-02-11 23:59 | LOC: NEWBEG 10:00 | PROVIDERS: ATTEND Psychiatry & Neurology Psychiatry | DX: F41.1 Generalized anxiety disorder (principal); F33.1 Major depressive disorder, recurrent, moderate | CPT/HCPCS: 90792; 90853; 99213 ==

== ENCOUNTER 2018-03-13 10:00 | Outpatient (RCR) | END 2018-03-14 23:59 | LOC: NEWBEG 10:00 | PROVIDERS: ATTEND Psychiatry & Neurology Psychiatry | DX: F41.1 Generalized anxiety disorder (principal); F33.1 Major depressive disorder, recurrent, moderate | CPT/HCPCS: 90853; 99213 ==

== ENCOUNTER 2018-04-14 10:00 | Outpatient (RCR) | END 2018-04-14 23:59 | LOC: NEWBEG 10:00 | PROVIDERS: ATTEND Psychiatry & Neurology Psychiatry | DX: F41.1 Generalized anxiety disorder (principal); F33.1 Major depressive disorder, recurrent, moderate | CPT/HCPCS: 90853; 99213 ==

== ENCOUNTER 2018-05-12 10:00 | Outpatient (RCR) | payer OTHER | END 2018-05-14 23:59 | LOC: NEWBEG 10:00 | PROVIDERS: ATTEND Psychiatry & Neurology Psychiatry | DX: F41.1 Generalized anxiety disorder (principal); F33.1 Major depressive disorder, recurrent, moderate | CPT/HCPCS: 90853; 99213 ==

== ENCOUNTER 2018-06-12 10:00 | Outpatient (RCR) | END 2018-06-14 23:59 | LOC: NEWBEG 10:00 | PROVIDERS: ATTEND Psychiatry & Neurology Psychiatry | DX: F41.1 Generalized anxiety disorder (principal); F33.1 Major depressive disorder, recurrent, moderate | CPT/HCPCS: 90853; 99213 ==

== ENCOUNTER 2018-11-20 11:54 | Outpatient (CLI) | payer OTHER ==
--- NOTE | 2018-11-20 14:36 | MRI ---
EXAM: MRI brain with and without contrast. TECHNIQUE: Multiplanar multisequence MRI brain was performed with and without contrast. COMPARISON: CT head from 12/24/2017 HISTORY: Dizziness and ataxia FINDINGS: There is no acute intracranial abnormality. Specifically there is no hemorrhage or mass o r hydrocephalus or subdural or other abnormal extra-axial fluid collection. There is no diffusion re striction, chronic cortical ischemia or demyelination. There is no abnormal signal in the subarachno id spaces to suggest altered protein content. Gradient echo sequence demonstrates no chronic micro-h emorrhages or abnormal calcifications. There is modest bilateral left greater than right supratentor ial chronic small vessel white matter ischemia. There is moderate generalized atrophy. There is no a bnormal enhancement. Brain parenchyma, ventricles and sulci are otherwise normal. The pituitary gland is not enlarged. The corpus callosum demonstrates normal morphology. There is n o migrational anomaly or tonsillar ectopia. The cavernous sinuses are symmetric. No focal abnormali ty of the cranial nerves is present. The flow voids of the [place] are normal with no evide nce for focal stenosis, slow flow, aneurysm or vascular malformation. The dural sinuses are widely p atent. The mastoid air cells show no significant fluid. The paranasal sinuses demonstrate some membrane thic kening but no air fluid levels. The globes and orbits are intact with no evidence for mass lesion, in flammation or enlarged extraocular muscles. There are no orbital stigmata of intracranial hypertensi on. The superior ophthalmic veins are symmetric and not enlarged. There are no acute calvarial abno rmalities. IMPRESSION: 1. No acute intracranial abnormality. Specifically there is no abnormal enhancement, evolving ische fabrizio or hemorrhage or mass.
== END 2018-11-20 11:55 | disposition home or self-care (01) ==
LOC: RAD 11:54
PROVIDERS: ATTEND Internal Medicine
DX: R42 Dizziness and giddiness (principal); R27.0 Ataxia, unspecified
CPT/HCPCS: 36415; 82565

== ENCOUNTER 2021-04-10 14:00 | Inpatient (IN) ==
[2021-04-10 14:56] LABS: BEecf 14.2 (-2.0-3.0); COHb 2.4 (0.5-1.5); HCO3 37.4 (21-28); MetHb 0.5 (0-1.5); TCO2 38.9 (19-24); sO2 88.4 % (94-98); tHb 12.2 g/dl (11.7-17.4)
[2021-04-10 15:12] LABS: BORDETELLA PARAPERTUSSIS (PCR) NOT DETECTED (NOT DETECT); BORDETELLA PERTUSSIS (PCR) NOT DETECTED (NOT DETECT); CHLAMYDIA PNEUMONIAE (PCR) NOT DETECTED (NOT DETECT); CORONAVIRUS 229E (PCR) NOT DETECTED (NOT DETECT); CORONAVIRUS HKU1 (PCR) NOT DETECTED (NOT DETECT); CORONAVIRUS NL63 (PCR) NOT DETECTED (NOT DETECT); CORONAVIRUS OC43 (PCR) NOT DETECTED (NOT DETECT); HUMAN METAPNEUMOVIRUS (PCR) NOT DETECTED (NOT DETECT); HUMAN RHINOVIRUS/ENTEROV (PCR) NOT DETECTED (NOT DETECT); INFLUENZA B (PCR) NOT DETECTED (NOT DETECT); MYCOPLASMA PNEUMONIAE (PCR) NOT DETECTED (NOT DETECT); PARAINFLUENZA VIRUS 1 (PCR) NOT DETECTED (NOT DETECT); PARAINFLUENZA VIRUS 2 (PCR) NOT DETECTED (NOT DETECT); PARAINFLUENZA VIRUS 3 (PCR) NOT DETECTED (NOT DETECT); PARAINFLUENZA VIRUS 4 (PCR) NOT DETECTED (NOT DETECT); RESPIRATORY SYNCYTIAL V (PCR) NOT DETECTED (NOT DETECT); SARS_COV_2 (PCR) NOT DETECTED (NOT DETECT)
[2021-04-10 15:51] LABS: BASOPHILS % (AUTO) 0.5 % (0.0-3.0); EOSINOPHILS # (AUTO) 0.2 K/ul (0.0-0.7); EOSINOPHILS % (AUTO) 1.7 % (0.0-7.0); HEMATOCRIT 36.2 % (37.0-47.0); HEMOGLOBIN 11.5 g/dl (12.0-16.0); IMMATURE GRANULOCYTE % (AUTO) 0.3 % (0.0-5.0); LYMPHOCYTES # (AUTO) 0.7 K/uL (0.60-3.4); LYMPHOCYTES % (AUTO) 8.6 (10.0-50.0); MEAN CORPUSCULAR HEMOGLOBIN 24.9 pg (27.0-31.0); MEAN CORPUSCULAR HGB CONC 31.8 (31.8-35.4); MEAN CORPUSCULAR VOLUME 78.5 fl (81.0-99.0); MONOCYTES # (AUTO) 0.8 K/uL (0.4-2.0); NEUTROPHILS # (AUTO) 6.9 K/ul (2.0-6.9); NEUTROPHILS % (AUTO) 79.9 % (42.2-75.2); PLATELET COUNT 225 10^3/uL (140-440); RDW COEFFICIENT OF VARIATION 18.1 % (11.6-14.8); RED BLOOD COUNT 4.61 10^6/ul (4.20-5.40); WHITE BLOOD COUNT 8.58 K/ul (4.6-10.2)
[2021-04-10 16:00] LABS: ADENOVIRUS (PCR) NOT DETECTED (NOT DETECT)
[2021-04-10 16:19] LABS: ALANINE AMINOTRANSFERASE 15.3 U/L (0-35); ALKALINE PHOSPHATASE 46.5 U/L (53-141); ASPARTATE AMINO TRANSFERASE 28.1 U/L (14-36); BILIRUBIN,TOTAL 0.83 mg/dL (0.2-1.3); BLOOD UREA NITROGEN 13.7 mg/dL (7-17); CALCIUM 8.61 mg/dL (8.4-10.2); CARBON DIOXIDE 35.4 mmol/L (22-30.0); CHLORIDE 87.7 mmol/L (98-107); CREATININE 0.69 mg/dL (0.60-1.30); GLUCOSE 113.7 mg/dL (74-106); SODIUM 132.7 mmol/L (134.5-145); TOTAL PROTEIN 6.87 g/dL (6.3-8.2)
--- NOTE | 2021-04-10 16:31 | DI ---
EXAM: Chest one view HISTORY: Shortness of breath, congestion COMPARISON: None TECHNIQUE: Single view of the chest was performed FINDINGS: Extensive bilateral nodular opacities and/or nodular infiltrates. Small to moderate right and possibly small left pleural effusion. Heart is enlarged. Mediastinal contour normal. No visib le pneumothorax. IMPRESSION: 1. Unexpected finding: Extensive bilateral nodular opacities and/or nodular infiltrates. Malignanc y/metastasis, pneumonia, and atypical infectious etiology within the differential diagnosis. Recomme nd correlation with CT chest. 2. Right and possibly left pleural effusions. 3. Cardiomegaly
[2021-04-10 16:38] LABS: TROPONIN I < 0.012 ng/ml (0.0000-0.120)
[2021-04-10 16:39] LABS: POTASSIUM 2.64 mmol/L (3.5-5.1)
[2021-04-10] MEDS ORDERED: K-DUR PO ONE (17:09)
[2021-04-10] MEDS ORDERED: LOVENOX SUBCUT SCH (19:30)
[2021-04-10] MEDS ORDERED: MICRO-K CAP PO SCH (19:30)
--- NOTE | 2021-04-10 19:35 | ED.PDOC ---
General ED Provider: Dr. LIZ BURCH Chief Complaint: Non-specific Complaint Stated Complaint: Feeling poorly having a productive cough. Received 2nd Covid Vaccine 2 weeks ago and has not felt well since then, weak unsteady balance and had fallen twice this week. Experiences dyspnea with activity and at rest Time Seen by Provider: 04/10/21 14:07 Mode of Arrival: Ambulance Information Source: Patient Exam Limitations: Clinical condition Primary Care Provider: OANH ROSE Nursing and Triage Documentation Reviewed and Agree: Yes Does patient meet sepsis criteria?: No System Inflammatory Response Syndrome: Not Applicable Sepsis Protocol: For patient's 13 years and over: Temp is 96.8 and below OR 101 and greater Pulse >90 BPM Resp >20/minute Acutely Altered Mental Status Are patient's symptoms suggestive of a new infection, such as: -Pneumonia -Skin, Soft Tissue -Endocarditis -UTI -Bone, Joint Infection -Implantable Device -Acute Abdominal Infection -Wound Infection -Meningitis -Blood Stream Catheter Infection -Unknown Respiratory Complaint Exam Respiratory Complaint/Exam Onset/Duration: 1 week Symptoms Are: Worse Timing: Intermittent Initial Severity: Mild Current Severity: Moderate Location: Throat and Chest Character: Reports Productive cough Aggravating: Reports Exertion and URI Alleviating: Reports Bronchodilators and Upright position Associated Signs and Symptoms: Reports Dyspnea, Chest pain, Pleuritic chest pain, Wheezing and Hoarseness Related History: Reports Similar episode Related Surgical History: Reports None Pulmonary Embolism Risk Factors: None Cardiac Risk Factors: Reports None Pseudomonas Risk Factors: Reports None Tuberculosis Risk Factors: Reports None Status Asthmaticus Risk Factors: Reports None Home Oxygen Use: No Recent Stress Test: No Recent Echo/LV Function: No Current Antibiotic Use: No Current Asthma Medication Use: No Respiratory Distress: None Inadequate Respiratory Effort: Yes Dysphagia Present: No Stridor Present: No JVD Present: No Accessory Muscle Use: No Retractions: Not Present Diminished Breath Sounds: Yes Prolonged Respiration: Inspiratory phase Sinus Tenderness: None Grunting Respirations: No Kussmaul Respirations: No Differential Diagnoses: Airway Obstruction, Chest Wall Pain, COPD Exacerbation and Pneumonia Non-Traumatic Chest Pain Syncope: EKG Performed Review of Systems Review Of Systems Constitutional: Reports No symptoms Eyes: Reports No symptoms Ears, Nose, Mouth, Throat: Reports No symptoms Respiratory: Reports Cough, Short of air and Wheezing Cardiac: Reports No symptoms GI: Reports No symptoms, Abdomen distended, Poor appetite and Poor fluid intake : Reports No symptoms Musculoskeletal: Reports No symptoms Skin: Reports No symptoms Neurological: Reports Anxiety Endocrine: Reports No symptoms Hematologic/Lymphatic: Reports No symptoms All Other Systems: Reviewed and Negative [facility] Medical History (Updated 04/10/21 @ 17:11 by LIZ BURCH DO) Asthma Atrial fibrillation CAD (coronary artery disease) CHF (congestive heart failure) Diabetes mellitus, type 2 GERD (gastroesophageal reflux disease) Hypertension Left ventricular hypertrophy Neuropathy Osteopenia Sensorineural hearing loss (SNHL) of both ears Family History (Updated 03/04/20 @ 14:31 by JHONNY MURRAY) Mother Hearing loss Social History (Updated 03/04/20 @ 14:32 by JHONNY MURRAY) Smoking and tobacco status: Never smoker Alcohol intake: never Substance use type: does not use Housing: house skilled nursing: No Current occupational status: retired Surgical History (Updated 11/19/20 @ 11:09 by YIFAN COLBERT) History of cholecystectomy History of hysterectomy History of total bilateral knee replacement (TKR) Physical Exam Physical Exam Appearance: Reports Ill-appearing and Obese Ill-appearing: Mild Pain Distress: Moderate Eyes: Reports ANA, EOMI, Conjunctiva clear and Conjunctiva pale ENT: Reports Ears normal, Nose normal and Oropharynx normal Neck: Supple Respiratory: Reports Airway patent, Breath sounds diminished, Respirations nonlabored, Crackles and Wheezes Cardiovascular: Reports No rub, No murmur and Irregular rhythm GI/: Reports Soft, Tender and Bowel sounds hyperactive Musculoskeletal: Reports Normal strength, ROM intact, No edema and No calf tenderness Skin: Reports Warm, Dry and Normal color Neurological: Reports Sensation intact, Motor intact, Reflexes intact, Cranial nerves intact, Alert and Oriented Psychiatric: Reports Affect appropriate, Mood appropriate and Anxious Interpretation Radiology Interpretation Exam Interpreted: Portable CXR (Unexpected finding: Extensive bilateral nodular opacities and/or nodular infiltrates. Malignancy/metastasis, pneumonia, and atypical infectious etiology within the differential diagnosis. Recommend correlation with CT chest. 2. Right and possibly left pleural effusions. 3. Cardiomegaly) Physician Notification Case Discussed Physician Notified: Dr Rose-Admit with orders Time of Notification: 16:30 Critical Care Note Critical Care Note Total Critical Care Time (mins): 60 Course Course Hematology/Chemistry: 04/10/21 15:47 04/10/21 15:47 Orders, Labs, Meds: Lab Review 04/10/21 04/10/2121 14:50 14:50 15:29 WBC RBC Hgb Hct MCV MCH MCHC RDW Coeff of Melissa Plt Count Immature Gran % (Auto) Neut % (Auto) Lymph % (Auto) Clinch % (Auto) Eos % (Auto) Baso % (Auto) Neut # (Auto) Lymph # (Auto) Clinch # (Auto) Eos # (Auto) Baso # (Auto) Immature Gran # (Auto) Puncture Site Rrad Base Excess 14.2 H O2 Saturation 88.4 L ABG pH 7.50 H ABG pCO2 48.0 H ABG pO2 50.0 L* ABG HCO3 37.4 H ABG Total CO2 38.9 H [place] Test Pos Hemoglobin 0.5 Oxyhemoglobin 84.0 L Carboxyhemoglobin 2.4 H Total Hemoglobin 12.2 FiO2 % 21.0 Sodium Potassium Chloride Carbon Dioxide Anion Gap BUN Creatinine Estimated GFR (MDRD) BUN/Creatinine Ratio Glucose Calcium Total Bilirubin AST ALT Alkaline Phosphatase POC Venous Troponin I 0.01 Troponin I Total Protein Albumin Globulin Albumin/Globulin Ratio Adenovirus (PCR) Not detected B. pertussis DNA (PCR) Not detected B.parapertussis DNA PCR Not detected C. pneumoniae DNA (PCR) Not detected Coronavirus OC43 (PCR) Not detected Coronavirus HKU1 (PCR) Not detected Coronavirus 229E (PCR) Not detected Coronavirus NL63 (PCR) Not detected Human Metapneumovir PCR Not detected Influenza Type A (PCR) Not detected Influenza B (RT-PCR) Not detected M. pneumoniae (PCR) Not detected Parainfluenza 1 (PCR) Not detected Parainfluenza 2 (PCR) Not detected Parainfluenza 3 (PCR) Not detected Parainfluenza 4 (PCR) Not detected RSV (PCR) Not detected Entero/Rhino (PCR) Not detected SARS-CoV-2 (PCR) Not detected 04/10/21 04/10/21 15:47 15:47 WBC 8.58 RBC 4.61 Hgb 11.5 L Hct 36.2 L MCV 78.5 L MCH 24.9 L MCHC 31.8 RDW Coeff of Melissa 18.1 H Plt Count 225 Immature Gran % (Auto) 0.3 Neut % (Auto) 79.9 H Lymph % (Auto) 8.6 L Clinch % (Auto) 9.0 Eos % (Auto) 1.7 Baso % (Auto) 0.5 Neut # (Auto) 6.9 Lymph # (Auto) 0.7 Clinch # (Auto) 0.8 Eos # (Auto) 0.2 Baso # (Auto) 0.0 Immature Gran # (Auto) 0.0 Puncture Site Base Excess O2 Saturation ABG pH ABG pCO2 ABG pO2 ABG HCO3 ABG Total CO2 [place] Test Hemoglobin Oxyhemoglobin Carboxyhemoglobin Total Hemoglobin FiO2 % Sodium 132.7 L Potassium 2.64 L* Chloride 87.7 L Carbon Dioxide 35.4 H Anion Gap 12.24 BUN 13.7 Creatinine 0.69 Estimated GFR (MDRD) 82.00 BUN/Creatinine Ratio 19.85 Glucose 113.7 H Calcium 8.61 Total Bilirubin 0.83 AST 28.1 ALT 15.3 Alkaline Phosphatase 46.5 L POC Venous Troponin I Troponin I < 0.012 Total Protein 6.87 Albumin 3.80 Globulin 3.07 Albumin/Globulin Ratio 1.23 Adenovirus (PCR) B. pertussis DNA (PCR) B.parapertussis DNA PCR C. pneumoniae DNA (PCR) Coronavirus OC43 (PCR) Coronavirus HKU1 (PCR) Coronavirus 229E (PCR) Coronavirus NL63 (PCR) Human Metapneumovir PCR Influenza Type A (PCR) Influenza B (RT-PCR) M. pneumoniae (PCR) Parainfluenza 1 (PCR) Parainfluenza 2 (PCR) Parainfluenza 3 (PCR) Parainfluenza 4 (PCR) RSV (PCR) Entero/Rhino (PCR) SARS-CoV-2 (PCR) Orders Category Date Time Status ABG DRAW REQUEST Stat CARDIO 04/10/21 14:48 Completed EKG-(ED ONLY) Stat CARDIO 04/10/21 14:48 Completed O2 [ED APPLY O2] .ONCE EMERGENCY 04/10/21 15:28 Active ABG COOX Stat LAB 04/10/21 14:50 Completed BLOOD CULTURE (ED ONLY) Stat LAB 04/10/21 15:47 Received CBC W/ AUTO DIFF Stat LAB 04/10/21 15:47 Completed CMP [COMPREHENSIVE METABOLIC PANEL] Stat LAB 04/10/21 15:47 Completed RESPIRATORY PANEL 2.1 (PCR) Stat LAB 04/10/21 14:50 Completed TROPONIN I Stat LAB 04/10/21 15:47 Completed UA [URINALYSIS C & S IF INDICATED] Stat LAB 04/10/21 15:30 Uncollected Potassium Chloride [K-Dur] MEDS 04/10/21 17:09 Discontinued 40 meq PO ONCE ONE CHEST, 1V AP ONLY Stat RADS 04/10/21 15:28 Completed Medications Generic Name Dose Route Start Last Admin Trade Name Freq PRN Reason Stop Dose Admin Acetaminophen 650 mg 04/10/21 19:18 Acetaminophen 325 Mg Tablet PO Q4H PRN Fever >101or mild pain Albuterol Sulfate 2 puff 04/10/21 20:00 Albuterol Sulfate (Ventolin Hfa) 18 Gm 1 Puff With Spacer IH RTQID LAZARO Albuterol Sulfate 2 puff 04/10/21 21:00 Albuterol Sulfate (Ventolin Hfa) 18 Gm 1 Puff With Spacer IH TID LAZARO Apixaban 5 mg 04/10/21 21:00 Apixaban 5 Mg Tab PO BID LAZARO Enoxaparin Sodium 40 mg 04/10/21 19:30 Enoxaparin Sodium 40 Mg/0.4 Ml Syr SUBCUT DAILY [facility] Fluticasone Propionate 2 spray 04/11/21 09:00 Fluticasone Propionate 16 Gm Nasal [place] LAYA DAILY [facility] HCTZ/Losartan Potassium 0.5 tab 04/11/21 09:00 Losartan/Hydrochlorothiazide 50/12.5 Mg Tab PO DAILY [facility] Hydrocortisone Sodium Succinate 125 mg 04/10/21 19:30 Hydrocortisone Sod Succ/Pf 100 Mg/2 Ml Vial IVP Q8HR LAZARO CEFTRIAXONE/D5W 1 GM PREMIX 1 gm in 50 mls @ 75 mls/hr 04/10/21 19:30 Rocephin 1 Gm/50 Ml D5w IV 04/13/21 19:29 DAILY [facility] Sodium Chloride 1,000 mls @ 75 mls/hr 04/10/21 19:30 Sodium Chloride IV DAILY [facility] Ipratropium Vashon 2 puff 04/11/21 00:00 Ipratropium [place]on 12.9 Gm Hfa Inhaler Per Puff With Spacer IH RTQ6H [facility] Levofloxacin 750 mg 04/10/21 19:30 Levofloxacin 500 Mg Tablet PO 04/13/21 19:29 QDAC LAZARO Metformin HCl 500 mg 04/10/21 21:00 Metformin Hcl 500 Mg Tablet PO BID [facility] Metolazone 2.5 mg 04/10/21 19:30 Metolazone 2.5 Mg Tablet PO MOWEFR LAZARO Non-Formulary Medication 20 mg 04/11/21 09:00 Omeprazole Magnesium [Prilosec Otc] PO DAILY [facility]O Potassium Chloride 10 meq 04/10/21 19:30 Potassium Chloride 10 Meq Capsule.Er PO DAILY LAZ[facility]O Potassium Chloride 20 meq 04/11/21 08:30 Potassium Chloride 20 Meq Tab PO BIDWM LAZARO Tramadol HCl 50 mg 04/10/21 19:21 Tramadol Hcl 50 Mg Tablet PO TID PRN Pain Verapamil HCl 240 mg 04/11/21 09:00 Verapamil Hcl 120 Mg Tablet.Er PO DAILY LAZARO Discontinued Medications Generic Name Dose Route Start Last Admin Trade Name Freq PRN Reason Stop Dose Admin Potassium Chloride 40 meq 04/10/21 17:09 04/10/21 17:25 Potassium Chloride 20 Meq Tab PO 04/10/21 17:10 40 meq ONCE ONE Administration Vital Signs: Temp Pulse Resp BP Pulse Ox 04/10/21 14:01 99.8 F H 105 H 20 124/68 88 L Discharge Plan Discharge Patient Disposition: ADMITTED INPATIENT Discharge Problem: Pneumonia, Pulmonary nodule, Dehydration, Acute hypokalemia ED Provider: LIZ BURCH Condition: Fair Physician Progress Note: []Explained to patient findings/recommendations
[2021-04-10] MEDS: SOLU-CORTEF 100 MG IVP SCH ×2 (20:14→21:53)
[2021-04-10] MEDS: SODIUM CHLORIDE 1,000 ML IV SCH (20:15)
[2021-04-10] MEDS: ROCEPHIN 1 GM/50 ML D5W 1 GM/50 ML BAG IV SCH (20:15)
--- NOTE | 2021-04-10 20:52 | CT ---
EXAM: CT of the chest with and without contrast History: Pulmonary nodules. Comparison: CT abdomen pelvis 04/10/2021, chest CT 12/24/2017 Technique: Multiplanar CT images through the thorax were obtained with and without the administratio n of IV contrast. Findings: Heart is enlarged. Great vessels are unremarkable. No axillary lymphadenopathy. Multipl e enlarged mediastinal lymph nodes measuring up to 2.5 cm. Hilar lymphadenopathy measuring 2.9 cm on the right and 1.8 cm on the left. Numerous metastatic bilateral lung nodules with the largest on th e right measuring 2.1 cm and the largest on the left measuring 2.2 cm. There is interlobular septal thickening. Small to moderate right pleural effusion and small left pleural effusion. No pneumothor ax. Right basilar atelectasis or pneumonia. For details in the upper abdomen, please see dedicated CT abdomen pelvis done on the same day. No acute osseous abnormalities. Impression: 1. Multiple metastatic lung nodules. 2. Metastatic mediastinal and bilateral hilar lymphadenopathy. 3. Cardiomegaly with nodular interlobular septal thickening could represent edema or represent carci nomatosis. 4. Right greater than left bilateral pleural effusions. 5. Right basilar atelectasis and/or pneumonia All CT scans are performed using dose optimization techniques as appropriate to the performed exam an d include at least one of the following: Automated exposure control, adjustment of the mA and/or kV according t o size, and the use of iterative reconstruction technique.
[2021-04-10] MEDS ORDERED: VENTOLIN HFA (PER PUFF-WITH SPACER) IH SCH (21:00)
--- NOTE | 2021-04-10 21:00 | CT ---
EXAM: CT scan abdomen pelvis with without contrast HISTORY: Nausea vomiting COMPARISON: None. FINDINGS: Helically acquired axial images were obtained through the abdomen pelvis both before and a fter uneventful administration intravenous contrast 3-mm collimation. Sagittal and coronal reconstru ctions were imaged and reviewed.. Numerous pulmonary nodules are noted bilaterally. There is a small right pleural effusion with right middle lobe and lower lobe consolidation.. There is a tiny left pl eural effusion with adjacent consolidation. There has been prior cholecystectomy. There is fatty in filtration noted throughout the liver. The pancreas spleen and adrenal glands have normal enhanced C T appearance.. The kidneys excrete contrast in a normal fashion bilaterally. There is a simple cyst interpolar region left kidney. There has been prior hysterectomy. There is diverticulosis without diverticulitis. There are prominent air and fluid filled loops of small bowel within the abdomen and upper pelvis which may be related to ileus versus is "gastroenteritis. There is normal-appearing bl adder . There is no evidence of ascites.. Bone windows reveals no lytic or blastic lesions. IMPRESSION: Innumerable basilar pulmonary nodules Small bilateral pleural effusions with bibasilar consolidation right greater than left. Prior cholecystectomy. Diverticulosis without diverticulitis. Prior hysterectomy. Prominent small bowel which may be related to ileus versus gastroenteritis All CT scans are performed using dose optimization techniques as appropriate to the performed exam an d include at least one of the following: Automated exposure control, adjustment of the mA and/or kV according t o size, and the use of iterative reconstruction technique.
[2021-04-10] MEDS: LEVAQUIN PO SCH (21:18)
[2021-04-10] MEDS: GLUCOPHAGE PO SCH ×2 (21:21→21:52)
[2021-04-10] MEDS: ZAROXOLYN PO SCH (21:21)
[2021-04-10 22:16] VITALS: BMI 39.4
[2021-04-10] MEDS: VENTOLIN HFA (PER PUFF-WITH SPACER) IH SCH (23:05)
[2021-04-10] MEDS: ATROVENT HFA INHALER (PER PUFF-WITH SPACER) IH SCH (23:05)
[2021-04-11] MEDS ORDERED: ATROPINE SULFATE PFS IVP PRN (01:55)
[2021-04-11] MEDS ORDERED: NITROSTAT SL PRN (01:55)
[2021-04-11 02:39] LABS: CREATINE KINASE 47.6 U/L (30-135)
[2021-04-11 02:52] LABS: TROPONIN I < 0.012 ng/ml (0.0000-0.120)
[2021-04-11] MEDS: SOLU-CORTEF 100 MG IVP SCH ×3 (04:05→20:45)
[2021-04-11] MEDS: VENTOLIN HFA (PER PUFF-WITH SPACER) IH SCH ×4 (04:40→19:50)
[2021-04-11] MEDS: ATROVENT HFA INHALER (PER PUFF-WITH SPACER) IH SCH ×3 (04:40→19:50)
[2021-04-11] MEDS: LEVAQUIN PO SCH (05:43)
[2021-04-11 05:48] LABS: BASOPHILS % (AUTO) 0.2 % (0.0-3.0); EOSINOPHILS % (AUTO) 0.1 % (0.0-7.0); HEMATOCRIT 36.6 % (37.0-47.0); HEMOGLOBIN 11.7 g/dl (12.0-16.0); IMMATURE GRANULOCYTE % (AUTO) 0.4 % (0.0-5.0); LYMPHOCYTES # (AUTO) 0.4 K/uL (0.60-3.4); LYMPHOCYTES % (AUTO) 4.7 (10.0-50.0); MEAN CORPUSCULAR HEMOGLOBIN 25.3 pg (27.0-31.0); MONOCYTES # (AUTO) 0.5 K/uL (0.4-2.0); MONOCYTES % (AUTO) 5.6 (0-10); NEUTROPHILS # (AUTO) 7.6 K/ul (2.0-6.9); PLATELET COUNT 241 10^3/uL (140-440); RDW COEFFICIENT OF VARIATION 17.8 % (11.6-14.8); RED BLOOD COUNT 4.63 10^6/ul (4.20-5.40); WHITE BLOOD COUNT 8.55 K/ul (4.6-10.2)
[2021-04-11 06:05] LABS: ALANINE AMINOTRANSFERASE 22.5 U/L (0-35); ALBUMIN 3.61 g/dL (3.5-5.0); ALKALINE PHOSPHATASE 46.2 U/L (53-141); ASPARTATE AMINO TRANSFERASE 32.5 U/L (14-36); BILIRUBIN,TOTAL 0.6 mg/dL (0.2-1.3); BLOOD UREA NITROGEN 14.2 mg/dL (7-17); CALCIUM 8.41 mg/dL (8.4-10.2); CARBON DIOXIDE 36.1 mmol/L (22-30.0); CHLORIDE 88.8 mmol/L (98-107); CREATININE 0.72 mg/dL (0.60-1.30); GLUCOSE 134.4 mg/dL (74-106); MAGNESIUM 1.93 mg/dL (1.6-2.3); POTASSIUM 2.96 mmol/L (3.5-5.1); SODIUM 133.9 mmol/L (134.5-145); TOTAL PROTEIN 6.71 g/dL (6.3-8.2)
[2021-04-11] MEDS: CALAN SR PO SCH (09:07)
[2021-04-11] MEDS: PRILOSEC PO SCH (09:07)
[2021-04-11] MEDS: HYZAAR 50-12.5 MG TAB PO SCH (09:07)
[2021-04-11] MEDS: FLONASE NAS SCH (09:08)
[2021-04-11] MEDS: ROCEPHIN 1 GM/50 ML D5W 1 GM/50 ML BAG IV SCH (09:09)
[2021-04-11] MEDS: MICRO-K CAP PO SCH (09:10)
[2021-04-11] MEDS: K-DUR PO SCH ×2 (09:32→17:23)
[2021-04-11] MEDS: ELIQUIS PO SCH ×2 (09:33→20:44)
[2021-04-11] MEDS: NYSTOP POWDER TP SCH ×3 (09:57→20:46)
[2021-04-11 10:21] LABS: CREATINE KINASE 52.2 U/L (30-135)
[2021-04-11 10:46] LABS: TROPONIN I < 0.012 ng/ml (0.0000-0.120)
[2021-04-11] MEDS: SODIUM CHLORIDE 1,000 ML IV SCH (11:08)
[2021-04-11 13:10] LABS: ABG O2 HGB 90.9 % (95-100); ABG PH 7.49 (7.35-7.45); BEecf 12.5 (-2.0-3.0); COHb 2.4 (0.5-1.5); HCO3 35.8 (21-28); MetHb 0.6 (0-1.5); TCO2 37.2 (19-24); sO2 91.9 % (94-98)
[2021-04-12] MEDS: ELIQUIS PO SCH ×3 (00:06→20:24)
[2021-04-12 00:17] LABS: BILIRUBIN,URINE Negative (NEGATIVE); CLARITY,URINE Clear (CLEAR); COLOR,URINE Yellow (YELLOW); GLUCOSE, URINE (UA) Negative (NEGATIVE); KETONES,URINE Negative (NEGATIVE); LEUKOCYTE ESTERASE ,URINE Negative (NEGATIVE); NITRITE,URINE Negative (NEGATIVE); PH,URINE 5.5 (5-9); PROTEIN,URINE Negative (NEGATIVE); URINE, BLOOD Negative (NEGATIVE); UROBILINOGEN,URINE 0.2 (0.2)
[2021-04-12] MEDS: ULTRAM PO PRN ×3 (01:43→22:09)
[2021-04-12] MEDS: SODIUM CHLORIDE 1,000 ML IV SCH ×3 (01:59→17:34)
[2021-04-12] MEDS: ATROVENT HFA INHALER (PER PUFF-WITH SPACER) IH SCH ×4 (05:05→20:00)
[2021-04-12] MEDS: VENTOLIN HFA (PER PUFF-WITH SPACER) IH SCH ×4 (05:05→20:00)
[2021-04-12] MEDS: SOLU-CORTEF 100 MG IVP SCH ×3 (05:44→20:25)
[2021-04-12] MEDS: LEVAQUIN PO SCH (05:45)
[2021-04-12 05:50] LABS: BASOPHILS % (AUTO) 0.1 % (0.0-3.0); EOSINOPHILS % (AUTO) 0.1 % (0.0-7.0); HEMATOCRIT 35.1 % (37.0-47.0); HEMOGLOBIN 11.2 g/dl (12.0-16.0); IMMATURE GRANULOCYTE % (AUTO) 0.4 % (0.0-5.0); LYMPHOCYTES # (AUTO) 0.5 K/uL (0.60-3.4); LYMPHOCYTES % (AUTO) 4.7 (10.0-50.0); MEAN CORPUSCULAR HEMOGLOBIN 25.3 pg (27.0-31.0); MEAN CORPUSCULAR HGB CONC 31.9 (31.8-35.4); MEAN CORPUSCULAR VOLUME 79.4 fl (81.0-99.0); MONOCYTES # (AUTO) 0.5 K/uL (0.4-2.0); MONOCYTES % (AUTO) 5.1 (0-10); NEUTROPHILS % (AUTO) 89.6 % (42.2-75.2); PLATELET COUNT 260 10^3/uL (140-440); RDW COEFFICIENT OF VARIATION 17.7 % (11.6-14.8); RED BLOOD COUNT 4.42 10^6/ul (4.20-5.40); WHITE BLOOD COUNT 10.02 K/ul (4.6-10.2)
[2021-04-12 06:03] LABS: ALANINE AMINOTRANSFERASE 27.2 U/L (0-35); ALBUMIN 3.56 g/dL (3.5-5.0); ALKALINE PHOSPHATASE 44.1 U/L (53-141); ASPARTATE AMINO TRANSFERASE 35.8 U/L (14-36); BILIRUBIN,TOTAL 0.49 mg/dL (0.2-1.3); BLOOD UREA NITROGEN 14.3 mg/dL (7-17); CALCIUM 8.12 mg/dL (8.4-10.2); CARBON DIOXIDE 38.1 mmol/L (22-30.0); CHLORIDE 87.7 mmol/L (98-107); CREATININE 0.62 mg/dL (0.60-1.30); GLUCOSE 146.7 mg/dL (74-106); SODIUM 133.2 mmol/L (134.5-145); TOTAL PROTEIN 6.55 g/dL (6.3-8.2)
[2021-04-12 06:06] LABS: POTASSIUM 2.71 mmol/L (3.5-5.1)
[2021-04-12] MEDS: CALAN SR PO SCH (09:07)
[2021-04-12] MEDS: ROCEPHIN 1 GM/50 ML D5W 1 GM/50 ML BAG IV SCH (09:07)
[2021-04-12] MEDS: K-DUR PO SCH ×4 (09:08→20:25)
[2021-04-12] MEDS: HYZAAR 50-12.5 MG TAB PO SCH (09:08)
[2021-04-12] MEDS: PRILOSEC PO SCH (09:08)
[2021-04-12] MEDS: MICRO-K CAP PO SCH (09:08)
[2021-04-12] MEDS: FLONASE NAS SCH (09:09)
[2021-04-12] MEDS: NYSTOP POWDER TP SCH ×3 (09:09→20:31)
[2021-04-12 11:33] LABS: ABG PH 7.47 (7.35-7.45)
[2021-04-12 11:34] LABS: ABG O2 HGB 88.3 % (95-100); BEecf 13.4 (-2.0-3.0); COHb 2.2 (0.5-1.5); HCO3 37.1 (21-28); MetHb 0.4 (0-1.5); TCO2 38.7 (19-24); sO2 88.1 % (94-98); tHb 11.9 g/dl (11.7-17.4)
[2021-04-12] MEDS ORDERED: ULTRAM PO STA (12:16)
[2021-04-12] MEDS ORDERED: TORADOL IVP STA (16:12)
[2021-04-12] MEDS: PERCOCET 5-325 PO PRN (16:38)
[2021-04-12] MEDS: GLUCOPHAGE PO SCH (21:08)
[2021-04-13] MEDS: VENTOLIN HFA (PER PUFF-WITH SPACER) IH SCH (05:00)
[2021-04-13] MEDS: ATROVENT HFA INHALER (PER PUFF-WITH SPACER) IH SCH ×2 (05:00→12:45)
[2021-04-13 05:38] LABS: HEMOGLOBIN 11.4 g/dl (12.0-16.0); MEAN CORPUSCULAR HGB CONC 30.8 (31.8-35.4); MEAN CORPUSCULAR VOLUME 81.1 fl (81.0-99.0); PLATELET COUNT 288 10^3/uL (140-440); RDW COEFFICIENT OF VARIATION 18.1 % (11.6-14.8); RED BLOOD COUNT 4.56 10^6/ul (4.20-5.40); WHITE BLOOD COUNT 10.77 K/ul (4.6-10.2)
[2021-04-13] MEDS: SOLU-CORTEF 100 MG IVP SCH ×3 (05:39→21:49)
[2021-04-13] MEDS: LEVAQUIN PO SCH (05:39)
[2021-04-13 05:47] LABS: ANISOCYTOSIS NOT PRESENT (NOT PRESENT)
[2021-04-13 05:51] LABS: ALANINE AMINOTRANSFERASE 29.8 U/L (0-35); ALBUMIN 3.63 g/dL (3.5-5.0); ALKALINE PHOSPHATASE 47.5 U/L (53-141); ASPARTATE AMINO TRANSFERASE 34.9 U/L (14-36); BILIRUBIN,TOTAL 0.37 mg/dL (0.2-1.3); BLOOD UREA NITROGEN 19.1 mg/dL (7-17); CALCIUM 7.9 mg/dL (8.4-10.2); CARBON DIOXIDE 33.4 mmol/L (22-30.0); CHLORIDE 92.2 mmol/L (98-107); CREATININE 0.73 mg/dL (0.60-1.30); GLUCOSE 149.5 mg/dL (74-106); POTASSIUM 3.95 mmol/L (3.5-5.1); SODIUM 132.8 mmol/L (134.5-145); TOTAL PROTEIN 6.71 g/dL (6.3-8.2)
[2021-04-13] MEDS ORDERED: ALBUTEROL 0.083% NEB NEB SCH (09:00)
[2021-04-13] MEDS: CALAN SR PO SCH (09:05)
[2021-04-13] MEDS: PRILOSEC PO SCH (09:05)
[2021-04-13] MEDS: ZAROXOLYN PO SCH (09:05)
[2021-04-13] MEDS: GLUCOPHAGE PO SCH ×2 (09:05→17:39)
[2021-04-13] MEDS: ROCEPHIN 1 GM/50 ML D5W 1 GM/50 ML BAG IV SCH (09:05)
[2021-04-13] MEDS: HYZAAR 50-12.5 MG TAB PO SCH (09:06)
[2021-04-13] MEDS: PERCOCET 5-325 PO PRN ×2 (09:06→20:57)
[2021-04-13] MEDS: ELIQUIS PO SCH ×2 (09:07→20:58)
[2021-04-13 09:12] LABS: ABG O2 HGB 92.5 % (95-100); ABG PH 7.42 (7.35-7.45); BEecf 8.6 (-2.0-3.0); COHb 2.1 (0.5-1.5); HCO3 33.1 (21-28); MetHb 0.3 (0-1.5); TCO2 34.7 (19-24); sO2 91.8 % (94-98); tHb 11.8 g/dl (11.7-17.4)
--- NOTE | 2021-04-13 09:18 | PCM.PROG ---
Attending Provider: ATTENDING PROVIDER: Dr. OANH SULLIVAN This patient is seen with Irina Queen, Nurse Practitioner. DATE OF SERVICE: 04/13/21 SUBJECTIVE: This 80 year old /WHITE F was hospitalized 04/10/21. The patient is resting comfortably. Fatigued and easily confused this morning. Breathing is stable. REVIEW OF SYSTEMS: CONSTITUTIONAL: No night sweats. No fatigue, malaise, lethargy. No fever or chills. Weakness. HEENT: Eyes: No visual changes. No eye pain. No eye discharge. ENT: No runny nose. No epistaxis. No sinus pain. No odynophagia. No congestion. RESPIRATORY: No cough, no congestion. No hemoptysis. Shortness of breath. CARDIOVASCULAR: No angina symptoms. No CHF symptoms. No atypical chest pain for CAD. No palpitations. No orthopnea.. GASTROINTESTINAL: No abdominal pain. No nausea or vomiting. No diarrhea or constipation. No hematemesis. No hematochezia. GENITOURINARY: No urgency. No frequency. No dysuria. No hematuria. No obstructive symptoms. No discharge. No pain. No significant abnormal bleeding. MUSCULOSKELETAL: No musculoskeletal pain; no joint swelling. NEUROLOGICAL: Awake, alert, intermittent confusion. No headache. No neck pain. No syncope. No seizures. No dizziness. PSYCHIATRIC: Not anxious. No depression. No suicidal thoughts. No homicidal thoughts. SKIN: No rash. No lesions. No wounds. ENDOCRINE: No unexplained weight loss. No weight gain. HEMATOLOGIC/LYMPHATIC: No anemia. No purpura. No petechiae. No prolonged or exc essive bleeding. No palpable lymph nodes. PHYSICAL EXAMINATION: GENERAL: The patient is awake, alert and oriented to person, lying in bed in no distress. VITAL SIGNS: Temperature 97.7 F, Pulse 91, Respiratory Rate 18, BP 120/76, Pulse Ox 97% HEENT: Head normocephalic, atraumatic. Eyes: Extraocular muscles are intact. Pupils are equal, round and reactive to light and accommodation. Ears: No lesions. Nose appeared normal. Throat: No exudate or erythema. NECK: Supple. No JVD, no carotid bruit. No lymphadenopathy or thyromegaly. LUNGS: Diminished breath sounds. Clear to auscultation. Percussion note normal. Chest symmetrical. HEART: S1, S2, no S3. No murmurs. No cyanosis or clubbing. No ascites. Pulses: Dorsalis pedis and posterior tibial pulses +1 to +2 both sides. ABDOMEN: Soft. Non-tender. Bowel sounds active. No CVA tenderness. No mass felt. EXTREMITIES: No edema. Full range of motion of all extremities, equal. NEUROLOGIC: No focal deficit. Cranial nerves II through XII are grossly intact. No headache. No double vision. SKIN: Not dry. Intact. Turgor-normal. LYMPHATIC: No palpable lymph nodes/no lymphedema. MUSCULOSKELETAL: Normal joints with no swelling. Muscle tone is normal. LAB REVIEW: 04/13/21 04:43 04/13/21 04:43 04/13/21 04:43: Sodium 132.8 L, Potassium 3.95, Chloride 92.2 L, Carbon Dioxide 33.4 H, Anion Gap 11.15, BUN 19.1 H, Creatinine 0.73, Estimated GFR (MDRD) 77.00, BUN/Creatinine Ratio 26.16, Glucose 149.5 H, Calcium 7.90 L, Total Bilirubin 0.37, AST 34.9, ALT 29.8, Alkaline Phosphatase 47.5 L, Total Protein 6.71, Albumin 3.63, Globulin 3.08, Albumin/Globulin Ratio 1.17 04/13/21 04:43: WBC 10.77 H, RBC 4.56, Hgb 11.4 L, Hct 37.0, MCV 81.1, MCH 25.0 L, MCHC 30.8 L, RDW Coeff of Melissa 18.1 H, Plt Count 288, Neutrophils % (Manual) 95.0 H, Lymphocytes % (Manual) 2.0 L, Monocytes % (Manual) 3.0, Anisocytosis Not present 04/12/21 11:05: Puncture Site Lrad, Base Excess 13.4 H, O2 Saturation 88.1 L, ABG pH 7.47 H, ABG pCO2 51.0 H, ABG pO2 51.0 L*, ABG HCO3 37.1 H, ABG Total CO2 38.7 H, [place] Test +, Hemoglobin 0.4, Oxyhemoglobin 88.3 L, Carboxyhemoglobin 2.2 H, Total Hemoglobin 11.9, O2 Delivery Device Nc, Oxygen Liter Flow 2.00 ASSESSMENT: Please see below. 1. Acute respiratory failure 2. Bilateral pneumonia 3. 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 PLAN: 1. Repeat ABG this morning on 3 liters 2. Albuterol NEB TID scheduled 3. Pulmicort NEB 1mg BID scheduled 4. Discontinue IV fluids 5. Potassium 40meq BID Plan and coordination of the patient's care discussed in the presence of Head Wood Grinder and nurse. SCRIBED BY: Kay SALINASist scribed while in presence of service performed by Dr. Sullivan/Irina Queen APRN on 04/13/21 ([id number])
[2021-04-13] MEDS: ALBUTEROL 0.083% NEB NEB SCH ×3 (09:35→20:00)
[2021-04-13] MEDS: NYSTOP POWDER TP SCH ×3 (09:49→20:58)
[2021-04-13] MEDS: FLONASE NAS SCH (09:49)
[2021-04-13] MEDS: K-DUR PO SCH ×2 (09:50→17:39)
[2021-04-13] MEDS: TYLENOL PO PRN (11:49)
[2021-04-13 12:10] LABS: CARCINOEMBRYONIC ANTIGEN 2.3 ng/mL (0.0-4.7)
[2021-04-13] MEDS: ULTRAM PO PRN (13:08)
--- NOTE | 2021-04-13 13:27 | RS.PTINEVL ---
Subjective - Patient information Date of Evaluation: 04/13/21 Date of Arrival on Unit: 04/10/21 Admitted From:: Home Diagnosis: B pneumonia, dehydration, thyroid CA with metastatic lung nodules, falls Usual Living Arrangement: Alone Living Arrangement Comments: dtr and son in law are supportive, has caregiver a couple hours a day a few days a week. She did her grocery shopping each week. Amb with rwx. Home Environment: House, Level/No stairs Medical History: Hypertension, Dementia, CHF, Arthritis, Cancer (thyroid with metastatic nodules in lungs) Medical History Comments:: CAD, L ventricular hypertrophy, GERD, neuropathy, osteopenia, afib, Surgical History: Knee Replacement (BTKR), Cholecystectomy, Hysterectomy Medications: see chart Subjective Information/ Patient Comments:: pt states that she has just gotten weak. Reports she fell x 3 at home. Son in law states she has been weaker since getting 2nd covid shot on last tuesday. - Level of function Prior to this admission, the patient could do the following:: Independent Selfcare, Independent ADL's, Independent Ambulation Abilities prior to this admission: had caregiver a couple of hours a day a few days a week. Current Level of Function: Partially Dependent Current Equipment Used at Home: BSC, rwx Pain Assessement - Location R neck Description: Tightness, Aching Pain Behavior: Facial Grimacing Effects of Pain: pt has swollen area on R neck and c/o pain with palpation Interventions - Objective Patient Orientation: Person, Place, Situation Current Interventions: IV's, Oxygen (3liters), Telemetry Observation: pt with non pitting edema BLE Range of Motion - ROM Right Upper Extremity AROM: Slight limitation (slight limitation in R shld flex) Left Upper Extremity AROM: WFL's Right Lower Extremity AROM: WFL's Left Lower Extremity AROM: WFL's Muscle Strength - Muscle Strength Right Upper Extremity Strength: Mild Weakness (shld flex 3/5, elbow flex/ext 4- /5,) Left Upper Extremity Strength: Mild Weakness (grossly 4-/5) Right Lower Extremity Strength: Mild Weakness (hip flex 4-/5, knee flex/ext 4- /5, ankle DF/PF 4/5) Left Lower Extremity Strength: Mild Weakness (hip flex 4-/5, knee flex/ext 4-/5, ankle DF/PF 4/5) Sensation - Sensation Right Upper Extremity Sensation: Intact/Normal Left Upper Extremity Sensation: Intact/Normal Right Lower Extremity Sensation: Impaired Left Lower Extremity Sensation: Impaired (occasional n/t in BLE due to neuropathy) Palpation Palpation Findings: Tenderness Comments:: R cervical area Balance - Sitting Balance and Reactions Static Sitting Balance: Fair Dynamic Sitting Balance: Fair - Standing Balance and Reactions Static Standing Balance: Poor Dynamic Standing Balance: Poor Standing Equilibrium Reactions: Delayed Left, Delayed Right Standing Protective Reactions: Delayed Left, Delayed Right Functional Mobility - Bed Mobility Comments:: pt seen sitting up in chair - Transfers Sit to Stand: Min Assist, Mod Assist (x1) Stand to Sit: Min Assist, Mod Assist Stand Pivot Transfers: Min Assist, Mod Assist - Safety Awareness Safety Awareness: Good CHANDANA INDEX SCORE: n/a Ambulation - Ambulation Assistive Device Used: Rolling Walker Orthotic/Prosthetic Device: No Distance: 2-3 steps Assistance needed with Ambulation: Min Assist, 2 person assist Gait Deviations: Forward posture, Short stride Ambulation Comments: increased lat sway, decreased step length. pt c/o dizziness and had to sit. Factors Affecting Ambulation: Decreased Balance, Breathing/O2 Saturation, Pain, Weakness, Dizziness, Decreased Safety, Cognitive Status, Limited Endurance Treatment time - Time with patient Length of Evaluation: 19 Total treatment time: 32 Patient Education - Education Patient Education: Activity Modification, Education of Plan of Care Teaching Recipient: Patient Teaching Methods: Discussion Assessment - Assessment Problem List:: Decreased level of function, Requires training/education, Decreased safety/Risk of falls, Weakness, Pain limits previous level of function, Cognitive status limits abilities Rehab Potential: Good Further Therapy Indicated?: Yes Candidate for Swing Bed for Therapy Services?: Feel pt may not be a candidate for swing due to may not be able to tolerate the amount of therapy required. Evaluation Complexity: HISTORY: Medium, EXAM OF BODY SYSTEMS: Medium, CLINICAL PRESENTATION: Medium, CLINICAL DECISION MAKING: Medium Patient's Goal(s): go home Short Term Goals GOAL #1: pt transfer sup to/from sit min x 1 Goal to be met by: 04/16/21 GOAL #2: Transfer sit to/from stand min x 1 Goal to be met by: 04/16/21 GOAL #3: pt amb with rwx 25ft with min x 1 with no LOB Goal to be met by: 04/16/21 Progress towards Goal:: Partially Met GOAL #4: Improve LE strength 4- to 4/5 Goal to be met by: 04/16/21 GOAL #5: pt able to sit edge of bed without LOB reaching away and across midline. Goal to be met by: 04/16/21 Copyright Expert Goals GOAL #1: pt transfer sup to/from sit to/from stand CGA Goal to be met by: 04/17/21 GOAL #2: pt amb 50ft with rwx and O2 CGA x 1 Goal to be met by: 04/17/21 GOAL #3: Improve dyn stand balance fair Goal to be met by: 04/17/21 Plan Plan of Care: Therapeutic EX, Therapeutic Activity, Self-Care/Home Management Frequency of Treatment: BID Anticipated Discharge Destination: Home Treatment Diagnosis (ICD 10 Codes): impaired balance R 26.81. muscle weakness M62.81. difficulty walking R26.2 Has the Physician been added for Co-signature?: Yes
--- NOTE | 2021-04-13 13:50 | ECHO2D ---
Date of Exam: 04/12/2021 Ordering Physician: DR. OANH SULLIVAN Room #: 102 Reason for Echo: SOB, COPD, CA M-Mode Normal Adult Results LV Dimensions Normal Adult Results AoV Opening excursions >1.6 >1.6 LVEDD-base- 3.5-5.8 5.8 Ao root dimensions 2.0-3.7 3.5 LVESD-base- 3.1-4.6 L. Atrium dimensions 1.9-3.8 5.1 Post. Wall thickness 0.8-1.1 1.4 IV septum (thickness) 0.7-1.2 1.4 Post. Wall excursion 0.72-1.3 NORMAL Septal motion NORMAL Systolic motion R. Ventricular cavity 1.5-2.0 3.0 LVEF 60% 52% Paradoxical septal wall motion NORMAL 2-D : ENLARGED LEFT ATRIAL CAVITY, RIGHT VENTRICLE CAVITY BORDERLINE, ENLARGED LEFT VENTRICLE CAVITY, NORMAL LEFT VENTRICLE CONTRACTILITY--NORMAL VALVES, NO EFFUSION, NO THROMBUS M-MODE: MV: NORMAL AV: NORMAL TV: NORMAL PV: CHAMBER SIZE: ENLARGED LEFT ATRIAL CAVITY AND RIGHT VENTRICLE CAVITY WALL MOTION: NORMAL PERICARDIUM: NORMAL INTERPRETATION: 1. LEFT VENTRICULAR CONTRACTILITY--MODERATE 2. NORMAL LEFT VENTRICLE CONTRACTILITY 3. ENLARGED LEFT ATRIAL AND RIGHT VENTRICLE CAVITIES 4. BORDERLINE LEFT VENTRICLE CAVITY 5. NORMAL VALVES MTDD
[2021-04-13] MEDS: PULMICORT 1 MG/2 ML NEB SCH (20:00)
[2021-04-14] MEDS: PULMICORT 1 MG/2 ML NEB SCH ×2 (04:40→19:32)
[2021-04-14] MEDS: ALBUTEROL 0.083% NEB NEB SCH ×3 (04:40→19:31)
[2021-04-14 05:14] LABS: HEMATOCRIT 38.5 % (37.0-47.0); HEMOGLOBIN 11.7 g/dl (12.0-16.0); MEAN CORPUSCULAR HEMOGLOBIN 24.6 pg (27.0-31.0); MEAN CORPUSCULAR HGB CONC 30.4 (31.8-35.4); MEAN CORPUSCULAR VOLUME 81.1 fl (81.0-99.0); PLATELET COUNT 299 10^3/uL (140-440); RDW COEFFICIENT OF VARIATION 17.8 % (11.6-14.8); RED BLOOD COUNT 4.75 10^6/ul (4.20-5.40); WHITE BLOOD COUNT 9.48 K/ul (4.6-10.2)
[2021-04-14 05:25] LABS: ALANINE AMINOTRANSFERASE 40.6 U/L (0-35); ALBUMIN 3.63 g/dL (3.5-5.0); ALKALINE PHOSPHATASE 49.4 U/L (53-141); ASPARTATE AMINO TRANSFERASE 36.1 U/L (14-36); BILIRUBIN,TOTAL 0.32 mg/dL (0.2-1.3); BLOOD UREA NITROGEN 17.8 mg/dL (7-17); CALCIUM 8.11 mg/dL (8.4-10.2); CARBON DIOXIDE 37.5 mmol/L (22-30.0); CHLORIDE 90.1 mmol/L (98-107); CREATININE 0.68 mg/dL (0.60-1.30); GLUCOSE 150.5 mg/dL (74-106); POTASSIUM 3.29 mmol/L (3.5-5.1); SODIUM 134.7 mmol/L (134.5-145); TOTAL PROTEIN 6.7 g/dL (6.3-8.2)
[2021-04-14 05:38] LABS: ANISOCYTOSIS NOT PRESENT (NOT PRESENT)
[2021-04-14] MEDS: SOLU-CORTEF 100 MG IVP SCH ×3 (05:54→20:23)
[2021-04-14 07:20] LABS: CANCER ANTIGEN 27.29 11.6 U/mL (0.0-38.6)
[2021-04-14] MEDS: HYZAAR 50-12.5 MG TAB PO SCH (09:04)
[2021-04-14] MEDS: CALAN SR PO SCH (09:06)
[2021-04-14] MEDS: K-DUR PO SCH ×3 (09:06→16:16)
[2021-04-14] MEDS: GLUCOPHAGE PO SCH ×2 (09:06→16:16)
[2021-04-14] MEDS: ELIQUIS PO SCH ×2 (09:07→20:24)
[2021-04-14] MEDS: ROCEPHIN 1 GM/50 ML D5W 1 GM/50 ML BAG IV SCH (09:07)
[2021-04-14] MEDS: ULTRAM PO PRN (09:07)
[2021-04-14] MEDS: FLONASE NAS SCH (09:08)
[2021-04-14] MEDS: NYSTOP POWDER TP SCH ×3 (09:08→20:25)
--- NOTE | 2021-04-14 09:53 | PCM.PROG ---
Attending Provider: ATTENDING PROVIDER: Dr. OANH ROSE This patient is seen with Irina Queen, Nurse Practitioner. DATE OF SERVICE: 04/14/21 SUBJECTIVE: This 80 year old /WHITE F was hospitalized 04/10/21. She is having difficulty swallowing liquids. Daughter has understanding of poor prognosis. She likely has metastasis to soft tissue in the neck. She is undecided on whether or not have palliative care only. REVIEW OF SYSTEMS: CONSTITUTIONAL: No night sweats. No fatigue, malaise, lethargy. No fever or chills. Weakness. HEENT: Eyes: No visual changes. No eye pain. No eye discharge. ENT: No runny nose. No epistaxis. No sinus pain. No odynophagia. No congestion. RESPIRATORY: No cough, no congestion. No hemoptysis. No shortness of breath. CARDIOVASCULAR: No angina symptoms. No CHF symptoms. No atypical chest pain for CAD. No palpitations. No orthopnea.. GASTROINTESTINAL: No abdominal pain. No nausea or vomiting. No diarrhea or constipation. No hematemesis. No hematochezia. GENITOURINARY: No urgency. No frequency. No dysuria. No hematuria. No obstruct wander symptoms. No discharge. No pain. No significant abnormal bleeding. MUSCULOSKELETAL: No musculoskeletal pain; no joint swelling. Lymphadenopathy. NEUROLOGICAL: Awake, alert, confused. No headache. No neck pain. No syncope. No seizures. No dizziness. PSYCHIATRIC: Not anxious. No depression. No suicidal thoughts. No homicidal thoughts. SKIN: No rash. No lesions. No wounds. ENDOCRINE: No unexplained weight loss. No weight gain. HEMATOLOGIC/LYMPHATIC: No anemia. No purpura. No petechiae. No prolonged or excessive bleeding. No palpable lymph nodes. PHYSICAL EXAMINATION: GENERAL: The patient is awake, alert and oriented to person only, sitting in the chair in no distress. VITAL SIGNS: Temperature 97.9 F, Pulse 87, Respiratory Rate 18, BP 135/78, Pulse Ox 96% HEENT: Head normocephalic, atraumatic. Eyes: Extraocular muscles are intact. Pupils are equal, round and reactive to light and accommodation. Ears: No lesions. Nose appeared normal. Throat: No exudate or erythema. NECK: Supple. No JVD, no carotid bruit. Anterior cervical lymphadenopathy bilateral. LUNGS: Diminished breath sounds. Clear to auscultation. Percussion note normal. Chest symmetrical. HEART: S1, S2, no S3. No murmurs. No cyanosis or clubbing. No ascites. Pulses: Dorsalis pedis and posterior tibial pulses +1 to +2 both sides. ABDOMEN: Soft. Non-tender. Bowel sounds active. No CVA tenderness. No mass felt. EXTREMITIES: No edema. Full range of motion of all extremities, equal. NEUROLOGIC: No focal deficit. Cranial nerves II through XII are grossly intact. No headache. No double vision. SKIN: Not dry. Intact. Turgor-normal. LYMPHATIC: No palpable lymph nodes/no lymphedema. MUSCULOSKELETAL: Normal joints with no swelling. Muscle tone is normal. LAB REVIEW: 04/14/21 04:36 04/14/21 04:36 04/14/21 04:36: Sodium 134.7, Potassium 3.29 L, Chloride 90.1 L, Carbon Dioxide 37.5 H, Anion Gap 10.39, BUN 17.8 H, Creatinine 0.68, Estimated GFR (MDRD) 8 3.00, BUN/Creatinine Ratio 26.17, Glucose 150.5 H, Calcium 8.11 L, Total Bilirubin 0.32, AST 36.1 H, ALT 40.6 H, Alkaline Phosphatase 49.4 L, Total Protein 6.70, Albumin 3.63, Globulin 3.07, Albumin/Globulin Ratio 1.18 04/14/21 04:36: WBC 9.48, RBC 4.75, Hgb 11.7 L, Hct 38.5, MCV 81.1, MCH 24.6 L, MCHC 30.4 L, RDW Coeff of Melissa 17.8 H, Plt Count 299, Neutrophils % (Manual) 92.0 H, Lymphocytes % (Manual) 5.0 L, Monocytes % (Manual) 3.0, Anisocytosis Not present 04/13/21 09:05: Puncture Site Rrad, Base Excess 8.6 H, O2 Saturation 91.8 L, ABG pH 7.42, ABG pCO2 51.0 H, ABG pO2 62.0 L, ABG HCO3 33.1 H, ABG Total CO2 34.7 H, [place] Test Pos, Hemoglobin 0.3, Oxyhemoglobin 92.5 L, Carboxyhemoglobin 2.1 H, Total Hemoglobin 11.8, O2 Delivery Device Cannula, Oxygen Liter Flow 3.00 04/11/21 05:07: Carcinoembryonic Ag 2.3, CA 27-29 11.6 ASSESSMENT: Please see below. 1. 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 2. Respiratory failure 3. Hypokalemia 4. Generalized weakness PLAN: 1. Discussed with the daughter in great detail regarding poor prognosis. The patient doesn't have understanding. Family is considering palliative treatment and placement in nursing facility. 2. Percocet 7.5mg every 6 hours [address] Morton Tuesday or Tuesday 4. Discontinue Omeprazole 5. Protonix 40mg BID PO 6. Potassium TID Plan and coordination of the patient's care discussed in the presence of Production Coordinator and nurse. SCRIBED BY: Janeth SALINAS scribed while in presence of service performed by Dr. Rose/Irina Queen APRN on 04/14/21 ([id number])
[2021-04-14] MEDS: LEVAQUIN PO SCH (10:56)
[2021-04-14] MEDS: PERCOCET 7.5-325 PO PRN ×2 (11:23→20:24)
--- NOTE | 2021-04-14 14:33 | PN ---
DATE OF SERVICE: 04/10/2021 SUBJECTIVE: The patient was seen and examined in the emergency room. She was brought to the emergency room by family because the patient was having cough, congestion, weakness and on further investigation the patient was hypoxic with respiratory failure with bilateral pneumonia with bilateral nodules in the lungs, possibility of metastasis. She is non-smoker. The patient's other problem was severe hypokalemia with potassium 2.6. Discussed with her medical problems with chronic lung disease, atrial fibrillation, hypertension, dyslipidemia with her sedentary lifestyle. The patient is going to be hospitalized she does not want any respiratory or intubation but she wants CPR without intubation. She was oriented to time, place and person. REVIEW OF SYSTEMS: CONSTITUTIONAL: No night sweats. No fatigue, malaise, lethargy. No fever or chills. HEENT: Eyes: No visual changes. No eye pain. No eye discharge. ENT: No runny nose. No epistaxis. No sinus pain. No sore throat. No odynophagia. No congestion. RESPIRATORY: No cough, no congestion. No hemoptysis. No shortness of breath. CARDIOVASCULAR: No angina symptoms. No CHF symptoms. No atypical chest pain for CAD. No palpitations. No PND. No orthopnea. GASTROINTESTINAL: No abdominal pain. No nausea or vomiting. No diarrhea or constipation. No hematemesis. No hematochezia. GENITOURINARY: No urgency. No frequency. No dysuria. No hematuria. No obstructive symptoms. No discharge. No pain. No significant abnormal bleeding. MUSCULOSKELETAL: No musculoskeletal pain; no joint swelling. NEUROLOGICAL: No headache. No neck pain. No syncope. No seizures. No dizziness. PSYCHIATRIC: Not anxious. No depression. No suicidal thoughts. No homicidal thoughts. SKIN: No rash. No lesions. No wounds. ENDOCRINE: No unexplained weight loss. No weight gain. HEMATOLOGIC/LYMPHATIC: No anemia. No purpura. No petechiae. No prolonged or excessive bleeding. No palpable lymph nodes. PHYSICAL EXAMINATION: HEENT: Head normocephalic, atraumatic. Eyes: Extraocular muscles are intact. Pupils are equal, round and reactive to light and accommodation. Ears: No lesions. Nose appeared normal. Throat: No exudate or erythema. NECK: Supple. No JVD, no carotid bruit. No lymphadenopathy or thyromegaly. LUNGS: Decreased breath sounds with bilateral wheeze. Clear to auscultation. Percussion note normal. Chest symmetrical. HEART: S1, S2, no S3.Irregularly irregular. Rate was 100. No murmurs. No cyanosis or clubbing. No ascites. Pulses: Dorsalis pedis and posterior tibial pulses +1 to +2 bilaterally. ABDOMEN: Soft. Nontender. Bowel sounds active. No CVA tenderness. No mass felt. EXTREMITIES: No edema. Full range of motion of all extremities, equal. Cyanosis NEUROLOGIC: No focal deficit. Cranial nerves II through XII are grossly intact. No headache. No double vision. SKIN: Not dry. Intact. Turgor - normal. LYMPHATIC: No palpable lymph nodes/no lymphedema. MUSCULOSKELETAL: Normal joints with no swelling. Muscle tone is normal. LABS: Atrial blood gasses and labs examined along with x-ray findings. ASSESSMENT: 1. Acute respiratory failure 2. Bilateral pneumonia 3. Bilateral nodules with abnormal chest x-ray 4. Hypokalemia 5. Chronic lung disease 6. Hypertension, moderate to severe 7. Atrial fibrillation with somewhat rapid ventricular response PLAN: 1. Advised to do CT scan of the chest in the morning with contrast. 2. The patient to be hospitalized with IV antibiotics, Levaquin. She is allergic to Pencillin. 3. She will also be given Solu-Cortef 125mg Q 6 hours. 4. She is going to be on DUO NEBS QID. 5. Oxygen 2-3 liters. 6. She will be monitored with telemetry and oximetry. 7. Potassium supplements being given; 40meq was given in the emergency room then she is going to get another dose at 9pm tonight along with 12 midnight dose and then she is going to be on 40meq TID. 8. She will be monitored CBC and CMP daily. 9. She is going to be continued on Eliquis and other medications. 10.Her blood pressured was noted to be 190 to 200 systolic in the evening and further orders were given to give her 1.25mg IV Vasotec Q 6 hours for blood pressure of more than 160, 0.1mg of Clonidine was given to her prior that. TOTAL TIME SPENT: 1.5 hours with CRITICAL CARE Plan and coordination of the patient's care discussed in the presence of nurse. WOOD
--- NOTE | 2021-04-14 14:54 | PN ---
DATE OF SERVICE: 04/11/2021 SUBJECTIVE: 80 year old white female hospitalized with acute respiratory failure. The patient's condition overall seems to have improved. She looks better. She says that her appetite has improved. This morning she ate her breakfast. REVIEW OF SYSTEMS: CONSTITUTIONAL: No night sweats. No fatigue, malaise, lethargy. No fever or chills. HEENT: Eyes: No visual changes. No eye pain. No eye discharge. ENT: No runny nose. No epistaxis. No sinus pain. No sore throat. No odynophagia. No congestion. RESPIRATORY: Mild cough, no congestion. No hemoptysis. Shortness of breath on minimal exertion. CARDIOVASCULAR: No angina symptoms. No CHF symptoms. No atypical chest pain for CAD. No palpitations. No PND. No orthopnea. GASTROINTESTINAL: No abdominal pain. No nausea or vomiting. No diarrhea or constipation. No hematemesis. No hematochezia. Appetite seems to have improved. GENITOURINARY: No urgency. No frequency. No dysuria. No hematuria. No obstructive symptoms. No discharge. No pain. No significant abnormal bleeding. MUSCULOSKELETAL: No musculoskeletal pain; no joint swelling. NEUROLOGICAL: No headache. No neck pain. No syncope. No seizures. No dizziness. PSYCHIATRIC: Not anxious. No depression. No suicidal thoughts. No homicidal thoughts. SKIN: No rash. No lesions. No wounds. ENDOCRINE: No unexplained weight loss. No weight gain. HEMATOLOGIC/LYMPHATIC: No anemia. No purpura. No petechiae. No prolonged or excessive bleeding. No palpable lymph nodes. PHYSICAL EXAMINATION: GENERAL: The patient is oriented to time, place and person. VITAL SIGNS: Temperature 98.1, pulse 97, respiratory rate 18, blood pressure 111/71 and pulse ox 94%. HEENT: Head normocephalic, atraumatic. Eyes: Extraocular muscles are intact. Pupils are equal, round and reactive to light and accommodation. Ears: No lesions. Nose appeared normal. Throat: No exudate or erythema. NECK: Supple. No JVD, no carotid bruit. No lymphadenopathy or thyromegaly. LUNGS: Decreased breath sounds bilaterally. Absent breath sounds at bases. Clear to auscultation. Percussion note normal. Chest symmetrical. HEART: S1, S2 distant, no S3. No murmurs. No cyanosis or clubbing. No ascites. Pulses: Dorsalis pedis and posterior tibial pulses +1 to +2 bilaterally. ABDOMEN: Soft. Nontender. Bowel sounds active. No CVA tenderness. No mass felt. EXTREMITIES: Trace edema. Full range of motion of all extremities, equal. NEUROLOGIC: No focal deficit. Cranial nerves II through XII are grossly intact. No headache. No double vision. SKIN: Not dry. Intact. Turgor - normal. LYMPHATIC: No palpable lymph nodes/no lymphedema. MUSCULOSKELETAL: Normal joints with no swelling. Muscle tone is normal. LABS: Hgb 11, hct 36, WBC 8,000 normal differential, creatinine 0.7, BUN 14, potassium 2.96 that is almost 3. ASSESSMENT: 1. Acute respiratory failure seems to be stabilizing 2. Bilateral pneumonia 3. Hypokalemia seems to be resolving 4. Abnormal CT scan of the chest with metastatic lesions noted. 5. Possibility of cardiomegaly with carcinomatosis in cardiac area 6. Hypertension seems to be controlled this morning 7. 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 Chronic restrictive lung disease 9. Congestive heart failure 10.Atrial fibrillation PLAN: 1. Discussed with Stephanie and the son about the patient. Stephanie was on the phone and she was explained about the patient's chest x-ray report indicating that the patient has metastatic lung disease. The daughter who is the power of business attorney for health indicated that she was told by ENT surgery that anaplastic part of the thyroid cancer was aggressive and could metastasize where papillary carcinoma part. Again, the family with inclination of doing anything more the patient also feeling the same way. The patient is DNR. The patient's condition with steroids and antibiotics seems to have improved. Tolerating steroids very well with the antibiotics being used that is Rocephin and Levofloxacin. 2. The patient is going to be restarted on all the medication including Eliquis. 3. We will do arterial blood gasses 4. We will check cancer markers like CA 27, 29, CA level, thyroglobulin antibodies CONDITION: Seems to have stabilized with some improvement PROGNOSIS: POOR This is EXTENSIVE TIME SPENT: More than 30 minutes. Plan and coordination of the patient's care discussed in the presence of nurse. WOOD
[2021-04-14] MEDS: PROTONIX PO SCH (16:16)
[2021-04-15] MEDS: PERCOCET 7.5-325 PO PRN ×3 (02:19→20:46)
[2021-04-15] MEDS: SOLU-CORTEF 100 MG IVP SCH ×3 (04:40→21:04)
[2021-04-15] MEDS: ALBUTEROL 0.083% NEB NEB SCH ×3 (05:30→20:10)
[2021-04-15] MEDS: PULMICORT 1 MG/2 ML NEB SCH ×2 (05:30→20:10)
[2021-04-15 05:44] LABS: HEMATOCRIT 40.2 % (37.0-47.0); HEMOGLOBIN 12.3 g/dl (12.0-16.0); MEAN CORPUSCULAR HEMOGLOBIN 24.7 pg (27.0-31.0); MEAN CORPUSCULAR HGB CONC 30.6 (31.8-35.4); MEAN CORPUSCULAR VOLUME 80.9 fl (81.0-99.0); PLATELET COUNT 324 10^3/uL (140-440); RDW COEFFICIENT OF VARIATION 17.9 % (11.6-14.8); RED BLOOD COUNT 4.97 10^6/ul (4.20-5.40)
[2021-04-15 05:50] LABS: ALANINE AMINOTRANSFERASE 40.7 U/L (0-35); ALBUMIN 3.72 g/dL (3.5-5.0); ALKALINE PHOSPHATASE 49.9 U/L (53-141); ASPARTATE AMINO TRANSFERASE 31.9 U/L (14-36); BILIRUBIN,TOTAL 0.38 mg/dL (0.2-1.3); BLOOD UREA NITROGEN 19.8 mg/dL (7-17); CALCIUM 8.32 mg/dL (8.4-10.2); CHLORIDE 86.5 mmol/L (98-107); CREATININE 0.68 mg/dL (0.60-1.30); GLUCOSE 136.7 mg/dL (74-106); POTASSIUM 3.71 mmol/L (3.5-5.1); SODIUM 134.8 mmol/L (134.5-145); TOTAL PROTEIN 6.73 g/dL (6.3-8.2)
[2021-04-15] MEDS: PROTONIX PO SCH ×2 (05:56→16:37)
[2021-04-15] MEDS: LEVAQUIN PO SCH (05:56)
[2021-04-15 05:57] LABS: CARBON DIOXIDE 38.8 mmol/L (22-30.0)
[2021-04-15 05:58] LABS: ANISOCYTOSIS NOT PRESENT (NOT PRESENT)
[2021-04-15] MEDS: TYLENOL PO PRN (06:07)
[2021-04-15] MEDS: ELIQUIS PO SCH ×2 (08:55→20:41)
[2021-04-15] MEDS: HYZAAR 50-12.5 MG TAB PO SCH (08:55)
[2021-04-15] MEDS: CALAN SR PO SCH (08:55)
[2021-04-15] MEDS: ZAROXOLYN PO SCH (08:55)
[2021-04-15] MEDS: K-DUR PO SCH ×3 (08:56→16:37)
[2021-04-15] MEDS: NYSTOP POWDER TP SCH ×3 (08:56→20:51)
[2021-04-15] MEDS: GLUCOPHAGE PO SCH ×2 (08:56→16:37)
[2021-04-15] MEDS: FLONASE NAS SCH (08:57)
--- NOTE | 2021-04-15 09:35 | HP ---
DATE OF SERVICE: 04/10/21 HISTORY OF PRESENT ILLNESS: This is an 80-year-old white female who presents to the emergency room feeling poorly for the past several days. She had started coughing. She stated she received her second Covid vaccine two weeks ago and has not felt well since then. She has fallen twice this week, is experiencing shortness of breath with activity. 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 Banks [facility], last ejection fraction 60% done in January Atrial fibrillation on Eliquis Dilated cardiomyopathy Systolic and diastolic CHF Ataxia Chronic leg edema Vitamin D deficiency Obesity COPD Hypertension Neuropathy Metabolic syndrome Obesity Dementia Chronic lung disease COPD Recurrent contact dermatitis PAST SURGICAL HISTORY: Thyroidectomy 02/[address] Banks Bilateral total knee replacement REVIEW OF SYSTEMS: CONSTITUTIONAL: Confusion. Positive for weakness. No night sweats. No fatigue, malaise, lethargy. No fever or chills. HEENT: Eyes: No visual changes. No eye pain. No eye discharge. ENT: No runny nose. No epistaxis. No sinus pain. No sore throat. No odynophagia. No ear pain. No congestion. RESPIRATORY: Positive for cough, shortness of breath. No hemoptysis. CARDIOVASCULAR: No angina symptoms. No CHF symptoms. No atypical chest pain for CAD. No palpitations. No PND. No orthopnea. GASTROINTESTINAL: No abdominal pain. No nausea or vomiting. No diarrhea or constipation. No hematemesis. No hematochezia. GENITOURINARY: No urgency. No frequency. No dysuria. No hematuria. No obstructive symptoms. No discharge. No pain. No significant abnormal bleeding. MUSCULOSKELETAL: No musculoskeletal pain. No joint swelling. No arthritis. NEUROLOGICAL: No headache. No neck pain. No syncope. No seizures. No dizziness. PSYCHIATRIC: Not anxious. No depression. No suicidal thoughts. No homicidal thoughts. SKIN: No rash. No lesions. No wounds. ENDOCRINE: No unexplained weight loss. No weight gain. HEMATOLOGIC/LYMPHATIC: No anemia. No purpura. No petechiae. No prolonged or excessive bleeding. No palpable lymph nodes. PERSONAL/FAMILY/SOCIAL HISTORY: She is a nonsmoker. No alcohol or ilicit drug use. She currently lives at home by herself. She is . However, her daughter and her help take care of her and get her to her appointments. She no longer drives. MEDICATIONS: Verapamil 240 mg p.o. daily Apixaban (Eliquis) 5 mg p.o. b.i.d. Tramadol 50 mg p.o. t.i.d. p.r.n. Omeprazole 20 mg p.o. daily Meclizine 25 mg p.o. t.i.d. Metolazone 2.5 mg p.o. MoWeFr Albuterol two puff INH t.i.d. Potassium Chloride 10 mEq p.o. daily Metformin 500 mg p.o. b.i.d. Fluticasone proprionate two spray intranasal daily Losartan-Hydrochlorothiazide 0.5 tab p.o. daily ALLERGIES: OLMESARTAN (FROM BENICAR), COLLEEN INHIBITORS, PENICILLINS, LORAZEPAM (FROM ATIVAN), DEXAMETHASONE (FROM DECADRON), ERYTHROMYCIN BASE, LORATADINE (FROM CLARITIN) PHYSICAL EXAMINATION: VITAL SIGNS: Temperature 99.8, heart rate 105, respirations 20, BP 124/68, pulse ox 88% on room air. HEENT: Head normocephalic, atraumatic. Eyes: Extraocular muscles are intact. Pupils are equal, round and reactive to light and accommodation. Ears: No lesions. Nose appeared normal. Throat: No exudate or erythema. NECK: Supple. No JVD, no carotid bruit. No lymphadenopathy or thyromegaly. LUNGS: Diminished breath sounds with bilateral rhonchi. Percussion note normal. Chest symmetrical. HEART: S1, S2, no S3. No murmur. No cyanosis or clubbing. No ascites. Pulses: Dorsalis pedis and posterior tibial pulses +1 to +2 bilaterally. ABDOMEN: Soft. Nontender. Bowel sounds active. No CVA tenderness. No mass felt. EXTREMITIES: Tenderness along the right clavicular region on the right side of the neck. Lymphadenopathy anterior cervical chain on the right side. No edema. Full range of motion of all extremities, equal. NEUROLOGIC: Decreased alertness. Alert and oriented to person, not place or time. No focal deficit. Cranial nerves II through XII are grossly intact. No headache, no double vision or headache. SKIN: Not dry. Intact. Turgor - normal. LYMPHATIC: No palpable lymph nodes/no lymphedema. MUSCULOSKELETAL: Normal joints with no swelling. Muscle tone is normal. LABS/IMAGING: White count 8.58, hemoglobin 11.5, hematocrit 36.2, platelets 225. Sodium 132, potassium 2.6, BUN 13.7, creatinine 0.69, glucose 113. ABGs on room air 02 sat 88.4%, pH 7.5, pc02 48, p02 50, bicarb 37.4. Respiratory panel by PCR is negative. CT of the chest shows multiple metastatic lung nodules, metastatic mediastinal and bilateral hilar lymphadenopathy, cardiomegaly with nodular intralobal septal thickening could represent edema or represent carcinomatosis. Right greater than left bilateral pleural effusions, right bilateral atelectasis and/or pneumonia. ASSESSMENT: 1. ACUTE RESPIRATORY FAILURE 2. HYPOKALEMIA 3. RIGHT BASILAR PNEUMONIA ALONG WITH MULTIPLE METASTATIC LUNG NODULES WITH MEDIASTINAL AND BILATERAL HILAR LYMPHADENOPATHY LIKELY FROM THE ANAPLASTIC PAPILLARY THYROID CARCINOMA. PLAN: 1. We will admit. 2. Routine telemetry orders. 3. CBC, CMP daily. 4. CEA. 5. [id number] to be done. 6. Placed on oxygen 2L NC. 7. Repeat ABGs in one hour. 8. CT of the abdomen and pelvis with and without contrast. 9. Rocephin 1 gm IV daily. 10. Solu-Cortef 125 mg IV q.8hr. 11. Sliding scale for insulin. 12. Continue home medications. 13. Potassium 40 mEq q.i.d. 14. Blood cultures times two. 15. CT of brain. 16. ABG now and then repeat in one hour with oxygen. 17. Will follow closely. TIME SPENT: More than 70 minutes. MTDD
--- NOTE | 2021-04-15 10:11 | HP ---
DATE OF SERVICE: 04/10/21 REASON FOR HOSPITALIZATION: Bilateral pneumonia, respiratory failure. HISTORY OF PRESENT ILLNESS: 80-year-old white female came to the emergency room with shortness of breath, pale, severe hypokalemia with potassium of 2.6. The blood gases in the emergency room showed p02 of 50 with pc02 of 48 with pH of 7.50 with 88% saturation on room air. The patient's SARS Covid test was negative. On further workup the patient had nodule metastatic lesions. PAST MEDICAL/SURGICAL HISTORY: Thyroidectomy February 02 History of thyroid cancer, anaplastic papillary, surgery done by Dr. Wilder History of atrial fibrillation Dilated cardiomyopathy Congestive heart failure, diastolic Ataxia Chronic leg edema bilateral Vitamin D deficiency Obesity COPD CHF Total knee replacement Metabolic syndrome Chronic lung disease Contact dermatitis Received first covid vaccine first week of March REVIEW OF SYSTEMS: CONSTITUTIONAL: Fatigue and weakness. No night sweats. No malaise, lethargy. No fever or chills. HEENT: Eyes: No visual changes. No eye pain. No eye discharge. ENT: No runny nose. No epistaxis. No sinus pain. No sore throat. No odynophagia. No ear pain. No congestion. RESPIRATORY: Mild cough with congestion. No hemoptysis. CARDIOVASCULAR: Shortness of breath on minimal exertion. No angina symptoms. No CHF symptoms. No atypical chest pain for CAD. No palpitations. No PND. No orthopnea. GASTROINTESTINAL: Appetite hasn't been good lately the last couple of weeks. No abdominal pain. No nausea or vomiting. No diarrhea or constipation. No hematemesis. No hematochezia. GENITOURINARY: No urgency. No frequency. No dysuria. No hematuria. No obstructive symptoms. No discharge. No pain. No significant abnormal bleeding. MUSCULOSKELETAL: Generalized aches and pains especially shoulders and neck. NEUROLOGICAL: No headache. No neck pain. No syncope. No seizures. No dizziness. PSYCHIATRIC: Not anxious. No depression. No suicidal thoughts. No homicidal thoughts. SKIN: No rash. No lesions. No wounds. ENDOCRINE: No unexplained weight loss. No weight gain. HEMATOLOGIC/LYMPHATIC: No anemia. No purpura. No petechiae. No prolonged or excessive bleeding. No palpable lymph nodes. PERSONAL/FAMILY/SOCIAL HISTORY: The patient is , lives by herself. Nonsmoker. No alcohol abuse. Does practically all activities of daily living. Daughter, Shanice is power of attorney at law. MEDICATIONS: Eliquis 5 mg p.o. twice a day Meclizine 25 mg p.r.n. Prilosec 20 mg p.o. daily Tramadol 50 mg t.i.d. Verapamil 240 mg one a day Metalazone 2.5 p.r.n. for leg swelling ProAir HFA two puffs q.i.d. Metformin 500 mg p.o. twice a day K-Tab 10 mEq p.o. daily Flonase for allergy intranasal daily Losartan Hydrochlorothiazide 50/12.5 half tablet daily ALLERGIES: PENICILLIN, COLLEEN INHIBITORS, DEXAMETHASONE, ERYTHROMYCIN, LORATADINE, LORAZEPAM, BENICAR. PHYSICAL EXAMINATION: GENERAL: The patient looks somewhat pale. Oriented to time, place and person. VITAL SIGNS: Temperature 98.5, pulse 100/min, irregular respiratory rate 18. BP 130/80, pulse ox 92% with 2L. HEENT: Head normocephalic, atraumatic. Eyes: Extraocular muscles are intact. Pupils are equal, round and reactive to light and accommodation. Sclerae nonicteric. Ears: No lesions. Nose appeared normal. Throat: No exudate or erythema. NECK: Supple. No JVD, no carotid bruit. No lymphadenopathy or thyromegaly. LUNGS: Decreased breath sounds, absent breath sounds both bases. Poor air entry. Clear to auscultation. Percussion note normal. Chest symmetrical. HEART: S1, S2 distant no S3. Rate 100/min. No murmur. No cyanosis or clubbing. No ascites. Pulses: Dorsalis pedis and posterior tibial pulses +1 to +2 bilaterally. ABDOMEN: Protuberant. Soft. Nontender. Bowel sounds active. No CVA tenderness. No mass felt. EXTREMITIES: Trace to +1 pitting edema. Pulses +1 bilaterally. Full range of motion of all extremities, equal. NEUROLOGIC: No focal deficit. Cranial nerves II through XII are grossly intact. No headache, no double vision or headache. SKIN: Dry. Mild pallor. LYMPHATIC: No palpable lymph nodes/no lymphedema. MUSCULOSKELETAL: Normal joints with no swelling. Muscle tone is normal. LABS/IMAGING: Hemoglobin 11.5, hematocrit 36, WBC 8,000, normal differential. Creatinine 0.7, BUN 14, potassium 2.6 on admission. Arterial blood gases as mentioned earlier. PH 7.5, 88% saturation with p02 of 50 with pc02 of 48 on room air. C02 elevated 37-[address] scan of the chest showed multiple metastatic lung nodules, metastatic mediastinal and bilateral hilar adenopathy, lymphadenopathy, cardiomegaly with intralobular septal thickening could be from carcinomatosis, bilateral pleural effusion, right basilar atelectasis, less possible pneumonia. CT of the abdomen diverticulosis, prior hysterectomy, prior cholecystectomy. ASSESSMENT: 1. ACUTE RESPIRATORY FAILURE WITH POSSIBILITY OF BILATERAL PNEUMONIA/BRONCHITIS CONTRIBUTING FACTOR METASTATIC DISEASE. 2. HISTORY OF CHRONIC LUNG DISEASE MOSTLY RESTRICTIVE. 3. 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 WILDER. 4. HISTORY OF DILATED CARDIMYOPATHY 5. CONGESTIVE HEART FAILURE, DIASTOLIC 6. HISTORY OF ATRIAL FIBRILLATON ON ELIQUIS 7. CHRONIC BILATERAL LEG EDEMA 8. MORBID OBESITY 9. BILATERAL TOTAL KNEE REPLACEMENT 10. METABOLIC SYNDROME 11. VITAMIN D DEFICIENCY 12. HISTORY OF HYPERTENSION 13. DIABETES MELLITUS PLAN: 1. Admit the patient with routine telemetry orders with serial cardiac markers. 2. Telemetry. 3. Oximetry. 4. Monitor the blood gases. 5. 1 cc Decadron. 6. Dexamethasone daily a.m. 7. Rocephin and Levafloxin. 8. Potassium supplements 40 mEq three times a day #10. 9. Monitor CBC, CMP. 10. Discussed with the patient in detail about her lung findings and overall medical status. The patient was DNI. Earlier she admitted to CPR but later on she changed her mind and she wants total DNR. Discussed the case with the family members especially bilateral multiple metastatic lung nodules. Condition seems to be stable for now, prognosis poor. TIME SPENT: More than 70 minutes. MARGARITAD
--- NOTE | 2021-04-15 10:44 | PN ---
DATE OF SERVICE: 04/13/21 SUBJECTIVE: The patient was seen and examined with the nurse practitioner. The patient has anaplastic carcinoma of the thyroid which has metastasized. Prognosis is poor. TIME SPENT: More than 30 minutes. Plan and coordination of the patient's care discussed in the presence of nurse. WOOD
--- NOTE | 2021-04-15 14:47 | PN ---
DATE OF SERVICE: 04/12/21 SUBJECTIVE: 80-year-old white female hospitalized with bilateral pneumonia, respiratory failure. The patient's condition is stable but the patient states that she is not feeling good. She is complaining of shoulder pain. The patient's oxygen saturation is 94% on 2L. REVIEW OF SYSTEMS: CONSTITUTIONAL: No night sweats. No fatigue, malaise, lethargy. No fever or chills. HEENT: Eyes: No visual changes. No eye pain. No eye discharge. ENT: No runny nose. No epistaxis. No sinus pain. No sore throat. No odynophagia. No congestion. RESPIRATORY: No cough, no congestion. No hemoptysis. No shortness of breath. CARDIOVASCULAR: No angina symptoms. No CHF symptoms. No atypical chest pain for CAD. No palpitations. No PND. No orthopnea. GASTROINTESTINAL: Appetite is not that good. No abdominal pain. No nausea or vomiting. No diarrhea or constipation. No hematemesis. No hematochezia. GENITOURINARY: No urgency. No frequency. No dysuria. No hematuria. No obstructive symptoms. No discharge. No pain. No significant abnormal bleeding. MUSCULOSKELETAL: Complaining of shoulder pain. NEUROLOGICAL: No headache. No neck pain. No syncope. No seizures. No dizziness. PSYCHIATRIC: Not anxious. No depression. No suicidal thoughts. No homicidal thoughts. SKIN: No rash. No lesions. No wounds. ENDOCRINE: No unexplained weight loss. No weight gain. HEMATOLOGIC/LYMPHATIC: No anemia. No purpura. No petechiae. No prolonged or excessive bleeding. No palpable lymph nodes. PHYSICAL EXAMINATION: VITAL SIGNS: Temperature 98.1, pulse 80, respiratory rate 20, BP 137/88. Pulse ox 94%. HEENT: Head normocephalic, atraumatic. Eyes: Extraocular muscles are intact. Pupils are equal, round and reactive to light and accommodation. Ears: No lesions. Nose appeared normal. Throat: No exudate or erythema. NECK: Supple. No JVD, no carotid bruit. No lymphadenopathy or thyromegaly. LUNGS: Decreased breath sounds. Clear to auscultation. Percussion note normal. Chest symmetrical. HEART: S1, S2, no S3. No murmurs. No cyanosis or clubbing. No ascites. Pulses: Dorsalis pedis and posterior tibial pulses +1 to +2 bilaterally. ABDOMEN: Soft. Nontender. Bowel sounds active. No CVA tenderness. No mass felt. EXTREMITIES: No edema. Full range of motion of all extremities, equal. NEUROLOGIC: No focal deficit. Cranial nerves II through XII are grossly intact. No headache. No double vision. SKIN: Not dry. Intact. Turgor - normal. LYMPHATIC: No palpable lymph nodes/no lymphedema. MUSCULOSKELETAL: Normal joints with no swelling. Muscle tone is normal. LABS: Hemoglobin 11.2, hematocrit 35, WBC 10,000, normal differential. Creatinine 0.6, BUN 14, potassium 2.7. ASSESSMENT: 1. PNEUMONIA WITH RESPIRATORY FAILURE SEEMS TO BE UNDER CONTROL. 2. LUNG METS LIKELY FROM ANAPLASTIC THYROID CANCER. 3. SHOULDER PAIN, BONE PAIN COULD BE FROM BONE METASTASIS. 4. HYPOKALEMIA. 5. HISTORY OF CHF. 6. ATRIAL FIBRILLATION. PLAN: 1. Continue all the patient's medications. 2. Potassium supplements will be increased to K-tab 20 mEq four times a day. 3. Continue steroids, nebs. 4. May give her Toradol one dose then put her on stronger pain medications, Oxycodone. CONDITION: Stable. The patient is DNR. The family has already been made aware of the findings. TIME SPENT: More than 30 minutes. Plan and coordination of the patient's care discussed in the presence of nurse. WOOD
[2021-04-16] MEDS: ALBUTEROL 0.083% NEB NEB SCH ×3 (04:45→20:15)
[2021-04-16] MEDS: PULMICORT 1 MG/2 ML NEB SCH ×2 (04:45→20:15)
[2021-04-16] MEDS: SOLU-CORTEF 100 MG IVP SCH (05:25)
[2021-04-16 05:41] LABS: BASOPHILS % (AUTO) 0.2 % (0.0-3.0); EOSINOPHILS % (AUTO) 0.1 % (0.0-7.0); HEMATOCRIT 40.5 % (37.0-47.0); HEMOGLOBIN 12.5 g/dl (12.0-16.0); IMMATURE GRANULOCYTE # (AUTO) 0.1 (0.0-1.0); IMMATURE GRANULOCYTE % (AUTO) 0.8 % (0.0-5.0); LYMPHOCYTES # (AUTO) 0.6 K/uL (0.60-3.4); LYMPHOCYTES % (AUTO) 5.7 (10.0-50.0); MEAN CORPUSCULAR HEMOGLOBIN 24.7 pg (27.0-31.0); MEAN CORPUSCULAR HGB CONC 30.9 (31.8-35.4); MONOCYTES # (AUTO) 0.5 K/uL (0.4-2.0); MONOCYTES % (AUTO) 4.7 (0-10); NEUTROPHILS # (AUTO) 9.7 K/ul (2.0-6.9); NEUTROPHILS % (AUTO) 88.5 % (42.2-75.2); PLATELET COUNT 297 10^3/uL (140-440); RED BLOOD COUNT 5.06 10^6/ul (4.20-5.40)
[2021-04-16] MEDS: PROTONIX PO SCH ×2 (05:42→17:38)
[2021-04-16] MEDS: LEVAQUIN PO SCH (05:42)
[2021-04-16] MEDS: ULTRAM PO PRN (05:50)
[2021-04-16 06:26] LABS: ALANINE AMINOTRANSFERASE 35.3 U/L (0-35); ALBUMIN 3.65 g/dL (3.5-5.0); ALKALINE PHOSPHATASE 47.3 U/L (53-141); ASPARTATE AMINO TRANSFERASE 28.5 U/L (14-36); BILIRUBIN,TOTAL 0.47 mg/dL (0.2-1.3); BLOOD UREA NITROGEN 15.7 mg/dL (7-17); CALCIUM 8.6 mg/dL (8.4-10.2); CHLORIDE 85.9 mmol/L (98-107); CREATININE 0.64 mg/dL (0.60-1.30); GLUCOSE 151.2 mg/dL (74-106); POTASSIUM 3.79 mmol/L (3.5-5.1); SODIUM 134.8 mmol/L (134.5-145); TOTAL PROTEIN 6.51 g/dL (6.3-8.2)
[2021-04-16 06:30] LABS: CARBON DIOXIDE 38.4 mmol/L (22-30.0)
[2021-04-16] MEDS: CALAN SR PO SCH (08:49)
[2021-04-16] MEDS: HYZAAR 50-12.5 MG TAB PO SCH (08:49)
[2021-04-16] MEDS: GLUCOPHAGE PO SCH ×2 (08:50→17:38)
[2021-04-16] MEDS: FLONASE NAS SCH (08:50)
[2021-04-16] MEDS: K-DUR PO SCH ×3 (08:50→17:38)
[2021-04-16] MEDS: ELIQUIS PO SCH ×2 (08:54→20:17)
[2021-04-16] MEDS: NYSTOP POWDER TP SCH ×3 (08:54→21:15)
[2021-04-16] MEDS ORDERED: LASIX IVP ONE (09:29)
--- NOTE | 2021-04-16 09:54 | PCM.PROG ---
Attending Provider: ATTENDING PROVIDER: Dr. OANH SULLIVAN This patient is seen with Irina Queen, Nurse Practitioner. DATE OF SERVICE: 04/16/21 SUBJECTIVE: This 80 year old /WHITE F was hospitalized 04/10/21. The patient is more alert this morning. She has been eating well, is feeling more short of breath when lying down. After talking with family, plan is likely to go to [facility]. REVIEW OF SYSTEMS: CONSTITUTIONAL: Weakness. No night sweats. No fatigue, malaise, lethargy. No fever or chills. HEENT: Eyes: No visual changes. No eye pain. No eye discharge. ENT: No runny nose. No epistaxis. No sinus pain. No odynophagia. No congestion. RESPIRATORY: Shortness of breath. Cough. No hemoptysis. CARDIOVASCULAR: No angina symptoms. No CHF symptoms. No atypical chest pain for CAD. No palpitations. No orthopnea.. GASTROINTESTINAL: No abdominal pain. No nausea or vomiting. No diarrhea or constipation. No hematemesis. No hematochezia. GENITOURINARY: No urgency. No frequency. No dysuria. No hematuria. No obstructive symptoms. No discharge. No pain. No significant abnormal bleeding. MUSCULOSKELETAL: Neck pain. NEUROLOGICAL: Awake, alert, intermittent confusion. No headache. No neck pain. No syncope. No seizures. No dizziness. PSYCHIATRIC: Not anxious. No depression. No suicidal thoughts. No homicidal thoughts. SKIN: No rash. No lesions. No wounds. ENDOCRINE: No unexplained weight loss. No weight gain. HEMATOLOGIC/LYMPHATIC: No anemia. No purpura. No petechiae. No prolonged or excessive bleeding. No palpable lymph nodes. PHYSICAL EXAMINATION: GENERAL: The patient is awake, alert and oriented, lying/sitting in bed in no distress. VITAL SIGNS: Temperature 97.8 F, Pulse 105, Respiratory Rate 18, BP 147/83, Pulse Ox 93% HEENT: Head normocephalic, atraumatic. Eyes: Extraocular muscles are intact. Pupils are equal, round and reactive to light and accommodation. Ears: No lesions. Nose appeared normal. Throat: No exudate or erythema. NECK: Supple. No JVD, no carotid bruit. No lymphadenopathy or thyromegaly. LUNGS: Diminished breath sounds. Clear to auscultation. Percussion note normal. Chest symmetrical. HEART: S1, S2, no S3. No murmurs. No cyanosis or clubbing. No ascites. Pulses: Dorsalis pedis and posterior tibial pulses +1 to +2 both sides. ABDOMEN: Soft. Non-tender. Bowel sounds active. No CVA tenderness. No mass felt. EXTREMITIES: +1 bilateral lower extremity edema. Full range of motion of all extremities, equal. NEUROLOGIC: No focal deficit. Cranial nerves II through XII are grossly intact. No headache. No double vision. SKIN: Not dry. Intact. Turgor-normal. LYMPHATIC: No palpable lymph nodes/no lymphedema. MUSCULOSKELETAL: Normal joints with no swelling. Muscle tone is normal. LAB REVIEW: 04/16/21 05:07 04/16/21 05:07 04/16/21 05:07: Sodium 134.8, Potassium 3.79, Chloride 85.9 L, Carbon Dioxide 38 .4 H, Anion Gap 14.29, BUN 15.7, Creatinine 0.64, Estimated GFR (MDRD) 89.00, BUN/Creatinine Ratio 24.53, Glucose 151.2 H, Calcium 8.60, Total Bilirubin 0.47, AST 28.5, ALT 35.3 H, Alkaline Phosphatase 47.3 L, Total Protein 6.51, Albumin 3.65, Globulin 2.86, Albumin/Globulin Ratio 1.27 04/16/21 05:07: WBC 11.00 H, RBC 5.06, Hgb 12.5, Hct 40.5, MCV 80.0 L, MCH 24.7 L, MCHC 30.9 L, RDW Coeff of Melissa 18.0 H, Plt Count 297, Immature Gran % (Auto) 0.8, Neut % (Auto) 88.5 H, Lymph % (Auto) 5.7 L, [place] % (Auto) 4.7, Eos % (Auto) 0.1, Baso % (Auto) 0.2, Neut # (Auto) 9.7 H, Lymph # (Auto) 0.6, [place] # (Auto) 0.5, Eos # (Auto) 0.0, Baso # (Auto) 0.0, Immature Gran # (Auto) 0.1 ASSESSMENT: Please see below. 1. Bilateral pneumonia. 2. 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 3. Respiratory failure, chronic. 4. Hypokalemia. 5. Generalized weakness. PLAN: 1. Lasix 20 mg IV today. 2. Percocet 7.5 mg LAZARO t.i.d. 3. Prednisone 20 mg b.i.d. 4. D/C Solu-Cortef. Plan and coordination of the patient's care discussed in the presence of Transition Manager and nurse. CONDITION: Stable SCRIBED BY: HASMUKH MCKEON [employer] scribed while in presence of service performed by Dr. Sullivan/Irina Queen APRN on 04/16/21 ([id number])
[2021-04-16] MEDS: PERCOCET 7.5-325 PO SCH ×3 (10:06→20:17)
--- NOTE | 2021-04-16 14:37 | PN ---
DATE OF SERVICE: 04/14/21 SUBJECTIVE: 80-year-old white female hospitalized with bilateral pneumonia. On further workup the patient had respiratory failure along with metastatic disease of both lungs, mediastinal lymphadenopathy. The patient also has local extension of the thyroid cancer. She has anaplastic thyroid cancer along with micropapillary carcinoma. The patient has metastasized. Dr. Banks had predicated that. There was a long conference in the office with the family members done by Nurse Practitioner, Irina. At that time it was decided that the patient would ultimately may end up on hospice. The pain is more or less controlled. Condition seems to be stabilizing. The patient was seen and examined with the nurse practitioner. TIME SPENT: EXTENSIVE Plan and coordination of the patient's care discussed in the presence of nurse. WOOD
--- NOTE | 2021-04-16 14:48 | PN ---
DATE OF SERVICE: 04/15/21 SUBJECTIVE: 80-year-old white female hospitalized with bilateral pneumonia, respiratory failure. 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 The patient also had local extension. The patient has dilated cardiomyopathy with obesity, atrial fibrillation, diabetes mellitus, hypertension. REVIEW OF SYSTEMS: CONSTITUTIONAL: No night sweats. No fatigue, malaise, lethargy. No fever or chills. HEENT: Eyes: No visual changes. No eye pain. No eye discharge. ENT: No runny nose. No epistaxis. No sinus pain. No sore throat. No odynophagia. No congestion. RESPIRATORY: No cough, no congestion. No hemoptysis. No shortness of breath. CARDIOVASCULAR: No angina symptoms. No CHF symptoms. No atypical chest pain for CAD. No palpitations. No PND. No orthopnea. GASTROINTESTINAL: No abdominal pain. No nausea or vomiting. No diarrhea or constipation. No hematemesis. No hematochezia. GENITOURINARY: No urgency. No frequency. No dysuria. No hematuria. No obstructive symptoms. No discharge. No pain. No significant abnormal bleeding. MUSCULOSKELETAL: Shoulder pain listed as 4 to 5 on a scale of 1 to 10. NEUROLOGICAL: No headache. No neck pain. No syncope. No seizures. No dizziness. PSYCHIATRIC: Not anxious. No depression. No suicidal thoughts. No homicidal thoughts. SKIN: No rash. No lesions. No wounds. ENDOCRINE: No unexplained weight loss. No weight gain. HEMATOLOGIC/LYMPHATIC: No anemia. No purpura. No petechiae. No prolonged or excessive bleeding. No palpable lymph nodes. PHYSICAL EXAMINATION: GENERAL: The patient looks somewhat pale. VITAL SIGNS: Temperature 97.4, pulse 75, respiratory rate 18, BP 135/94, pulse ox 96% on 2L. HEENT: Head normocephalic, atraumatic. Eyes: Extraocular muscles are intact. Pupils are equal, round and reactive to light and accommodation. Ears: No lesions. Nose appeared normal. Throat: No exudate or erythema. NECK: Supple. No JVD, no carotid bruit. No lymphadenopathy or thyromegaly. LUNGS: Decreased breath sounds, practically absent breath sounds on the right side. Clear to auscultation. Percussion note normal. Chest symmetrical. HEART: S1, S2 distant, no S3. No murmurs. No cyanosis or clubbing. No ascites. Pulses: Dorsalis pedis and posterior tibial pulses +1 to +2 bilaterally. ABDOMEN: Soft. Nontender. Bowel sounds active. No CVA tenderness. No mass felt. EXTREMITIES: Trace edema. Full range of motion of all extremities, equal. NEUROLOGIC: No focal deficit. Cranial nerves II through XII are grossly intact. No headache. No double vision. SKIN: Not dry. Intact. Turgor - normal. LYMPHATIC: No palpable lymph nodes/no lymphedema. MUSCULOSKELETAL: Normal joints with no swelling. Muscle tone is normal. ASSESSMENT: 1. 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 2. Possibility of bilateral pneumonia, atelectasis with respiratory failure. 3. Diabetes mellitus. 4. Hypertension. 5. Dilated cardiomyopathy. 6. Atrial fibrillation. 7. CHF. 8. Morbid obesity. PLAN: 1. Treat the patient with medication. Oxycodone has been increased to 7.5 mg q.4 thought to be given one dose IV 30 mg. 2. The patient's hypokalemia seems to have resolved with potassium of 3.7 today. 3. The patient's son-in-law Sebastian is present in the room, discussed the case. TIME SPENT: More than 30 minutes. CONDITION: Otherwise stable. Plan and coordination of the patient's care discussed in the presence of nurse. WOOD
[2021-04-16] MEDS: PREDNISONE PO SCH (17:38)
[2021-04-17] MEDS: ALBUTEROL 0.083% NEB NEB SCH ×3 (04:30→20:45)
[2021-04-17] MEDS: PULMICORT 1 MG/2 ML NEB SCH ×2 (04:30→20:48)
[2021-04-17 05:28] LABS: BASOPHILS % (AUTO) 0.1 % (0.0-3.0); EOSINOPHILS % (AUTO) 0.2 % (0.0-7.0); HEMATOCRIT 41.1 % (37.0-47.0); HEMOGLOBIN 12.7 g/dl (12.0-16.0); IMMATURE GRANULOCYTE # (AUTO) 0.1 (0.0-1.0); IMMATURE GRANULOCYTE % (AUTO) 0.5 % (0.0-5.0); LYMPHOCYTES # (AUTO) 0.6 K/uL (0.60-3.4); LYMPHOCYTES % (AUTO) 4.9 (10.0-50.0); MEAN CORPUSCULAR HEMOGLOBIN 24.7 pg (27.0-31.0); MEAN CORPUSCULAR HGB CONC 30.9 (31.8-35.4); MEAN CORPUSCULAR VOLUME 79.8 fl (81.0-99.0); MONOCYTES # (AUTO) 0.7 K/uL (0.4-2.0); MONOCYTES % (AUTO) 5.9 (0-10); NEUTROPHILS # (AUTO) 10.4 K/ul (2.0-6.9); NEUTROPHILS % (AUTO) 88.4 % (42.2-75.2); PLATELET COUNT 305 10^3/uL (140-440); RDW COEFFICIENT OF VARIATION 17.9 % (11.6-14.8); RED BLOOD COUNT 5.15 10^6/ul (4.20-5.40); WHITE BLOOD COUNT 11.81 K/ul (4.6-10.2)
[2021-04-17] MEDS: PROTONIX PO SCH ×2 (05:34→17:34)
[2021-04-17 05:43] LABS: ALBUMIN 3.52 g/dL (3.5-5.0); ALKALINE PHOSPHATASE 61.2 U/L (53-141); ASPARTATE AMINO TRANSFERASE 26.2 U/L (14-36); BILIRUBIN,TOTAL 0.41 mg/dL (0.2-1.3); BLOOD UREA NITROGEN 18.7 mg/dL (7-17); CALCIUM 8.72 mg/dL (8.4-10.2); CHLORIDE 85.2 mmol/L (98-107); CREATININE 0.74 mg/dL (0.60-1.30); GLUCOSE 120.3 mg/dL (74-106); POTASSIUM 4.51 mmol/L (3.5-5.1); SODIUM 132.4 mmol/L (134.5-145); TOTAL PROTEIN 6.36 g/dL (6.3-8.2)
[2021-04-17 05:52] LABS: CARBON DIOXIDE 41.2 mmol/L (22-30.0)
--- NOTE | 2021-04-17 08:48 | RS.OTINEVL ---
Subjective - Patient information Date of Evaluation: 04/13/21 Date of Arrival on Unit: 04/10/21 Admitted From:: Emergency Dept Diagnosis: Hypokalemia, falls, bilateral pneumonia PRECAUTIONS: fall risk Usual Living Arrangement: Alone Living Arrangement Comments: pt lives alone, no steps to enter home Home Environment: House, Level/No stairs Medical History: Hypertension, COPD, Diabetes, CHF Medical History Comments:: neuropathy, metabolic syndrome, asthma, CAD, osteopenia, afib Surgical History: Knee Replacement (BLE), Cholecystectomy, Hysterectomy Surgical History Comments:: thyroid surgery Medications: see chart Subjective Information/ Patient Comments:: Pt reports she has swelling on the right side of her neck into her shoulder. Pt reports it is sensitive to touch. - Level of function Prior to this admission, the patient could do the following:: Independent Selfcare, Independent ADL's, Independent Ambulation, Drive Abilities prior to this admission: Pt was independent with ADLS such as dressing, bathing, and walking with a RW. Pt would go to the grocery with her daughter on Sundays. Pt would walk holding on to the cart. Pt has [employer] come in to help with cleaning her house. Current Level of Function: Independent Current Equipment Used at Home: Bed side commode in her bedroom for toileting in the night. Pain Assessment - Pain Pain Score: 6 Side: right Pain Location Body Site: Neck Pain Aggravating Factors: Changing Position Pain Alleviating Factors: Medication Interventions - Objective Patient Orientation: Person, Place, Situation Current Interventions: IV's, Oxygen, Telemetry Observation: Pt appears weak, SOA, and fatigued. Pt requires 2 person CGA to Min to stand and Minimal assistance with walking with RW. Interventions - ROM Right Upper Extremity AROM: Slight limitation Left Upper Extremity AROM: Slight limitation - Strength Right Upper Extremity Strength: Mild Weakness Left Upper Extremity Strength: Mild Weakness - Sensation Right Upper Extremity Sensation: Intact/Normal Left Upper Extremity Sensation: Intact/Normal Balance - Sitting Balance Static Sitting Balance: Good Dynamic Sitting Balance: Good - Standing Balance Static Standing Balance: Fair Dynamic Standing Balance: Fair ADL Skills - Self Feeding Self Feeding: Independent - Grooming Grooming: Mod Assist - Dressing Dressing UE: Min Assist Dressing LE: Mod Assist - Toilet Management Toileting Management: Mod Assist, 2 person assist Functional Mobility - Transfers Sit to Stand: Min Assist Stand to Sit: Min Assist Stand Pivot Transfers: Mod Assist - Ambulation Weight Bearing Status: FWB Assistive Device Used: Rolling Walker Assistance needed with Ambulation: Mod Assist - Safety Awareness Safety Awareness: Fair CHANDANA INDEX SCORE: . Additional Treatment Performed - Time with patient Length of Evaluation: 20 Total treatment time: 20 Activities Would you be interested in leaving your room for activities?: Yes Would you enjoy group activities?: Yes Do you have difficulty with your vision?: Yes Patient Interests:: Watching Television, Visiting/Socializing Patient Education Patient Education: Education of diagnosis, Home Safety, Education of Plan of Care Teaching Recipient: Patient Teaching Methods: Discussion Assessment Problem List:: Decreased level of function, Decreased safety/Risk of falls, Weakness Rehab Potential: Fair Further Therapy Indicated?: Yes Evaluation Complexity: HISTORY: Medium, EXAM OF BODY SYSTEMS: Medium, CLINICAL DECISION MAKING: Medium Patient's Goal(s): To get stronger and be able to go back home. Short Term Goals - Goals GOAL 1: Pt to increase dynamic standing balance to Fair+. Goal to be met by: 04/17/21 GOAL 2: Pt to increase activity tolerance to 10 minutes. Goal to be met by: 04/17/21 GOAL 3: Pt to increase self care management to CGA. Goal to be met by: 04/17/21 GOAL 4: Pt to increase BUE strength to 4+/5. Goal to be met by: 04/17/21 Safety Fire Boss Goals GOAL 1: Pt to be Independent with ADLS. Goal to be met by: 03/24/21 GOAL 2: Pt to increase BUE strength to 5/5. Goal to be met by: 03/24/21 GOAL 3: Pt to increase activity tolerance to 15 minutes with rests PRN. Goal to be met by: 03/24/21 Plan Plan of Care: Therapeutic EX, Therapeutic Activity, Self-Care/Home Management Frequency of Treatment: 1-2 X day, as tolerated Duration of Treatment: 2 Weeks Anticipated Discharge Destination: Home Treatment Diagnosis (ICD 10 Codes): Weakness R53.1 Has the Physician been added for Co-signature?: Yes
[2021-04-17] MEDS: PREDNISONE PO SCH ×2 (09:14→10:27)
[2021-04-17] MEDS: GLUCOPHAGE PO SCH ×2 (09:14→17:34)
[2021-04-17] MEDS: CALAN SR PO SCH (09:14)
[2021-04-17] MEDS: HYZAAR 50-12.5 MG TAB PO SCH (09:14)
[2021-04-17] MEDS: PERCOCET 7.5-325 PO SCH ×3 (09:15→20:24)
[2021-04-17] MEDS: ZAROXOLYN PO SCH (09:15)
[2021-04-17] MEDS: K-DUR PO SCH ×3 (09:15→17:34)
[2021-04-17] MEDS: FLONASE NAS SCH (09:15)
[2021-04-17] MEDS: NYSTOP POWDER TP SCH ×3 (09:16→21:33)
[2021-04-17] MEDS: ELIQUIS PO SCH ×2 (09:16→20:24)
--- NOTE | 2021-04-17 09:43 | PCM.PROG ---
Attending Provider: ATTENDING PROVIDER: Dr. OANH SULLIVAN This patient is seen with Irina Queen, Nurse Practitioner. DATE OF SERVICE: 04/17/21 SUBJECTIVE: This 80 year old /WHITE F was hospitalized 04/10/21. The patient is resting comfortably. Speech therapy with her this morning. States she has done well. Scheduled pain medication has controlled her pain. REVIEW OF SYSTEMS: CONSTITUTIONAL: No night sweats. No fatigue, malaise, lethargy. No fever or chills. Weakness. HEENT: Eyes: No visual changes. No eye pain. No eye discharge. ENT: No runny nose. No epistaxis. No sinus pain. No odynophagia. No congestion. RESPIRATORY: Cough, no congestion. No hemoptysis. No shortness of breath. CARDIOVASCULAR: No angina symptoms. No CHF symptoms. No atypical chest pain for CAD. No palpitations. No orthopnea.. GASTROINTESTINAL: No abdominal pain. No nausea or vomiting. No diarrhea or constipation. No hematemesis. No hematochezia. GENITOURINARY: No urgency. No frequency. No dysuria. No hematuria. No obstructive symptoms. No discharge. No pain. No significant abnormal bleeding. MUSCULOSKELETAL: No musculoskeletal pain; no joint swelling. Neck pain. NEUROLOGICAL: Awake, alert, confusion. No headache. No neck pain. No syncope. No seizures. No dizziness. PSYCHIATRIC: Not anxious. No depression. No suicidal thoughts. No homicidal thoughts. SKIN: No rash. No lesions. No wounds. ENDOCRINE: No unexplained weight loss. No weight gain. HEMATOLOGIC/LYMPHATIC: No anemia. No purpura. No petechiae. No prolonged or excessive bleeding. No palpable lymph nodes. PHYSICAL EXAMINATION: GENERAL: The patient is awake, alert and oriented to person and place not time, sitting in bed in no distress. VITAL SIGNS: Temperature 97.1 F, Pulse 96, Respiratory Rate 20, BP 163/82, Pulse Ox 98% HEENT: Head normocephalic, atraumatic. Eyes: Extraocular muscles are intact. Pupils are equal, round and reactive to light and accommodation. Ears: No les ions. Nose appeared normal. Throat: No exudate or erythema. NECK: Supple. No JVD, no carotid bruit. No lymphadenopathy or thyromegaly. LUNGS: Diminished breath sounds. Clear to auscultation. Percussion note normal. Chest symmetrical. HEART: S1, S2, no S3. No murmurs. No cyanosis or clubbing. No ascites. Pulses: Dorsalis pedis and posterior tibial pulses +1 to +2 both sides. ABDOMEN: Soft. Non-tender. Bowel sounds active. No CVA tenderness. No mass felt. EXTREMITIES: No edema. Full range of motion of all extremities, equal. NEUROLOGIC: No focal deficit. Cranial nerves II through XII are grossly intact. No headache. No double vision. SKIN: Not dry. Intact. Turgor-normal. LYMPHATIC: No palpable lymph nodes/no lymphedema. MUSCULOSKELETAL: Normal joints with no swelling. Muscle tone is normal. LAB REVIEW: 04/17/21 04:53 04/17/21 04:53 04/17/21 04:53: Sodium 132.4 L, Potassium 4.51, Chloride 85.2 L, Carbon Dioxide 41.2 H*, Anion Gap 10.51, BUN 18.7 H, Creatinine 0.74, Estimated GFR (MDRD) 75.00, BUN/Creatinine Ratio 25.27, Glucose 120.3 H, Calcium 8.72, Total Bilirubin 0.41, AST 26.2, ALT 32.0, Alkaline Phosphatase 61.2, Total Protein 6.36, Albumin 3.52, Globulin 2.84, Albumin/Globulin Ratio 1.23 04/17/21 04:53: WBC 11.81 H, RBC 5.15, Hgb 12.7, Hct 41.1, MCV 79.8 L, MCH 24.7 L, MCHC 30.9 L, RDW Coeff of Melissa 17.9 H, Plt Count 305, Immature Gran % (Auto) 0.5, Neut % (Auto) 88.4 H, Lymph % (Auto) 4.9 L, [place] % (Auto) 5.9, Eos % (Auto) 0.2, Baso % (Auto) 0.1, Neut # (Auto) 10.4 H, Lymph # (Auto) 0.6, [place] # (Auto) 0.7, Eos # (Auto) 0.0, Baso # (Auto) 0.0, Immature Gran # (Auto) 0.1 ASSESSMENT: Please see below. 1. Bilateral pneumonia. 2. 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 3. Respiratory failure, chronic. 4. Hypokalemia. 5. Generalized weakness. PLAN: 1. Continue pain medication 2. Prednisone 20mg daily 3. Xanax 0.25mg at night. Plan and coordination of the patient's care discussed in the presence of Production Engine Repairer and nurse. EDUCATION: CONDITION: SCRIBED BY: NESTOR IBRAHIM Jigsawyer scribed while in presence of service performed by Dr. Sullivan/Irina Queen APRN on 04/17/21 ([id number])
--- NOTE | 2021-04-17 14:45 | PN ---
DATE OF SERVICE: 04/16/21 SUBJECTIVE: The patient was seen and examined today with the nurse practitioner. The patient seems to be better, in less pain. The oxygen saturation is more than 92% with 2L. The pain is getting under control. The family is still thinking about hospice. TIME SPENT: More than 30 minutes. Plan and coordination of the patient's care discussed in the presence of nurse. WOOD
[2021-04-17] MEDS: XANAX PO SCH (20:24)
[2021-04-18] MEDS: PROTONIX PO SCH ×2 (05:33→17:04)
[2021-04-18] MEDS: ALBUTEROL 0.083% NEB NEB SCH ×3 (05:38→19:59)
[2021-04-18] MEDS: PULMICORT 1 MG/2 ML NEB SCH ×2 (05:43→19:58)
[2021-04-18 05:49] LABS: BASOPHILS % (AUTO) 0.1 % (0.0-3.0); EOSINOPHILS # (AUTO) 0.2 K/ul (0.0-0.7); EOSINOPHILS % (AUTO) 1.6 % (0.0-7.0); HEMATOCRIT 42.2 % (37.0-47.0); HEMOGLOBIN 12.9 g/dl (12.0-16.0); IMMATURE GRANULOCYTE # (AUTO) 0.1 (0.0-1.0); IMMATURE GRANULOCYTE % (AUTO) 0.6 % (0.0-5.0); LYMPHOCYTES # (AUTO) 1.4 K/uL (0.60-3.4); LYMPHOCYTES % (AUTO) 9.7 (10.0-50.0); MEAN CORPUSCULAR HEMOGLOBIN 24.6 pg (27.0-31.0); MEAN CORPUSCULAR HGB CONC 30.6 (31.8-35.4); MEAN CORPUSCULAR VOLUME 80.4 fl (81.0-99.0); MONOCYTES # (AUTO) 0.9 K/uL (0.4-2.0); MONOCYTES % (AUTO) 6.3 (0-10); NEUTROPHILS # (AUTO) 11.6 K/ul (2.0-6.9); NEUTROPHILS % (AUTO) 81.7 % (42.2-75.2); PLATELET COUNT 302 10^3/uL (140-440); RDW COEFFICIENT OF VARIATION 18.5 % (11.6-14.8); RED BLOOD COUNT 5.25 10^6/ul (4.20-5.40); WHITE BLOOD COUNT 14.22 K/ul (4.6-10.2)
[2021-04-18 06:09] LABS: ALANINE AMINOTRANSFERASE 30.2 U/L (0-35); ALBUMIN 3.62 g/dL (3.5-5.0); ALKALINE PHOSPHATASE 60.4 U/L (53-141); ASPARTATE AMINO TRANSFERASE 25.5 U/L (14-36); BILIRUBIN,TOTAL 0.58 mg/dL (0.2-1.3); BLOOD UREA NITROGEN 19.6 mg/dL (7-17); CALCIUM 8.92 mg/dL (8.4-10.2); CHLORIDE 85.4 mmol/L (98-107); CREATININE 0.74 mg/dL (0.60-1.30); GLUCOSE 95.3 mg/dL (74-106); POTASSIUM 4.78 mmol/L (3.5-5.1); SODIUM 132.8 mmol/L (134.5-145); TOTAL PROTEIN 6.42 g/dL (6.3-8.2)
[2021-04-18 06:15] LABS: CARBON DIOXIDE 37.1 mmol/L (22-30.0)
[2021-04-18] MEDS: ULTRAM PO PRN (07:43)
[2021-04-18] MEDS: CALAN SR PO SCH (09:50)
[2021-04-18] MEDS: ELIQUIS PO SCH ×2 (09:50→21:02)
[2021-04-18] MEDS: HYZAAR 50-12.5 MG TAB PO SCH (09:50)
[2021-04-18] MEDS: GLUCOPHAGE PO SCH ×2 (09:50→17:04)
[2021-04-18] MEDS: PREDNISONE PO SCH (09:51)
[2021-04-18] MEDS: K-DUR PO SCH ×3 (09:51→17:04)
[2021-04-18] MEDS: PERCOCET 7.5-325 PO SCH ×3 (09:51→21:02)
[2021-04-18] MEDS: FLONASE NAS SCH (09:52)
[2021-04-18] MEDS: NYSTOP POWDER TP SCH ×3 (09:52→22:02)
[2021-04-18] MEDS: XANAX PO SCH (21:02)
[2021-04-19] MEDS: ALBUTEROL 0.083% NEB NEB SCH ×3 (05:24→20:16)
[2021-04-19] MEDS: PULMICORT 1 MG/2 ML NEB SCH ×2 (05:24→20:19)
[2021-04-19 05:51] LABS: BASOPHILS % (AUTO) 0.2 % (0.0-3.0); EOSINOPHILS # (AUTO) 0.2 K/ul (0.0-0.7); EOSINOPHILS % (AUTO) 1.3 % (0.0-7.0); HEMATOCRIT 43.8 % (37.0-47.0); HEMOGLOBIN 13.4 g/dl (12.0-16.0); IMMATURE GRANULOCYTE # (AUTO) 0.1 (0.0-1.0); IMMATURE GRANULOCYTE % (AUTO) 0.7 % (0.0-5.0); LYMPHOCYTES # (AUTO) 1.3 K/uL (0.60-3.4); LYMPHOCYTES % (AUTO) 8.4 (10.0-50.0); MEAN CORPUSCULAR HEMOGLOBIN 24.7 pg (27.0-31.0); MEAN CORPUSCULAR HGB CONC 30.6 (31.8-35.4); MEAN CORPUSCULAR VOLUME 80.7 fl (81.0-99.0); MONOCYTES % (AUTO) 6.4 (0-10); NEUTROPHILS # (AUTO) 12.3 K/ul (2.0-6.9); PLATELET COUNT 326 10^3/uL (140-440); RDW COEFFICIENT OF VARIATION 18.1 % (11.6-14.8); RED BLOOD COUNT 5.43 10^6/ul (4.20-5.40); WHITE BLOOD COUNT 14.82 K/ul (4.6-10.2)
[2021-04-19 06:10] LABS: ALANINE AMINOTRANSFERASE 31.1 U/L (0-35); ALBUMIN 3.78 g/dL (3.5-5.0); ALKALINE PHOSPHATASE 64.6 U/L (53-141); ASPARTATE AMINO TRANSFERASE 31.1 U/L (14-36); BILIRUBIN,TOTAL 0.68 mg/dL (0.2-1.3); BLOOD UREA NITROGEN 20.4 mg/dL (7-17); CALCIUM 8.88 mg/dL (8.4-10.2); CHLORIDE 83.7 mmol/L (98-107); CREATININE 0.79 mg/dL (0.60-1.30); GLUCOSE 93.9 mg/dL (74-106); POTASSIUM 4.95 mmol/L (3.5-5.1); SODIUM 132.2 mmol/L (134.5-145); TOTAL PROTEIN 6.69 g/dL (6.3-8.2)
[2021-04-19] MEDS: PROTONIX PO SCH ×2 (06:12→17:30)
[2021-04-19] MEDS: HYZAAR 50-12.5 MG TAB PO SCH (09:15)
[2021-04-19] MEDS: PREDNISONE PO SCH (09:16)
[2021-04-19] MEDS: CALAN SR PO SCH (09:16)
[2021-04-19] MEDS: GLUCOPHAGE PO SCH (09:16)
[2021-04-19] MEDS: PERCOCET 7.5-325 PO SCH ×3 (09:16→20:58)
[2021-04-19] MEDS: FLONASE NAS SCH (09:16)
[2021-04-19] MEDS: NYSTOP POWDER TP SCH ×3 (09:17→21:00)
[2021-04-19] MEDS: K-DUR PO SCH ×4 (09:17→17:30)
[2021-04-19] MEDS: ELIQUIS PO SCH ×2 (09:18→20:58)
[2021-04-19] MEDS: XANAX PO SCH (20:58)
[2021-04-20] MEDS: ULTRAM PO PRN (05:13)
[2021-04-20] MEDS: ALBUTEROL 0.083% NEB NEB SCH ×2 (05:23→14:10)
[2021-04-20] MEDS: PULMICORT 1 MG/2 ML NEB SCH (05:24)
[2021-04-20] MEDS: PROTONIX PO SCH ×2 (06:02→16:04)
[2021-04-20] MEDS: CALAN SR PO SCH (08:15)
[2021-04-20] MEDS: PREDNISONE PO SCH (08:16)
[2021-04-20] MEDS: K-DUR PO SCH ×3 (08:16→16:04)
[2021-04-20] MEDS: PERCOCET 7.5-325 PO SCH ×3 (08:16→20:13)
[2021-04-20] MEDS: ZAROXOLYN PO SCH (08:16)
[2021-04-20] MEDS: HYZAAR 50-12.5 MG TAB PO SCH (08:16)
[2021-04-20] MEDS: NYSTOP POWDER TP SCH ×3 (08:17→20:14)
[2021-04-20] MEDS: FLONASE NAS SCH (08:17)
[2021-04-20] MEDS: ELIQUIS PO SCH ×2 (08:17→20:13)
[2021-04-20 09:57] LABS: BASOPHILS % (AUTO) 0.1 % (0.0-3.0); EOSINOPHILS # (AUTO) 0.1 K/ul (0.0-0.7); EOSINOPHILS % (AUTO) 0.7 % (0.0-7.0); HEMATOCRIT 40.1 % (37.0-47.0); HEMOGLOBIN 12.5 g/dl (12.0-16.0); IMMATURE GRANULOCYTE # (AUTO) 0.1 (0.0-1.0); IMMATURE GRANULOCYTE % (AUTO) 0.7 % (0.0-5.0); LYMPHOCYTES # (AUTO) 0.8 K/uL (0.60-3.4); LYMPHOCYTES % (AUTO) 5.4 (10.0-50.0); MEAN CORPUSCULAR HEMOGLOBIN 24.9 pg (27.0-31.0); MEAN CORPUSCULAR HGB CONC 31.2 (31.8-35.4); MEAN CORPUSCULAR VOLUME 79.9 fl (81.0-99.0); MONOCYTES # (AUTO) 0.9 K/uL (0.4-2.0); MONOCYTES % (AUTO) 6.3 (0-10); NEUTROPHILS # (AUTO) 12.9 K/ul (2.0-6.9); NEUTROPHILS % (AUTO) 86.8 % (42.2-75.2); PLATELET COUNT 261 10^3/uL (140-440); RDW COEFFICIENT OF VARIATION 17.8 % (11.6-14.8); RED BLOOD COUNT 5.02 10^6/ul (4.20-5.40); WHITE BLOOD COUNT 14.87 K/ul (4.6-10.2)
[2021-04-20 10:08] LABS: ALANINE AMINOTRANSFERASE 24.6 U/L (0-35); ALBUMIN 3.38 g/dL (3.5-5.0); ALKALINE PHOSPHATASE 64.2 U/L (53-141); ASPARTATE AMINO TRANSFERASE 29.2 U/L (14-36); BILIRUBIN,TOTAL 0.91 mg/dL (0.2-1.3); BLOOD UREA NITROGEN 17.7 mg/dL (7-17); CALCIUM 8.39 mg/dL (8.4-10.2); CHLORIDE 82.2 mmol/L (98-107); CREATININE 0.83 mg/dL (0.60-1.30); GLUCOSE 135.8 mg/dL (74-106); POTASSIUM 4.35 mmol/L (3.5-5.1); SODIUM 128.3 mmol/L (134.5-145); TOTAL PROTEIN 6.06 g/dL (6.3-8.2)
[2021-04-20 10:14] LABS: CARBON DIOXIDE 37.1 mmol/L (22-30.0)
[2021-04-20] MEDS: VENTOLIN HFA (PER PUFF-WITH SPACER) IH SCH (20:05)
[2021-04-20] MEDS: XANAX PO SCH (20:13)
[2021-04-20] MEDS: SYMBICORT 160-4.5 MCG INHALER IH SCH (21:54)
[2021-04-21 04:32] LABS: BASOPHILS % (AUTO) 0.2 % (0.0-3.0); EOSINOPHILS # (AUTO) 0.1 K/ul (0.0-0.7); EOSINOPHILS % (AUTO) 0.8 % (0.0-7.0); HEMOGLOBIN 12.6 g/dl (12.0-16.0); IMMATURE GRANULOCYTE # (AUTO) 0.1 (0.0-1.0); IMMATURE GRANULOCYTE % (AUTO) 0.5 % (0.0-5.0); LYMPHOCYTES % (AUTO) 8.5 (10.0-50.0); MEAN CORPUSCULAR HGB CONC 31.5 (31.8-35.4); MEAN CORPUSCULAR VOLUME 79.5 fl (81.0-99.0); MONOCYTES # (AUTO) 0.9 K/uL (0.4-2.0); MONOCYTES % (AUTO) 7.4 (0-10); NEUTROPHILS # (AUTO) 10.1 K/ul (2.0-6.9); NEUTROPHILS % (AUTO) 82.6 % (42.2-75.2); PLATELET COUNT 260 10^3/uL (140-440); RDW COEFFICIENT OF VARIATION 17.4 % (11.6-14.8); RED BLOOD COUNT 5.03 10^6/ul (4.20-5.40); WHITE BLOOD COUNT 12.18 K/ul (4.6-10.2)
[2021-04-21] MEDS: VENTOLIN HFA (PER PUFF-WITH SPACER) IH SCH (04:45)
[2021-04-21 04:46] LABS: ALANINE AMINOTRANSFERASE 39.3 U/L (0-35); ALBUMIN 3.62 g/dL (3.5-5.0); ALKALINE PHOSPHATASE 81.3 U/L (53-141); ASPARTATE AMINO TRANSFERASE 53.2 U/L (14-36); BILIRUBIN,TOTAL 0.99 mg/dL (0.2-1.3); BLOOD UREA NITROGEN 15.8 mg/dL (7-17); CALCIUM 8.52 mg/dL (8.4-10.2); CHLORIDE 77.6 mmol/L (98-107); CREATININE 0.84 mg/dL (0.60-1.30); GLUCOSE 101.5 mg/dL (74-106); POTASSIUM 3.92 mmol/L (3.5-5.1); SODIUM 125.9 mmol/L (134.5-145); TOTAL PROTEIN 6.46 g/dL (6.3-8.2)
[2021-04-21 04:58] LABS: CARBON DIOXIDE 42.5 mmol/L (22-30.0)
[2021-04-21] MEDS: PROTONIX PO SCH (05:55)
[2021-04-21] MEDS: K-DUR PO SCH ×2 (08:40→11:37)
[2021-04-21] MEDS: HYZAAR 50-12.5 MG TAB PO SCH (08:41)
[2021-04-21] MEDS: CALAN SR PO SCH (08:42)
[2021-04-21] MEDS: PERCOCET 7.5-325 PO SCH (08:43)
[2021-04-21] MEDS: PREDNISONE PO SCH (08:43)
[2021-04-21] MEDS: NYSTOP POWDER TP SCH (08:47)
[2021-04-21] MEDS: SYMBICORT 160-4.5 MCG INHALER IH SCH (08:48)
[2021-04-21] MEDS: FLONASE NAS SCH (08:49)
[2021-04-21] MEDS: ELIQUIS PO SCH (08:57)
--- NOTE | 2021-04-21 09:45 | PCM.PROG ---
Attending Provider: ATTENDING PROVIDER: Dr. OANH SULLIVAN This patient is seen with Irina Queen, Nurse Practitioner. DATE OF SERVICE: 04/21/21 SUBJECTIVE: This 80 year old /WHITE F was hospitalized 04/10/21. The patient is resting comfortably. She has been eating well. Sodium sightly lower this morning although asymptomatic. Plan to be discharged to [place] today with Hospice in place. Pain controlled. REVIEW OF SYSTEMS: CONSTITUTIONAL: Weakness. No night sweats. No fatigue, malaise, lethargy. No fever or chills. HEENT: Eyes: No visual changes. No eye pain. No eye discharge. ENT: No runny nose. No epistaxis. No sinus pain. No odynophagia. No congestion. RESPIRATORY: No cough, no congestion. No hemoptysis. No shortness of breath. CARDIOVASCULAR: No angina symptoms. No CHF symptoms. No atypical chest pain for CAD. No palpitations. No orthopnea.. GASTROINTESTINAL: No abdominal pain. No nausea or vomiting. No diarrhea or constipation. No hematemesis. No hematochezia. GENITOURINARY: No urgency. No frequency. No dysuria. No hematuria. No obstructive symptoms. No discharge. No pain. No significant abnormal bleeding. MUSCULOSKELETAL: Right neck pain. NEUROLOGICAL: Awake, alert, intermittent confusion. No headache. No neck pain. No syncope. No seizures. No dizziness. PSYCHIATRIC: Not anxious. No depression. No suicidal thoughts. No homicidal thoughts. SKIN: No rash. No lesions. No wounds. ENDOCRINE: No unexplained weight loss. No weight gain. HEMATOLOGIC/LYMPHATIC: No anemia. No purpura. No petechiae. No prolonged or excessive bleeding. No palpable lymph nodes. PHYSICAL EXAMINATION: GENERAL: The patient is awake, alert and oriented to person, lying/sitting in bed in no distress. VITAL SIGNS: Temperature 97.6 F, Pulse 95, Respiratory Rate 20, BP 142/78, Pulse Ox 95% HEENT: Head normocephalic, atraumatic. Eyes: Extraocular muscles are intact. Pupils are equal, round and reactive to light and accommodation. Ears: No lesions. Nose appeared normal. Throat: No exudate or erythema. NECK: Supple. No JVD, no carotid bruit. No lymphadenopathy or thyromegaly. LUNGS: Diminished breath sounds. Clear to auscultation. Percussion note normal. Chest symmetrical. HEART: Irregular heart rate. S1, S2, no S3. No murmurs. No cyanosis or clubbing. No ascites. Pulses: Dorsalis pedis and posterior tibial pulses +1 to +2 both sides. ABDOMEN: Soft. Non-tender. Bowel sounds active. No CVA tenderness. No mass felt. EXTREMITIES: No edema. Full range of motion of all extremities, equal. NEUROLOGIC: No focal deficit. Cranial nerves II through XII are grossly intact. No headache. No double vision. SKIN: Not dry. Intact. Turgor-normal. LYMPHATIC: No palpable lymph nodes/no lymphedema. MUSCULOSKELETAL: Normal joints with no swelling. Muscle tone is normal. LAB REVIEW: 04/21/21 04:12 04/21/21 04:12 04/21/21 04:12: Sodium 125.9 L, Potassium 3.92, Chloride 77.6 L, Carbon Dioxide 42.5 H*, Anion Gap 9.72, BUN 15.8, Creatinine 0.84, Estimated GFR (MDRD) 65.00, BUN/Creatinine Ratio 18.80, Glucose 101.5, Calcium 8.52, Total Bilirubin 0.99, AST 53.2 H, ALT 39.3 H, Alkaline Phosphatase 81.3, Total Protein 6.46, Albumin 3.62, Globulin 2.84, Albumin/Globulin Ratio 1.27 04/21/21 04:12: WBC 12.18 H, RBC 5.03, Hgb 12.6, Hct 40.0, MCV 79.5 L, MCH 25.0 L, MCHC 31.5 L, RDW Coeff of Melissa 17.4 H, Plt Count 260, Immature Gran % (Auto) 0.5, Neut % (Auto) 82.6 H, Lymph % (Auto) 8.5 L, [place] % (Auto) 7.4, Eos % (Auto) 0.8, Baso % (Auto) 0.2, Neut # (Auto) 10.1 H, Lymph # (Auto) 1.0, [place] # (Auto) 0.9, Eos # (Auto) 0.1, Baso # (Auto) 0.0, Immature Gran # (Auto) 0.1 04/20/21 09:55: Sodium 128.3 L, Potassium 4.35, Chloride 82.2 L, Carbon Dioxide 37.1 H, Anion Gap 13.35, BUN 17.7 H, Creatinine 0.83, Estimated GFR (MDRD) 66.00, BUN/Creatinine Ratio 21.32, Glucose 135.8 H, Calcium 8.39 L, Total Bilirubin 0.91, AST 29.2, ALT 24.6, Alkaline Phosphatase 64.2, Total Protein 6.06 L, Albumin 3.38 L, Globulin 2.68, Albumin/Globulin Ratio 1.26 04/20/21 09:55: WBC 14.87 H, RBC 5.02, Hgb 12.5, Hct 40.1, MCV 79.9 L, MCH 24.9 L, MCHC 31.2 L, RDW Coeff of Melissa 17.8 H, Plt Count 261, Immature Gran % (Auto) 0.7, Neut % (Auto) 86.8 H, Lymph % (Auto) 5.4 L, [place] % (Auto) 6.3, Eos % (Auto) 0.7, Baso % (Auto) 0.1, Neut # (Auto) 12.9 H, Lymph # (Auto) 0.8, [place] # (Auto) 0.9, Eos # (Auto) 0.1, Baso # (Auto) 0.0, Immature Gran # (Auto) 0.1 ASSESSMENT: Please see below. 1. Bilateral pneumonia. 2. 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 3. Respiratory failure, chronic. 4. Hypokalemia. 5. Generalized weakness. PLAN: 1. Discharge to [place]. 2. [facility]. 3. Prednisone 10 mEq daily times 5 days. 4. Hold Metolazone until tomorrow. Plan and coordination of the patient's care discussed in the presence of Access Nurse and nurse. CONDITION: Stable SCRIBED BY: HASMUKH MCKEON Senior Qc Technician scribed while in presence of service performed by Dr. Sullivan/Irina Queen APRN on 04/21/21 ([id number])
--- NOTE | 2021-04-21 11:40 | CM.DICTOOL ---
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 WILDER) ECHO 04/12/2021 LVEF 52% ENLARGED LEFT ATRIAL AND RIGHT VENTRICLE CAVITIES LAST VITALS Temp Pulse Resp BP Pulse Ox 97.6 F 95 H 20 142/78 H 95 04/21/21 05:11 04/21/21 05:11 04/21/21 05:11 04/21/21 05:11 04/21/21 05:11 TAKE THESE MEDICATIONS AT HOME Acetaminophen (Acetaminophen 325 Mg Tablet) 650 mg PO Q4H PRN PRN Reason: Fever >101or mild pain Last Admin: 04/15/21 06:07 Dose: 650 mg Documented by: Albuterol Sulfate (Albuterol Sulfate (Ventolin Hfa) 18 Gm 1 Puff With Spacer) 2 puff IH RTTID [facility] Last Admin: 04/21/21 04:45 Dose: 2 puff Documented by: Alprazolam (Alprazolam 0.25 Mg Tablet) 0.25 mg PO BEDTIME [facility] (RX) Last Admin: 04/20/21 20:13 Dose: 0.25 mg Documented by: Apixaban (Apixaban 5 Mg Tab) 5 mg PO BID [facility] Last Admin: 04/21/21 08:57 Dose: 5 mg Documented by: Budesonide/Formoterol Fumarate (Budesonide/Formoterol Fumarate 160/4.5 Mcg Inhaler) 2 puff IH BID [facility] Last Admin: 04/21/21 08:48 Dose: 2 puff Documented by: Fluticasone Propionate (Fluticasone Propionate 16 Gm Nasal [place]) 2 spray LAYA DAILY [facility] Last Admin: 04/21/21 08:49 Dose: 2 spray Documented by: HCTZ/Losartan Potassium (Losartan/Hydrochlorothiazide 50/12.5 Mg Tab) 0.5 tab PO DAILY [facility] Last Admin: 04/21/21 08:41 Dose: 0.5 tab Documented by: Metolazone (Metolazone 2.5 Mg Tablet) 2.5 mg PO MoWeFr@0800 LAZARO (HOLD ZAROXOLYN TOMORROW ONLY) Last Admin: 04/20/21 08:16 Dose: 2.5 mg Documented by: Nystatin (Nystatin 15 Gm Powder) 1 applic TP TID [facility] Last Admin: 04/21/21 08:47 Dose: 1 applic Documented by: Oxycodone/Acetaminophen (Oxycodone/Acetaminophen 7.5/325 Mg Tablet) 1 tab PO TID LAZARO (RX) Last Admin: 04/21/21 08:43 Dose: 1 tab Documented by: Pantoprazole Sodium (Pantoprazole Sodium 40 Mg Tablet.Dr) 40 mg PO BIDAC [facility] Last Admin: 04/21/21 05:55 Dose: 40 mg Documented by: Potassium Chloride (Potassium Chloride 20 Meq Tab) 20 meq PO TIDWM [facility] Last Admin: 04/21/21 08:40 Dose: 20 meq Documented by: Prednisone (Prednisone 20 Mg Tablet) 10 mg PO DAILYWM [facility] ( NEW DOSE IS 10 MG DAILY FOR 5 DAYS) Last Admin: 04/21/21 08:43 Dose: 20 mg Documented by: Tramadol HCl (Tramadol Hcl 50 Mg Tablet) 50 mg PO TID PRN (RX) PRN Reason: Pain Last Admin: 04/20/21 05:13 Dose: 50 mg Documented by: Verapamil HCl (Verapamil Hcl 120 Mg Tablet.Er) 240 mg PO DAILY [facility] Last Admin: 04/21/21 08:42 Dose: 240 mg Documented by: ALLERGIES Penicillins Adverse Reaction (Intermediate, Verified 04/10/21 14:08) Unknown COLLEEN Inhibitors Adverse Reaction (Verified 04/10/21 14:08) Cough dexamethasone [From Decadron] Adverse Reaction (Verified 04/10/21 14:08) Unknown erythromycin base Adverse Reaction (Verified 04/10/21 14:08) Unknown loratadine [From Claritin] Adverse Reaction (Verified 04/10/21 14:08) Unknown lorazepam [From Ativan] Adverse Reaction (Verified 04/10/21 14:08) Unknown olmesartan medoxomil [From Benicar] Adverse Reaction (Verified 04/10/21 14:08) Unknown DISCONTINUED MEDICATIONS METFORMIN 500 MG BID MECLIZINE 25 MG TID NEW PRESCRIPTIONS: XANAX 0.25 MG AT BEDTIME SCHEDULED PERCOCET 7.5-325 MG TID SCHEDULED ULTRAM 20 MG PO TID PRN PAIN PREDNISONE 10 MG DAILY FOR 5 DAYS SMOKING: NOT APPLICABLE DISEASE SPECIFIC EDUCATION: PATIENT ORIENTED TO SELF USE OF OXYGEN MEDICATION LAB REVIEW: 04/21/21 04:12 04/21/21 04:12 04/21/21 04:12: Sodium 125.9 L, Potassium 3.92, Chloride 77.6 L, Carbon Dioxide 42.5 H*, Anion Gap 9.72, BUN 15.8, Creatinine 0.84, Estimated GFR (MDRD) 65.00, BUN/Creatinine Ratio 18.80, Glucose 101.5, Calcium 8.52, Total Bilirubin 0.99, AST 53.2 H, ALT 39.3 H, Alkaline Phosphatase 81.3, Total Protein 6.46, Albumin 3.62, Globulin 2.84, Albumin/Globulin Ratio 1.27 04/21/21 04:12: WBC 12.18 H, RBC 5.03, Hgb 12.6, Hct 40.0, MCV 79.5 L, MCH 25.0 L, MCHC 31.5 L, RDW Coeff of Melissa 17.4 H, Plt Count 260, Immature Gran % (Auto) 0.5, Neut % (Auto) 82.6 H, Lymph % (Auto) 8.5 L, Grimes % (Auto) 7.4, Eos % (Auto) 0.8, Baso % (Auto) 0.2, Neut # (Auto) 10.1 H, Lymph # (Auto) 1.0, Grimes # (Auto) 0.9, Eos # (Auto) 0.1, Baso # (Auto) 0.0, Immature Gran # (Auto) 0.1 04/20/21 09:55: Sodium 128.3 L, Potassium 4.35, Chloride 82.2 L, Carbon Dioxide 37.1 H, Anion Gap 13.35, BUN 17.7 H, Creatinine 0.83, Estimated GFR (MDRD) 66.00, BUN/Creatinine Ratio 21.32, Glucose 135.8 H, Calcium 8.39 L, Total Bilirubin 0.91, AST 29.2, ALT 24.6, Alkaline Phosphatase 64.2, Total Protein 6.06 L, Albumin 3.38 L, Globulin 2.68, Albumin/Globulin Ratio 1.26 04/20/21 09:55: WBC 14.87 H, RBC 5.02, Hgb 12.5, Hct 40.1, MCV 79.9 L, MCH 24.9 L, MCHC 31.2 L, RDW Coeff of Melissa 17.8 H, Plt Count 261, Immature Gran % (Auto) 0.7, Neut % (Auto) 86.8 H, Lymph % (Auto) 5.4 L, Grimes % (Auto) 6.3, Eos % (Auto) 0.7, Baso % (Auto) 0.1, Neut # (Auto) 12.9 H, Lymph # (Auto) 0.8, Grimes # (Auto) 0.9, Eos # (Auto) 0.1, Baso # (Auto) 0.0, Immature Gran # (Auto) 0.1 PLAN: DISCHARGE TO [facility] REFERRAL HAS BEEN SENT; PATIENT HAS BEEN ACCEPTED FOR ADMISSION DIET: 1800 CALORIE ADA DIET, NO GRAPEFRUIT OR GRAPEFRUIT JUICE ACTIVITY: UP TO RECLINER DESIRED (PATIENT SLEEPS IN RECLINER) ELEVATE LEGS BSC OR BATHROOM TOLERATED OXYGEN PER NASAL CANNULA AT 3 LITERS CONTINUOUSLY NO LABS VITAL SIGNS PER HOSPICE PROTOCOL AND FACILITY POLICY INCONTINENT CARE PRN OTHER ORDERS PER [facility] CODE STATUS: DO NOT RESUSCITATE PATIENT WILL BE SEEN ON INTERMEDIATE ROUNDS BY DR. SULLIVAN/SUSAN LOPEZ APRN/KATIA DWYER APRN MS. IRENE IS ALERT TO PERSON. SHE IS FORGETFUL. SHE IS DISCHARGING TODAY TO [place]. MS. IRENE IS ABLE TO FEED HERSELF AND HAS A GOOD APPETITE OF 75- 100% FOR MEALS. SHE DRIBBLES WITH URINATION AND WEARS DEPENDS. SHE ALSO [place]SFERS WITH ASSIST OF 2 STAFF MEMB[place] [facility] [place] GAIT IS SLOW AND UNSTEADY SHE REQUIRES AT LEAST 2 STAFF MEMBERS FOR TRANSFERS. MS. IRENE REPORTS SHE IS UNABLE TO SLEEP IN THE BED AND SLEEPS IN THE RECLINER. HER DAUGHTER VERIFIES THAT SHE SLEEPS IN THE RECLINER AT HOME. HYDRATION STATUS IS GOOD. SKIN IS INTACT. SKIN FOLDS (GROIN AND ABDOMEN) ARE PINK AND MOIST. NYSTOP POWDER APPLIED TOPICALLY TID TO THESE AREAS. MD SUSAN NOWAK, COMPLIANCE PROJECT MANAGER
[2021-04-21 14:05] VITALS: BP 99/65; TEMP 97.8
--- NOTE | 2021-04-22 09:30 | PN ---
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 Condition seems to have stabilized with the pain being under control. Appetite is below normal. Overall the family is happy with her progress and want her to be comfortable. They are still thinking about Hospice. She is seen and examined with the nurse practitioner. TIME SPENT: More than 30 minutes. Plan and coordination of the patient's care discussed in the presence of nurse. WOOD
--- NOTE | 2021-04-22 09:46 | PN ---
DATE OF SERVICE: 04/18/21 SUBJECTIVE: 80-year-old white female hospitalized with bilateral pneumonia, respiratory failure. 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 The patient is practically end-stage. She is on comfort measures. At the present time she is sitting up in the chair comfortable. The pain she rates as 2 to 3 on a scale of 1 to 10. The son, Patricio, is present in the room. REVIEW OF SYSTEMS: CONSTITUTIONAL: No night sweats. No fatigue, malaise, lethargy. No fever or chills. HEENT: Eyes: No visual changes. No eye pain. No eye discharge. ENT: No runny nose. No epistaxis. No sinus pain. No sore throat. No odynophagia. No congestion. RESPIRATORY: No cough, no congestion. No hemoptysis. No shortness of breath. CARDIOVASCULAR: No angina symptoms. No CHF symptoms. No atypical chest pain for CAD. No palpitations. No PND. No orthopnea. GASTROINTESTINAL: No abdominal pain. No nausea or vomiting. No diarrhea or constipation. No hematemesis. No hematochezia. GENITOURINARY: No urgency. No frequency. No dysuria. No hematuria. No obstructive symptoms. No discharge. No pain. No significant abnormal bleeding. MUSCULOSKELETAL: Mild shoulder pain. NEUROLOGICAL: No headache. No neck pain. No syncope. No seizures. No dizziness. PSYCHIATRIC: Not anxious. No depression. No suicidal thoughts. No homicidal thoughts. SKIN: No rash. No lesions. No wounds. ENDOCRINE: No unexplained weight loss. No weight gain. HEMATOLOGIC/LYMPHATIC: No anemia. No purpura. No petechiae. No prolonged or excessive bleeding. No palpable lymph nodes. PHYSICAL EXAMINATION: VITAL SIGNS: Temperature 97.7, pulse 90, respiratory rate 18, blood pressure 150/90, pulse ox 96%. HEENT: Head normocephalic, atraumatic. Eyes: Extraocular muscles are intact. Pupils are equal, round and reactive to light and accommodation. Ears: No lesions. Nose appeared normal. Throat: No exudate or erythema. NECK: Supple. No JVD, no carotid bruit. No lymphadenopathy or thyromegaly. LUNGS: Decreased breath sounds but clear to auscultation. Percussion note normal. Chest symmetrical. HEART: S1, S2, no S3. No murmurs. No cyanosis or clubbing. No ascites. Pulses: Dorsalis pedis and posterior tibial pulses +1 to +2 bilaterally. ABDOMEN: Soft. Nontender. Bowel sounds active. No CVA tenderness. No mass felt. EXTREMITIES: No edema. Full range of motion of all extremities, equal. NEUROLOGIC: No focal deficit. Cranial nerves II through XII are grossly intact. No headache. No double vision. SKIN: Not dry. Intact. Turgor - normal. LYMPHATIC: No palpable lymph nodes/no lymphedema. MUSCULOSKELETAL: Normal joints with no swelling. Muscle tone is normal. LABS: Hemoglobin 12.9, hematocrit 42, WBC 14,000, normal differential. Creatinine 0.7, BUN 19, potassium 4.7. ASSESSMENT: 1. Bilateral pneumonia with respiratory failure with mets to the lungs with anaplastic carcinoma of the thyroid. PLAN: 1. Treat patient conservatively with just comfort care, declined any referral to any art sales consultant like hematology/oncologist, et cetera. The family is considering hospice. 2. Discharge. CONDITION: Stable. TIME SPENT: More than 30 minutes. Plan and coordination of the patient's care discussed in the presence of nurse. WOOD
--- NOTE | 2021-04-22 09:53 | PN ---
DATE OF SERVICE: 04/19/21 SUBJECTIVE: 80-year-old white male hospitalized with respiratory failure. The patient has anaplastic carcinoma of the thyroid which has metatastisized to the lung. The patient is DNR. The patient's condition more or less has been stable with the patient's saturation 95 to 96 on 2L. SonPatricio is present in the room. The patient says she is feeling better, has less pain in the shoulders. She is somewhat drowsy. PHYSICAL EXAMINATION: VITAL SIGNS: Temperature 96.7, pulse 100, respiratory rate 16, blood pressure 130/85, pulse ox 96%. HEENT: Head normocephalic, atraumatic. Eyes: Extraocular muscles are intact. Pupils are equal, round and reactive to light and accommodation. Ears: No lesions. Nose appeared normal. Throat: No exudate or erythema. NECK: Supple. No JVD, no carotid bruit. No lymphadenopathy or thyromegaly. LUNGS: Decreased breath sounds but clear to auscultation. Percussion note normal. Chest symmetrical. HEART: S1, S2, no S3. No murmurs. No cyanosis or clubbing. No ascites. Pulses: Dorsalis pedis and posterior tibial pulses +1 to +2 bilaterally. ABDOMEN: Soft. Nontender. Bowel sounds active. No CVA tenderness. No mass felt. EXTREMITIES: No edema. Full range of motion of all extremities, equal. NEUROLOGIC: No focal deficit. Cranial nerves II through XII are grossly intact. No headache. No double vision. SKIN: Not dry. Intact. Turgor - normal. LYMPHATIC: No palpable lymph nodes/no lymphedema. MUSCULOSKELETAL: Normal joints with no swelling. Muscle tone is normal. LABS: Hemoglobin 13.4, hematocrit 43, WBC 14,000, normal differential. Creatinine 0.7, BUN 20, potassium 4.9. ASSESSMENT: 1. Respiratory failure with pneumonia seems to be resolving. 2. Anaplastic carcinoma of the thyroid with metastatis to the lungs. 3. Also has other problems like atrial fib, CHF, hypertension, diabetes mellitus. PLAN: 1. Control the patient's symptoms like pain. 2. Discontinue Metformin. 3. Potassium supplements to be decreased to 20 mEq t.i.d. instead of 40. CONDITION: More or less stable. Prognosis is poor. TIME SPENT: More than 30 minutes. Plan and coordination of the patient's care discussed in the presence of nurse. WOOD
--- NOTE | 2021-04-22 10:36 | PN ---
DATE OF SERVICE: 04/20/21 SUBJECTIVE: 80-year-old white female hospitalized with respiratory failure and shortness of breath. The patient has chronic lung disease. On top of that she has anaplastic thyroid carcinoma which has metastatized to both lungs. Her condition seems to be deteriorating and she is short of breath even at rest. This morning the patient is drowsy, denies any pain. PHYSICAL EXAMINATION: VITAL SIGNS: Temperature 98, pulse 110, respiratory rate 18, blood pressure 135/72, pulse ox 94% on 2L. HEENT: Head normocephalic, atraumatic. Eyes: Extraocular muscles are intact. Pupils are equal, round and reactive to light and accommodation. Ears: No lesions. Nose appeared normal. Throat: No exudate or erythema. NECK: Supple. No JVD, no carotid bruit. No lymphadenopathy or thyromegaly. LUNGS: Decreased breath sounds bilaterally with absent breath sounds at bases. Clear to auscultation. Percussion note normal. Chest symmetrical. HEART: S1, S2, no S3. Tachycardia. No cyanosis or clubbing. No ascites. Pulses: Dorsalis pedis and posterior tibial pulses +1 to +2 bilaterally. ABDOMEN: Soft. Nontender. Bowel sounds active. No CVA tenderness. No mass felt. EXTREMITIES: No edema. Full range of motion of all extremities, equal. NEUROLOGIC: No focal deficit. Cranial nerves II through XII are grossly intact. No headache. No double vision. SKIN: Not dry. Intact. Turgor - normal. LYMPHATIC: No palpable lymph nodes/no lymphedema. MUSCULOSKELETAL: Normal joints with no swelling. Muscle tone is normal. LABS: Hemoglobin 12.5, hematocrit 40, WBC 14,000, normal differential. Creatinine 0.8, BUN 17, potassium 4.3. ASSESSMENT: 1. Bilateral pneumonia with bilateral mets coming from anaplastic thyroid carcinoma. 2. Chronic lung disease. 3. Congestive heart failure. 4. Dilated cardiomyopathy. 5. Morbid obesity. PLAN: 1. Continue supportive measures. 2. The patient already has a bed at [facility]. 3. The patient's respiratory status seems to have deteriorated. 4. Will observe her one more day and see where she goes from here. TIME SPENT: More than 30 minutes. Plan and coordination of the patient's care discussed in the presence of nurse. WOOD
--- NOTE | 2021-04-24 13:51 | PN ---
DATE OF SERVICE: 04/21/2021 SUBJECTIVE: The patient was seen and examined with the Nurse Practitioner. The patient's condition is stable. She has end stage metastatic disease of the anaplastic carcinoma. She was discharged home. TIME SPENT: More than 30 minutes. Plan and coordination of the patient's care discussed in the presence of nurse. WOOD
--- NOTE | 2021-04-24 14:40 | DS ---
DATE OF SERVICE: 04/21/21 FINAL DIAGNOSIS: 1. BILATERAL PNEUMONIA 2. 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 RESPIRATORY FAILURE, CHRONIC 4. HYPOKALEMIA, RESOLVED 5. HYPONATREMIA 6. GENERALIZED WEAKNESS 7. HYPERTENSION 8. CAD 9. ATRIAL FIBRILLATION ( ON ELIQUIS) 10. CHF 11. DILATED CARDIOMYOPATHY 12. DM, TYPE 2 13. NEUROPATHY 14. METABOLIC SYNDROME 15. OSTEOPENIA 16. FALLS 17. SINUSITIS 18. BILATERAL TOTAL KNEE REPLACEMENTS 19. CHOLECYSTECTOMY 20. HYSTERECTOMY 21. THYROIDECTOMY (03/04 DR. WILDER) 22. ECHO 04/12/2021, LVEF 52%, ENLARGED LEFT ATRIAL AND RIGHT VENTRICLE CAVITIES LAST VITALS Temp Pulse Resp BP Pulse Ox 97.6 F 95 H 20 142/78 H 95 04/21/21 05:11 04/21/21 05:11 04/21/21 05:11 04/21/21 05:11 04/21/21 05:11 DISCHARGE INSTRUCTIONS: 1. DISCHARGE TO [facility] [place] 2. [facility] REFERRAL HAS BEEN SENT; PATIENT HAS BEEN ACCEPTED FOR ADMISSION 3. OXYGEN PER NASAL CANNULA AT 3 LITERS CONTINUOUSLY 4. NO LABS 5. VITAL SIGNS PER HOSPICE PROTOCOL AND FACILITY POLICY 6. INCONTINENT CARE PRN 7. OTHER ORDERS PER [facility] MEDICATIONS AT DISCHARGE: Acetaminophen (Acetaminophen 325 Mg Tablet) 650 mg PO Q4H PRN PRN Reason: Fever >101or mild pain Last Admin: 04/15/21 06:07 Dose: 650 mg Documented by: Albuterol Sulfate (Albuterol Sulfate (Ventolin Hfa) 18 Gm 1 Puff With Spacer) 2 puff IH RTTID [facility] Last Admin: 04/21/21 04:45 Dose: 2 puff Documented by: Alprazolam (Alprazolam 0.25 Mg Tablet) 0.25 mg PO BEDTIME LAZARO (RX) Last Admin: 04/20/21 20:13 Dose: 0.25 mg Documented by: Apixaban (Apixaban 5 Mg Tab) 5 mg PO BID [facility] Last Admin: 04/21/21 08:57 Dose: 5 mg Documented by: Budesonide/Formoterol Fumarate (Budesonide/Formoterol Fumarate 160/4.5 Mcg Inhaler) 2 puff IH BID [facility] Last Admin: 04/21/21 08:48 Dose: 2 puff Documented by: Fluticasone Propionate (Fluticasone Propionate 16 Gm Nasal [place]) 2 spray LAYA DAILY [facility] Last Admin: 04/21/21 08:49 Dose: 2 spray Documented by: HCTZ/Losartan Potassium (Losartan/Hydrochlorothiazide 50/12.5 Mg Tab) 0.5 tab PO DAILY [facility] Last Admin: 04/21/21 08:41 Dose: 0.5 tab Documented by: Metolazone (Metolazone 2.5 Mg Tablet) 2.5 mg PO MoWeFr@0800 [facility] (HOLD ZAROXOLYN TOMORROW ONLY) Last Admin: 04/20/21 08:16 Dose: 2.5 mg Documented by: Nystatin (Nystatin 15 Gm Powder) 1 applic TP TID [facility] Last Admin: 04/21/21 08:47 Dose: 1 applic Documented by: Oxycodone/Acetaminophen (Oxycodone/Acetaminophen 7.5/325 Mg Tablet) 1 tab PO TID [facility] (RX) Last Admin: 04/21/21 08:43 Dose: 1 tab Documented by: Pantoprazole Sodium (Pantoprazole Sodium 40 Mg Tablet.Dr) 40 mg PO BIDAC [facility] Last Admin: 04/21/21 05:55 Dose: 40 mg Documented by: Potassium Chloride (Potassium Chloride 20 Meq Tab) 20 meq PO TIDWM [facility] Last Admin: 04/21/21 08:40 Dose: 20 meq Documented by: Prednisone (Prednisone 20 Mg Tablet) 10 mg PO DAILYWM [facility] ( NEW DOSE IS 10 MG DAILY FOR 5 DAYS) Last Admin: 04/21/21 08:43 Dose: 20 mg Documented by: Tramadol HCl (Tramadol Hcl 50 Mg Tablet) 50 mg PO TID PRN (RX) PRN Reason: Pain Last Admin: 04/20/21 05:13 Dose: 50 mg Documented by: Verapamil HCl (Verapamil Hcl 120 Mg Tablet.Er) 240 mg PO DAILY [facility] Last Admin: 04/21/21 08:42 Dose: 240 mg Documented by: NEW PRESCRIPTIONS: XANAX 0.25 MG AT BEDTIME SCHEDULED PERCOCET 7.5-325 MG TID SCHEDULED ULTRAM 20 MG PO TID PRN PAIN PREDNISONE 10 MG DAILY FOR 5 DAYS DISCONTINUED MEDICATIONS: METFORMIN 500 MG BID MECLIZINE 25 MG TID DIET INSTRUCTIONS: 1800 CALORIE ADA DIET, NO GRAPEFRUIT OR GRAPEFRUIT JUICE ACTIVITY: UP TO RECLINER DESIRED (PATIENT SLEEPS IN RECLINER) ELEVATE LEGS BSC OR BATHROOM TOLERATED SMOKING: NOT APPLICABLE DISEASE SPECIFIC EDUCATION: PATIENT ORIENTED TO SELF USE OF OXYGEN MEDICATION HOSPITAL COURSE: This is an 80-year-old white female who was brought to the emergency room with increasing weakness and shortness of breath over the past several days. Chest CT revealed some bilateral bibasilar pneumonia. Chest CT also revealed that she had multiple small nodules which were likely metastasis to lungs and lymph nodes. She recently about two to three months ago had had a thyroidectomy which was positive for anaplastic papillary thyroid carcinoma by Dr. Wilder. At that time he explained the likelihood that this would progress and spread. At that time she did not wish for any further treatment. She declined to see oncology. She did not want chemo, radiation or any treatment for any sort of cancer if it had spread. Initially, ABGs p02 was in the low 50s. We placed her on oxygen at 3L/NC. This seemed to stabilize. For the past several days she has complained of pain in the right side of her neck region down into her chest which I do believe is due to lymphadenopathy likely from metastasis. She was started on Percocet 7.5 q.6 and this has controlled her pain. The family and the patient are all in agreement that she is unable to care for herself at home. She was previously living by herself. She is going to go to [place] and we will have already made the hospice referral so she will go to hospice [facility]. She was initially placed on IV antibiotics. Coughing seemed to improve somewhat but she has had pretty rapid deterioration likely due to the metastasis, intermittent confusion. She is not eating very well but she is comfortable and that is the goal of the family. We will discharge her with poor prognosis to [place]. Will followup with her on rounds there. [facility] is to continue her care. We will continue the Percocet there as well and will follow with her closely. TIME SPENT: More than 60 minutes. WOOD
--- NOTE | 2021-04-24 14:42 | DS ---
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 WILDER) ECHO 04/12/2021 LVEF 52% ENLARGED LEFT ATRIAL AND RIGHT VENTRICLE CAVITIES LAST VITALS: Temp Pulse Resp BP Pulse Ox 97.6 F 95 H 20 142/78 H 95 04/21/21 05:11 04/21/21 05:11 04/21/21 05:11 04/21/21 05:11 04/21/21 05:11 DISCHARGE INSTRUCTIONS: DISCHARGE TO [facility]. [facility] REFERRAL HAS BEEN SENT; PATIENT HAS BEEN ACCEPTED FOR ADMISSION. OXYGEN PER NASAL CANNULA AT 3 LITERS CONTINUOUSLY. NO LABS. VITAL SIGNS PER HOSPICE PROTOCOL AND FACILITY POLICY. INCONTINENT CARE PRN. OTHER ORDERS PER [facility]. CODE STATUS: DO NOT RESUSCITATE. PATIENT WILL BE SEEN ON SNF ROUNDS BY DR. SULLIVAN/SUSAN LOPEZ APRN/KATIA DWYER APRN TAKE THESE MEDICATIONS AT HOME: Acetaminophen (Acetaminophen 325 Mg Tablet) 650 mg PO Q4H PRN PRN Reason: Fever >101or mild pain Last Admin: 04/15/21 06:07 Dose: 650 mg Documented by: Albuterol Sulfate (Albuterol Sulfate (Ventolin Hfa) 18 Gm 1 Puff With Spacer) 2 puff IH RTTID LAZARO Last Admin: 04/21/21 04:45 Dose: 2 puff Documented by: Alprazolam (Alprazolam 0.25 Mg Tablet) 0.25 mg PO BEDTIME LAZARO (RX) Last Admin: 04/20/21 20:13 Dose: 0.25 mg Documented by: Apixaban (Apixaban 5 Mg Tab) 5 mg PO BID LAZARO Last Admin: 04/21/21 08:57 Dose: 5 mg Documented by: Budesonide/Formoterol Fumarate (Budesonide/Formoterol Fumarate 160/4.5 Mcg Inhaler) 2 puff IH BID LAZARO Last Admin: 04/21/21 08:48 Dose: 2 puff Documented by: Fluticasone Propionate (Fluticasone Propionate 16 Gm Nasal [place]) 2 spray LAYA DAILY [facility] Last Admin: 04/21/21 08:49 Dose: 2 spray Documented by: HCTZ/Losartan Potassium (Losartan/Hydrochlorothiazide 50/12.5 Mg Tab) 0.5 tab PO DAILY LAZARO Last Admin: 04/21/21 08:41 Dose: 0.5 tab Documented by: Metolazone (Metolazone 2.5 Mg Tablet) 2.5 mg PO MoWeFr@0800 [facility] (HOLD ZAROXOLYN TOMORROW ONLY) Last Admin: 04/20/21 08:16 Dose: 2.5 mg Documented by: Nystatin (Nystatin 15 Gm Powder) 1 applic TP TID [facility] Last Admin: 04/21/21 08:47 Dose: 1 applic Documented by: Oxycodone/Acetaminophen (Oxycodone/Acetaminophen 7.5/325 Mg Tablet) 1 tab PO TID LAZARO (RX) Last Admin: 04/21/21 08:43 Dose: 1 tab Documented by: Pantoprazole Sodium (Pantoprazole Sodium 40 Mg Tablet.Dr) 40 mg PO BIDAC [facility] Last Admin: 04/21/21 05:55 Dose: 40 mg Documented by: Potassium Chloride (Potassium Chloride 20 Meq Tab) 20 meq PO TIDWM LAZARO Last Admin: 04/21/21 08:40 Dose: 20 meq Documented by: Prednisone (Prednisone 20 Mg Tablet) 10 mg PO DAILYWM [facility] ( NEW DOSE IS 10 MG DAILY FOR 5 DAYS) Last Admin: 04/21/21 08:43 Dose: 20 mg Documented by: Tramadol HCl (Tramadol Hcl 50 Mg Tablet) 50 mg PO TID PRN (RX) PRN Reason: Pain Last Admin: 04/20/21 05:13 Dose: 50 mg Documented by: Verapamil HCl (Verapamil Hcl 120 Mg Tablet.Er) 240 mg PO DAILY [facility] Last Admin: 04/21/21 08:42 Dose: 240 mg Documented by: ALLERGIES: Penicillins Adverse Reaction (Intermediate, Verified 04/10/21 14:08) Unknown COLLEEN Inhibitors Adverse Reaction (Verified 04/10/21 14:08) Cough dexamethasone [From Decadron] Adverse Reaction (Verified 04/10/21 14:08) Unknown erythromycin base Adverse Reaction (Verified 04/10/21 14:08) Unknown loratadine [From Claritin] Adverse Reaction (Verified 04/10/21 14:08) Unknown lorazepam [From Ativan] Adverse Reaction (Verified 04/10/21 14:08) Unknown olmesartan medoxomil [From Benicar] Adverse Reaction (Verified 04/10/21 14:08) Unknown DISCONTINUED MEDICATIONS: METFORMIN 500 MG BID MECLIZINE 25 MG TID NEW PRESCRIPTIONS: XANAX 0.25 MG AT BEDTIME SCHEDULED PERCOCET 7.5-325 MG TID SCHEDULED ULTRAM 20 MG PO TID PRN PAIN PREDNISONE 10 MG DAILY FOR 5 DAYS SMOKING: NOT APPLICABLE DISEASE SPECIFIC EDUCATION: PATIENT ORIENTED TO SELF USE OF OXYGEN MEDICATION LAB REVIEW: 04/21/21 04:12 04/21/21 04:12 04/21/21 04:12: Sodium 125.9 L, Potassium 3.92, Chloride 77.6 L, Carbon Dioxide 42.5 H*, Anion Gap 9.72, BUN 15.8, Creatinine 0.84, Estimated GFR (MDRD) 65.00, BUN/Creatinine Ratio 18.80, Glucose 101.5, Calcium 8.52, Total Bilirubin 0.99, AST 53.2 H, ALT 39.3 H, Alkaline Phosphatase 81.3, Total Protein 6.46, Albumin 3.62, Globulin 2.84, Albumin/Globulin Ratio 1.27 04/21/21 04:12: WBC 12.18 H, RBC 5.03, Hgb 12.6, Hct 40.0, MCV 79.5 L, MCH 25.0 L, MCHC 31.5 L, RDW Coeff of Melissa 17.4 H, Plt Count 260, Immature Gran % (Auto) 0.5, Neut % (Auto) 82.6 H, Lymph % (Auto) 8.5 L, Kleberg % (Auto) 7.4, Eos % (Auto) 0.8, Baso % (Auto) 0.2, Neut # (Auto) 10.1 H, Lymph # (Auto) 1.0, Kleberg # (Auto) 0.9, Eos # (Auto) 0.1, Baso # (Auto) 0.0, Immature Gran # (Auto) 0.1 04/20/21 09:55: Sodium 128.3 L, Potassium 4.35, Chloride 82.2 L, Carbon Dioxide 37.1 H, Anion Gap 13.35, BUN 17.7 H, Creatinine 0.83, Estimated GFR (MDRD) 66.00, BUN/Creatinine Ratio 21.32, Glucose 135.8 H, Calcium 8.39 L, Total Bilirubin 0.91, AST 29.2, ALT 24.6, Alkaline Phosphatase 64.2, Total Protein 6.06 L, Albumin 3.38 L, Globulin 2.68, Albumin/Globulin Ratio 1.26 04/20/21 09:55: WBC 14.87 H, RBC 5.02, Hgb 12.5, Hct 40.1, MCV 79.9 L, MCH 24.9 L, MCHC 31.2 L, RDW Coeff of Melissa 17.8 H, Plt Count 261, Immature Gran % (Auto) 0.7, Neut % (Auto) 86.8 H, Lymph % (Auto) 5.4 L, Kleberg % (Auto) 6.3, Eos % (Auto) 0.7, Baso % (Auto) 0.1, Neut # (Auto) 12.9 H, Lymph # (Auto) 0.8, Kleberg # (Auto) 0.9, Eos # (Auto) 0.1, Baso # (Auto) 0.0, Immature Gran # (Auto) 0.1 DIET: 1800 CALORIE ADA DIET, NO GRAPEFRUIT OR GRAPEFRUIT JUICE ACTIVITY: UP TO RECLINER DESIRED (PATIENT SLEEPS IN RECLINER) ELEVATE LEGS BSC OR BATHROOM TOLERATED HOSPITAL COURSE: 80 year old white female hospitalized with bilateral pneumonia and respiratory failure. 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 The patient's condition is endstage consider the patient has dilated cardiomyopathy, CHF, atrial fibrillation and morbid obesity. The patient's family TIME SPENT: More than 60 minutes. MTDD
== END 2021-04-21 14:15 | disposition other institution (70) | DRG 999 ==
LOC: ED 14:00 → MEDSURG A 17:19
PROVIDERS: ADMIT Internal Medicine; ATTEND Internal Medicine
DX: E87.6 Hypokalemia; R26.81 Unsteadiness on feet; I48.91 Unspecified atrial fibrillation; J44.9 Chronic obstructive pulmonary disease, unspecified; R06.02 Shortness of breath; C78.00 Secondary malignant neoplasm of unspecified lung; R06.2 Wheezing; R05 Cough; E66.01 Morbid (severe) obesity due to excess calories; C73 Malignant neoplasm of thyroid gland; I42.0 Dilated cardiomyopathy; F41.9 Anxiety disorder, unspecified; R06.00 Dyspnea, unspecified; Z20.822 Contact with and (suspected) exposure to COVID-19; E11.9 Type 2 diabetes mellitus without complications; I50.9 Heart failure, unspecified; R53.1 Weakness; J96.10 Chronic respiratory failure, unspecified whether with hypoxia or hypercapnia; R07.81 Pleurodynia; I25.10 Atherosclerotic heart disease of native coronary artery without angina pectoris